=== PATIENT | male | born 1960 | race Caucasian/White ===

== ENCOUNTER 2017-08-20 13:25 | Emergency (ER) | payer OTHER ==
[~2017-08-20] VITALS: Ht 180.3 cm; Wt 90.4 kg
[2017-08-20 13:35] VITALS: TEMP 36.4; Ht 180.3 cm; Wt 90.4 kg
[2017-08-20] MEDS ORDERED: PROPARACAINE HCL 0.5% OP SOLN 15 ML BTL ONE (13:47)
[2017-08-20 14:16] VITALS: BP 145/78; PULSE 76; O2SAT 98
--- NOTE | 2017-08-20 19:40 | EMERGENCY ROOM VISIT NOTE ---
ED Visit Note First contact with patient: 13:40 Chief Complaint: Right eye bleeding. History of Present Illness: Mr. Sandoval is a 57-year-old white male who ambulates into the ED accompanied by his complaining of blood in the subconjunctival space of the lateral right eye. Historically patient denies any previous significant eye diseases/trauma/ surgery. Patient reports approximately 15-20 minutes prior to arrival at the hospital he walked out into his garage to have a cigarette. He reports he felt a mild pressure sensation over the lateral aspect of the right eye and rub the right eye. He then went into see his and noted moderate amount of blood over the lateral aspect of the right eye and a subconjunctival space. Currently he reports he is still having mild pressure sensation over the lateral aspect of the right eye. He rates his discomfort 2/10. The pain is nonradiating. He has not identified any aggravating or relieving factors related to this discomfort. He has not taken any medication for this discomfort prior to arrival at the hospital. Associated with his pain he reports he has mild light sensitivity. He denies fevers, chills, sweats, skin eruptions, headache, dizziness, lightheadedness, visual changes, floaters, sparkling lights, recent eye trauma. Review of Systems: As noted above in history of present illness. Past Medical History: Patient denies. Current Medications: Patient denies. Allergies to Medications: Patient denies. Social History: Physical Examination: Vital Signs: Date Time Temp Pulse Resp B/P (MAP) Pulse Ox O2 Delivery O2 Flow Rate FiO2 08/20/17 14:16 76 16 145/78 98 08/20/17 13:35 36.4 74 18 150/91 96 Room Air GENERAL: 57-year-old male in no acute distress, nontoxic-appearing, afebrile and hemodynamically stable. NEUROLOGICAL: Awake, alert and oriented to person, place and time. Answering questions appropriately and following commands. Normal gait. SKIN: Warm, dry and pink. No soft tissue trauma noted. HEENT: Atraumatic and normocephalic. PERRLA. EOMI without nystagmus. Sclera bloody over the lateral and inferior aspect of the orbit. Conjunctiva pink without drainage. A small hand like material was noted over the 9 o'clock position on the cornea. No other foreign bodies were noted under the eyelids are embedded in the cornea. Anterior chamber was clear. Visual acuity: 20/40 bilaterally without correction. On slit lamp examination the foreign body was noted again. There was no uptake of the stain throughout the cornea. ED Course: Patient is assessed as noted above. Patient's medication list was reviewed. Alcaine was used to anesthetize the eye for examination. Before body was easily removed with a sterile saline saturated cotton-tip appendectomy later. Patient was educated about today's findings and instructed on his treatment plan ; he verbalized understanding and agreement with this plan. Clinical Impression: Subconjunctival hemorrhage of the right eye. Radial foreign body. Disposition: Patient discharged home in stable condition accompanied by his ; prior to departure he was reassessed and subjectively reported he was pain- free. Plan: Patient is encouraged to use acetaminophen every 6 hours as needed for comfort and also cool compresses for comfort. Patient is encouraged return ED for recheck in 36-48 hours. Patient is encouraged return ED for uncontrolled pain, visual changes, headaches , vomiting, fever or any new/concerning symptoms.
== END 2017-08-20 14:18 | disposition home or self-care (01) ==
LOC: C.EDB 13:28 → C.EDD 14:18
DX: H11.31 Conjunctival hemorrhage, right eye (principal); T15.01XA Foreign body in cornea, right eye, initial encounter; X58.XXXA Exposure to other specified factors, initial encounter

== ENCOUNTER 2017-08-23 15:55 | Emergency (ER) | payer OTHER ==
[~2017-08-23] VITALS: Ht 180.3 cm; Wt 91.7 kg
[2017-08-23 15:59] VITALS: BP 121/78; PULSE 80; TEMP 37; O2SAT 95; Ht 180.3 cm; Wt 91.7 kg
--- NOTE | 2017-08-23 16:39 | EMERGENCY ROOM VISIT NOTE ---
History First contact with patient: 16:05 Chief Complaint: EYE ASSESSMENT Stated Complaint: RIGHT EYE RECHECK History of Present Illness The patient is a 57 year old male who presents to the Emergency Room via private vehicle accompanied by female and small child with complaints of "right eye recheck". The patient states he was seen here 3 days ago for a subconjunctival hemorrhage. He states that after he went home that evening the redness worsened. He notes only slight change in vision. He denies any pain or trauma. He states he was recommended to come back for recheck of the eye. Review of Systems A complete 6-point Review of Systems was discussed with the patient, with pertinent positives and negatives listed in the History of Present Illness. All remaining Review of Systems questions can be considered negative unless otherwise specified. Past Medical/Surgical History Medical Problems: (1) No Known Active Medical Problems Family History Non contributory Social History Smoking Status: Current Every Day Smoker Marital Status: Housing Status: lives with significant other Occupation Status: employed Current/Historical Medications No Active Prescriptions or Reported Meds Physical Exam Vital Signs Date Time Temp Pulse Resp B/P (MAP) Pulse Ox O2 Delivery O2 Flow Rate FiO2 08/23/17 15:59 37.0 80 20 121/78 95 Room Air Right Eye Acuity: 20/50 Left Eye Acuity: 20/30 Physical Exam VITAL SIGNS - Vital signs and nursing notes were reviewed. Stable, GENERAL - 57-year-old male appearing his stated age who is in no acute distress. Communicates well with provider and answers questions appropriately. SKIN - Without rashes. Skin around eye is unremarkable. HEAD - NC/AT. EYES - PERRL with EOMI bilaterally. Sclera anicteric. R subconjucitival hemorrage, diffuse. Does not cross limbus. No protrusion. No tears or blood in eye moisture. Palpebral conjunctiva pink and moist with no injection noted. An Automated Tonometer was utilized to obtain bilateral orbital pressures. The pressures in the LEFT eye were found to be 16, 16 with an average of 16. The pressures in the RIGHT eye were found to be 15, 15 with an average of 15. Patient tolerated the procedure well and no complications were met. Slit Lamp Examination was performed of the R eye(s). Alcaine drops were applied to the affected eye(s) for proper anesthetization. The affected eye(s) were stained with Fluorescein stain to precipitate adequate visualization of any conjunctival/scleral excoriations or ulcers. The patient's face was comfortably rested on the chin guard of the slit lamp apparatus. The lights were dimmed and the affected eye(s) were thoroughly examined under microscopy using the blue light. No uptake was present in the R eye just remonstration of the diffuse subconjunctival hemorrhage. Negative Seidels sign. Additionally, the eye(s) were examined under microscopy using the regular light. Close examination revealed No other ailments. Patient tolerated the procedure well and no complications were met. Medical Decision & Procedures Medical Decision Patient was seen and evaluated as above. He presents to us today with a right subconjunctival hemorrhage. I suspect that the worsening of the submental hemorrhage after he was seen here was secondary to the blood being dispersed throughout the subconjunctival region. There is no evidence of hemorrhage. There is no evidence of puncture. Slitlamp exam unremarkable. I suspect that it will take weeks for this to be absorbed. Pressures were normal. He is to follow up with ophthalmology later this week for reevaluation. He was thoroughly educated upon worrisome symptoms which to return, had questions prior to discharge, and was discharged home in good condition. In the evaluation and treatment of this patient, the following differential diagnoses were considered: Corneal Abrasion, Conjunctivitis, Eye Contusion, Globe Injury, Orbital Floor Injury (Blowout Fracture), Corneal Ulcer, Keratitis , Herpes Zoster Opthalmic, Blepharitis, Orbital Cellulitis, Iritis, Scleritis/ Episcleritis, Uveitis, Temporal Arteritis, Subconjunctival Hemorrhage. Impression Primary Impression: Subconjunctival hemorrhage of right eye Departure Information Dispostion Home / Self-Care Condition GOOD Prescriptions No Active Prescriptions or Reported Meds Referrals Ashok Mcghee D.O. (PCP) Basim Carrillo MD Patient Instructions My [facility] Additional Instructions You were seen in the emergency department for reevaluation of your subconjunctival hemorrhage in the right eye. At this time I believe that you're healing process is appropriate. I would recommend however follow-up with an [facility] for reevaluation later in the week. Please call your eye doctor and if not able to see them please call the eye doctor that I have listed, Dr. Carrillo Please return with any new/concerning symptoms. Thank you for your time.
== END 2017-08-23 16:40 | disposition home or self-care (01) ==
LOC: C.EDB 15:55 → C.EDD 16:40
DX: H11.31 Conjunctival hemorrhage, right eye (principal); F17.200 Nicotine dependence, unspecified, uncomplicated

== ENCOUNTER 2019-04-21 07:07 | Inpatient (IN) ==
[2019-04-21] MEDS ORDERED: dilTIAZem HCl 5 MG/ML 5 ML VIAL IV STA (07:22)
[2019-04-21] MEDS ORDERED: SODIUM CHLORIDE 0.9% 1000ML 1,000 ML IV SCH (07:30)
[2019-04-21] MEDS: MAGNESIUM SULFATE / D5W 1 GM/100 ML BAG IV SCH ×3 (07:39→10:52)
--- NOTE | 2019-04-21 07:44 | XRay Report ---
XR chest 1V portable HISTORY: Atypical Chest Pain COMPARISON: Chest 07/26/2014. FINDINGS: The lungs are clear. Cardiac silhouette is normal in size. No pleural effusions. No pneumot horax. IMPRESSION: No acute process. Electronically signed by: Benjamin Gaston M.D. 04/21/2019 7:43 AM
[2019-04-21 07:56] LABS: Basophils # (auto) 0.03 K/uL (0-0.2); Basophils % (auto) 0.4 %; Eosinophils # (auto) 0.01 K/uL (0-0.5); Eosinophils % (auto) 0.1 %; Hematocrit (blood only) 47.7 % (42-52); Hemoglobin 17.1 g/dL (14.0-18.0); Immature Granulocytes # (auto) 0.01 K/uL (0.00-0.02); Immature Granulocytes % (auto) 0.1 %; Lymphocytes # (auto) 1.33 K/uL (1.2-3.4); Lymphocytes % (auto) 17.3 %; Mean Corpuscular Hemoglobin 32.5 pg (25-34); Mean Corpuscular Hgb Conc 35.8 g/dL (32-36); Mean Corpuscular Volume 90.7 fL (80-100); Mean Platelet Volume 10.5 fL (7.4-10.4); Monocytes # (auto) 1.08 K/uL (0.11-0.59); Monocytes % (auto) 14.1 %; Neutrophils # (auto) 5.21 K/uL (1.4-6.5); Platelet Count 150 K/uL (130-400); RDW Standard Deviation 43.2 fL (36.4-46.3); Red Blood Count 5.26 M/uL (4.7-6.1); White Blood Count 7.67 K/uL (4.8-10.8)
[2019-04-21 08:09] LABS: iSTAT Creatinine 1.1 mg/dl (0.6-1.3); iSTAT Hemoglobin 17.3 g/dl (14.0-18.0); iSTAT Ionized Calcium 1.11 mmol/l (1.12-1.32)
[2019-04-21 08:09] LABS: Appearance Urine Clear (Clear); Bacteria Urine Automated Negative (Negative); Blood Urine Trace (Negative); Color Urine Dark Yellow; Epithelial Cell Urine Auto 20-30 /lpf (0-5); Glucose Urine UA Negative (Negative); Leukocyte Esterase Urine Negative (Negative); Nitrite Urine Negative (Negative); Protein Urine Trace (Negative); Specific Gravity Urine 1.031 (1.000-1.030); Urobilinogen Urine Negative (Negative)
[2019-04-21 08:15] LABS: Bilirubin Urine Negative (Negative); Ictotest Urine Negative (Negative)
[2019-04-21 08:16] LABS: Ketones Urine 3+ (Negative)
[2019-04-21 08:21] LABS: Alanine Aminotransferase 53 U/L (12-78); Albumin Level 3.8 gm/dl (3.4-5.0); Aspartate Aminotransferase 30 U/L (15-37); Blood Urea Nitrogen 15 mg/dl (7-18); Calcium 8.6 mg/dl (8.5-10.1); Carbon Dioxide 23 mmol/L (21-32); Chloride 102 mmol/L (98-107); Creatinine Clr Calc Pharmacy 73.4 ml/min; Est GFR (African American) 80.6; Est GFR (Non-African American) 69.5; Glucose 138 mg/dl (70-99); Lipase 59 U/L (73-393); Potassium 3.9 mmol/L (3.5-5.1); Sodium 135 mmol/L (136-145)
[2019-04-21 08:22] LABS: INR 1.2 (0.9-1.1); Partial Thromboplastin Ratio 1.2; Partial Thromboplastin Time 31.2 Seconds (21.0-31.0); Prothrombin Time 11.9 Seconds (9.0-12.0)
[2019-04-21 08:27] LABS: Alkaline Phosphatase 75 U/L (45-117); Bilirubin,Total 0.7 mg/dl (0.2-1); Creatine Kinase 56 U/L (39-308); Creatine Kinase MB < 1.0 ng/ml (0.5-3.6); Globulin 3.7 gm/dl (2.5-4.0); NT Pro B Type Natriuretic Pept 656 pg/ml (0-900); Total Protein 7.5 gm/dl (6.4-8.2); Troponin I < 0.015 ng/ml (0-0.045)
[2019-04-21 08:54] LABS: Lyme Ab IgG w/WB Rflx Negative (Negative); Lyme Ab IgM w/WB Rflx Negative (Negative)
--- NOTE | 2019-04-21 09:46 | Cardiology Consultation ---
Date of Consultation April 21, 2019 Assessment & Plan (1) Atrial fibrillation: (2) SOB (shortness of breath) on exertion: (3) Near syncope: (4) Fever: Continue IV hydration. Start oral metoprolol for further rate control as anticipate the IV diltiazem is going to wear off shortly. His [id number] score is 0 although I do not have his LVEF data yet and he does have exertional shortness of breath, so cardiomyopathy needs to be excluded. In the short-term, recommend anticoagulation, will start Eliquis 5 mg twice daily. His blood count and hemoglobin are stable and he has had no recent bleeding. I tried to call his pharmacy to see what his [id number] cost would be, but his insurance information needs to be updated, his daughter is going to work on updating the insurance information and I will follow-up. An echocardiogram has been requested. The patient is to be admitted to the [facility] and will be observed on the telemetry unit. Blood cultures will be obtained as well as Lyme titer and anaplasmosis assessment. Further recommendations be forthcoming as his hospital stay develops. Dr. Ardon will be rounding tomorrow 04/22/2019. History of Present Illness History of Present Illness Jonatan Sandoval is a 58 year old male seen cardiology consultation per the request of Dr. Mando Julien of the emergency department. The patient's primary care provider is Dr. Ashok Mcghee of [facility]. This is his first encounter with cardiology. The patient was seen in room A11 -B in the emergency room. He was accompanied by his daughter, Pauly. His spouse is actually in the OR at [facility] now having a hysterectomy procedure. Patient describes that he was in his normal state of health until approximately 3 days ago on Wednesday when he developed symptoms of lightheadedness, feeling like he was going to pass out, and associated shortness of breath. He also developed a fever at home with a maximum temperature recorded at home of 101.2 F yesterday. He describes that his "bones ache" and he has developed a sore throat within the last few hours. He does not recollect having any recent tick bites, but he is in the outdoors often. He works in the construction field. His social history is notable for cigarette smoking. He has cut down to 3 to 4 cigarettes/week. He works in construction. His family history is notable for his father having at age 73 due to a presumed myocardial infarction. His mother at age 81 due to dementia and diabetes. His brother of colon cancer the age of 32 and the patient had a screening colonoscopy performed in 2018 with findings of diverticulosis, and an interval 3-year follow-up study was recommended for ongoing screening purposes. EKG performed on arrival 04/21/2019 at 7:12 AM and reviewed independently revealed atrial fibrillation at 132 bpm with 2 noted PVCs, lateral T wave flattening and T wave inversion was also noted in lead aVL. The patient's ventricular rate was as high as 150 bpm at rest on initial presentation. At the time of my assessment the emergency room the patient had received normal saline, and a dose of 22 mg of IV diltiazem administered at 7:38 AM. His ventricular rate was down to the 90 bpm range. His systolic blood pressure was ranging from 90 to 112 mmHg. He was afebrile with a temperature in the emergency room of 37.5 C. Allergies Allergy/AdvReac Type Severity Reaction Status Date / Time No Known Allergies Allergy Mild Unverified 04/21/19 07:29 Home Medications Home Medications Medication Instructions Recorded Confirmed Type acetaminophen [Tylenol Extra 1,000 mg PO Q6H PRN 04/21/19 04/21/19 History Strength] Patient History Medical History Cigarette smoker Social History Preferred Language: Telugu Feels Safe at Home: Yes Smoking Status: Current some day smoker Review of Systems Review of Systems: All systems reviewed & are unremarkable except as noted in HPI & below Physical Exam Physical Exam: Temp Pulse Resp BP Pulse Ox 37.5 C 87 19 112/66 93 04/21/19 07:12 04/21/19 09:00 04/21/19 09:00 04/21/19 09:00 04/21/19 09:00 Constitutional: WD/WN, vitals as above Neck: trachea midline, no thyromegaly Respiratory: normal respiratory effort, lungs clear to auscultation Cardiovascular: Rate/Rhythm: + irregularly irregular Heart Sounds: no murmur Vessels: no JVD Extremities: no edema Gastrointestinal (Abdomen): normal bowel sounds, soft, nontender, no hepatosplenomegaly Neurologic: PERRL, EOMI, accommodation nl, no face palsy, no dysarthria Results & Data Vital Signs (Past 12 Hours) Vital Signs Temp Pulse Resp BP Pulse Ox 04/21/19 09:00 87 19 112/66 93 04/21/19 08:45 88 23 97/55 L 93 04/21/19 08:30 92 H 23 93/63 L 92 04/21/19 08:15 91 H 19 88/58 L 04/21/19 08:07 85 27 H 105/64 93 04/21/19 07:45 79 17 92 04/21/19 07:40 93 H 25 H 91/65 L 93 04/21/19 07:30 136 H 17 93 04/21/19 07:22 93 04/21/19 07:18 147 H 17 121/80 94 04/21/19 07:12 37.5 C 131 H 21 121/80 93 Laboratory Results Cardiac Enzymes 04/21/19 Range/Units 07:31 AST 30 (15-37) U/L CK-MB (CK-2) < 1.0 (0.5-3.6) ng/ml Troponin I < 0.015 (0-0.045) ng/ml Coagulation 04/21/19 Range/Units 07:33 PT 11.9 (9.0-12.0) Seconds APTT 31.2 H (21.0-31.0) Seconds CBC 04/21/19 Range/Units 07:31 WBC 7.67 (4.8-10.8) K/uL RBC 5.26 (4.7-6.1) M/uL Hgb 17.1 (14.0-18.0) g/dL Hct 47.7 (42-52) % Plt Count 150 (130-400) K/uL Neut # (Auto) 5.21 (1.4-6.5) K/uL Lymph # (Auto) 1.33 (1.2-3.4) K/uL [place] # (Auto) 1.08 H (0.11-0.59) K/uL Eos # (Auto) 0.01 (0-0.5) K/uL Baso # (Auto) 0.03 (0-0.2) K/uL Comprehensive Metabolic Panel 04/21/19 Range/Units 07:31 Sodium 135 L (136-145) mmol/L Potassium 3.9 (3.5-5.1) mmol/L Chloride 102 (98-107) mmol/L Carbon Dioxide 23 (21-32) mmol/L BUN 15 (7-18) mg/dl Creatinine 1.14 (0.6-1.4) mg/dl Glucose 138 H (70-99) mg/dl Calcium 8.6 (8.5-10.1) mg/dl AST 30 (15-37) U/L ALT 53 (12-78) U/L Alkaline Phosphatase 75 (45-117) U/L Total Protein 7.5 (6.4-8.2) gm/dl Albumin 3.8 (3.4-5.0) gm/dl Intake and Output 04/20/19 04/21/19 04/21/19 22:59 06:59 14:59 Intake Total 1100 / 1100 Balance 1100 / 1100 Intake: IV 1100 / 1100 MAGNESIUM SULFATE / D5W 1 gm In 100 / 100 100 ml @ 100 mls/hr IV Q1H [facility] Rx#:[id number] Nss 1000ML 1,000 ml @ 999 mls/ 1000 / 1000 hr IV .Q1H1M [facility] Rx#:[id number] Other: Weight 88.2 kg Patient Weight 04/22/19 06:59 Weight 88.2 kg Diagnostic Findings EKG as outlined above. Medications Administered Current Inpatient Medications Apixaban (Eliquis) 5 mg PO BID SHASHI Stop: 05/21/19 08:59 Magnesium Sulfate/Dextrose (Magnesium Sulfate / D5w) 1 gm in 100 mls @ 100 mls/hr IV Q1H SHASHI Stop: 04/21/19 11:29 Last Admin: 04/21/19 08:39 Dose: 100 mls/hr Documented by: Metoprolol Tartrate (Lopressor) 25 mg PO QID SHASHI Stop: 05/21/19 08:59
[2019-04-21 10:01] LABS: Thyroid Stimulating Hormone 2.56 uIu/ml (0.300-4.500)
--- NOTE | 2019-04-21 10:27 | History & Physical Report ---
Date of Service April 21, 2019 Assessment & Plan (1) Atrial fibrillation with RVR: This is a 58yo M with a PMH of HLD and tobacco use who presents with fever and shortness of breath x2 days was found to have A. fib with RVR. -New onset A Fib with RVR with HR initially in 130s-140s -Given diltiazem, IV fluids and magnesium replacement in the ED -Evaluated by Dr. Patel in the ED. Started on Eliquis 5mg BID and Lopressor 25mg QID -HR currently 90 with improved BP of 120/84 on telemetry -[id number] score 0 but will anticoagulate in the short term setting of new onset A Fib -2D echo ordered, trend troponin -Electrolytes, TSH wnl (2) Fever: Reported fever with T-max of 101.2 F yesterday along with chills, nausea, sore throat -No leukocytosis. CXR and UA appear normal -Lyme/anaplasma serology pending, throat culture pending, blood culture pending -Supportive care, add antibiotics if indicated (3) Prediabetes: A1c of 5.9 one year ago -BSG of 140 initially -A1c ordered for AM, add sliding scale if indicated (4) HLD (hyperlipidemia): Diet controlled -Fasting lipid panel ordered (5) Tobacco use disorder: Has decreased cigarette use to 3 daily but still using smokeless tobacco daily -Recommended cessation DVT Ppx: Started on Eliquis Code status: FULL PCP: Destiny Mcghee Dispo: Admitted to telemetry. Plan to return home once medically stable. Patient seen in collaboration with Dr. Esquivel. Please see addendum. History of Present Illness Chief Complaint: SOB, headache, sore throat, palpitations, fever Primary Care Provider: Ashok Mcghee DO This is a 58yo M with a PMH of HLD and tobacco use who presents with fever and shortness of breath x2 days. Patient has not been feeling like himself for the past few days, with T-max of 101.2 F yesterday. Also endorses chills, nausea without vomiting, sore throat, palpitations and shortness of breath. Noted irregular heartbeat last night and was unable to sleep. Also endorsing lightheadedness and near syncope with dull headache. Denies any dizziness, chest pain, cough, wheezing, vomiting, abdominal pain, dysuria, diarrhea or constipation. Denies any recent tick bites. No recent sick contacts. Patient with heart rate in 130s to 140s initially in ED with BP 91/65. EKG with evidence of A. fib with RVR at 134 bpm. Patient given diltiazem and magnesium replacement. Evlauated by Dr. Patel and started on Eliquis 5mg BID and Lopressor 25mg QID. Allergies Allergy/AdvReac Type Severity Reaction Status Date / Time No Known Allergies Allergy Mild Unverified 04/21/19 07:29 Home Medications Home Medications Medication Instructions Recorded Confirmed Type acetaminophen [Tylenol Extra 1,000 mg PO Q6H PRN 04/21/19 04/21/19 History Strength] Past Med/Surg History Medical History Tobacco use disorder (Chronic) Prediabetes (Chronic) HLD (hyperlipidemia) (Chronic) Cigarette smoker (Inactive) Family History Other Diabetes Heart disease Social History Preferred Language: Thai Communication Ability: Effective Iron Assorter Required: No Beliefs That Will Affect Care: None Current Living Situation: Spouse Other Information That Helps Us Care for You: Yes (HEARING ISSUES) Feels Safe at Home: Yes Safety Concerns: Feels Safe At This Time Smoking Status: Current every day smoker Tobacco Type: cigarettes and smokeless tobacco ; Cigarettes Per Day: 3-4 CIGARETTES PER WEEK, CHEWING TOBACCO 1.5 CANS/WEEK ; Do You Dip or Chew Tobacco: Yes ; Second Hand Exposure: Yes ; Tobacco Cessation Education Requested by Patient: No Hx Alcohol Use: Yes Alcohol type: beer Alcohol Intake Frequency: Rarely Hx Substance Use: No Review of Systems Review of Systems: At least ten systems reviewed and negative except as noted in the HPI. Physical Exam Physical Exam: General Appearance: WD/WN, no apparent distress, resting comfortably Head: normocephalic, atraumatic Eyes: normal inspection, PERRL, EOMI ENT: hearing grossly normal, pharynx normal (moist mucous membranes) Neck: supple, no JVD, no adenopathy Respiratory/Chest: lungs clear to auscultation. No wheezes, rales or rhonchi. No respiratory distress or accessory muscle use Cardiovascular: irregular rate & rhythm, no murmur appreciated, normal peripheral pulses, no BLE edema Abdomen/GI: normal bowel sounds, soft, non-tender to palpation Extremities/Musculoskelatal: normal inspection, no calf tenderness, normal capillary refill Neurologic/Psych: alert, normal mood/affect, oriented x 3 Skin: normal color, warm/dry Results & Data Vital Signs (Past 12 Hours) Vital Signs Temp Pulse Resp BP Pulse Ox 04/21/19 09:00 87 19 112/66 93 04/21/19 08:45 88 23 97/55 L 93 04/21/19 08:30 92 H 23 93/63 L 92 04/21/19 08:15 91 H 19 88/58 L 04/21/19 08:07 85 27 H 105/64 93 04/21/19 07:45 79 17 92 04/21/19 07:40 93 H 25 H 91/65 L 93 04/21/19 07:30 136 H 17 93 04/21/19 07:22 93 04/21/19 07:18 147 H 17 121/80 94 04/21/19 07:12 37.5 C 131 H 21 121/80 93 Laboratory Results Short CBC 04/21/19 Range/Units 07:31 WBC 7.67 (4.8-10.8) K/uL Hgb 17.1 (14.0-18.0) g/dL Hct 47.7 (42-52) % Plt Count 150 (130-400) K/uL BMP 04/21/19 07:31 Sodium 135 L Potassium 3.9 Chloride 102 Carbon Dioxide 23 BUN 15 Creatinine 1.14 Glucose 138 H Calcium 8.6 Cardiac Enzymes 04/21/19 Range/Units 07:31 Total Creatine Kinase 56 (39-308) U/L CK-MB (CK-2) < 1.0 (0.5-3.6) ng/ml Troponin I < 0.015 (0-0.045) ng/ml Liver Function 04/21/19 Range/Units 07:31 Total Bilirubin 0.7 (0.2-1) mg/dl AST 30 (15-37) U/L ALT 53 (12-78) U/L Alkaline Phosphatase 75 (45-117) U/L Albumin 3.8 (3.4-5.0) gm/dl Urine 04/21/19 Range/Units 07:40 Urine Color Dark Yellow Urine Appearance Clear (Clear) Urine pH 5.0 (4.5-7.5) Ur Specific [place] 1.031 H (1.000-1.030) Urine Protein Trace H (Negative) Urine Glucose (UA) Negative (Negative) Diagnostic Findings CXR: IMPRESSION: No acute process. ECG Rhythm: atrial fibrillation Findings: + T-wave inversion Code Status & VTE Plan VTE Prophylaxis Plan VTE Prophylaxis will be ordered: Yes Supervising Physician Co-Signing Physician Notes ATTENDING ADDENDUM Patient seen and examined, care coordinated with Barbara Salgado PA-C This is a 66-year-old male presented to the ER with fever sore throat cough shortness of breath and worsening weakness for the past 2 days Found to be in rapid A. fib RVR heart rate 136(no prior history of atrial fibrillation) Patient was given IV Cardizem, the ER which led to conversion of normal sinus rhythm rate controlled, Was found to be hypotensive, received IV fluids No evidence of sepsis Vitals: As documented Physical exam: GENERAL: No sign of distress, HEENT: Sclera nonicteric, pink-purple bilateral equal reactive to light extraocular muscle intact Normal oral mucosa, neck: No JVD, no thyromegaly, trachea midline Lungs: Clear to auscultate, no wheeze or rales Cardiovascular: Regular S1 and S2, no murmur or gallop, no JVD, no lower extremity edema Abdomen: Soft, nontender, bowel sounds active, no hepatosplenomegaly Extremities: No rash or deformity, normal joint, Neuro: No focal neurological deficit, no dysarthria, no facial droop Psych: Alert awake oriented x3: Euthymic Skin: No rash LYMPH NODES: No cervical lymphadenopathy ASSESSMENT and plan A. FIB RVR New diagnosis, no prior history of coronary artery disease of cardiac arrhythmia Possible presented by febrile illness, poor p.o. intake leading to dehydration Patient was evaluated by [facility] cardiology Dr. Patel in the ER Started with p.o. beta-adonay: Lopressor Due to unknown duration of A. fib, patient started on Eliquis 5 mg twice daily for stroke prophylaxis May need only 3 months of treatment: Calculated [id number] score 0 Serial cardiac enzymes ordered: Negative studies so far Resting echocardiogram shows no wall motion abnormality, normal LV ejection fraction, 50% No valvular pathology Patient will be observed in telemetry overnight Possible discharge home tomorrow: With Eliquis and beta-adonay Outpatient cardiology follow-up /patient will need ZIO Patch-to monitor for cardiac arrhythmia FEBRILE ILLNESS Possible viral illness, Has been ongoing for the past 2 to 3 days Very low-grade fever, generalized weakness poor p.o. intake Chest x-ray shows no evidence of infiltration Patient at present afebrile, normal white count Supportive care with IV fluids: Blood cultures ordered we will follow report SORE THROAT Possible viral etiology Strep throat swab: Negative Continue supportive care RECENT HISTORY OF BUG BITE No rash or swelling Had insect bite approximately 3 weeks ago Lyme titer negative Ordered for anaplasmosis assay Peripheral blood smear ordered for inclusion body(anaplasmosis) CODE STATUS: Full code DVT prophylaxis Eliquis Disposition: Plan to discharge home possible tomorrow Louise Esquivel MD
[2019-04-21] MEDS ORDERED: ALUMINUM/MAGNESIUM SUSP 30 ML UDC PO PRN (12:17)
[2019-04-21] MEDS ORDERED: MAGNESIUM HYDROXIDE SUSP 30 ML UDC PO PRN (12:17)
[2019-04-21] MEDS ORDERED: ONDANSETRON INJ 2 MG/ML 2 ML VIAL IV PRN (12:17)
[2019-04-21] MEDS ORDERED: POLYETHYLENE (MIRALAX) 17 GM PACK PO PRN (12:17)
[2019-04-21] MEDS ORDERED: NITROGLYCERIN SL 0.4 MG/TAB TAB SL PRN (12:17)
[2019-04-21] MEDS: SODIUM CHLORIDE 0.9% 1000ML 1,000 ML IV SCH ×2 (12:49→22:14)
[2019-04-21] MEDS: ACETAMINOPHEN 500 MG TAB PO PRN ×2 (12:49→20:32)
[2019-04-21] MEDS: APIXABAN 5 MG TABLET PO SCH ×2 (12:54→20:59)
[2019-04-21] MEDS ORDERED: METOPROLOL TARTRATE 25 MG TAB PO SCH (13:00)
--- NOTE | 2019-04-21 13:58 | Emergency Department Note ---
Entered by Thanh Garcia acting as a scribe for Mando Julien MD History of Present Illness General Chief complaint: Chest Pain Stated complaint: FEVER,CHEST PAIN,SYNCOPE Time Seen by Provider: 04/21/19 07:13 Source: patient History of Present Illness Onset (ago): hour(s) (this morning) Location: chest Pain Consistency: + constant Quality: + other (tightness) Associated symptoms: + headaches, + shortness of breath and + other (dizziness, lightheadedness, no able to sleep) The patient is a 58 y/o male who presents to the ED w/ CC of constant central chest tightness beginning this morning. He currently rates his discomfort an 8/10 in severity. The patient states he has had a fever for the past 2-3 days. He reports he has also had a headache for three days, and it is not the worst headache of his life. The patient notes he also has not been able to sleep. He states he developed chest pain and tightness this morning with dizziness, shortness of breath, and lightheadedness as if he was going to pass out. The patient reports he has been taking Tylenol for his cold without other medications. He states he has a history of an EKG change the last time he was here. He notes he also has been exposed to ticks recently, has dogs that go outside, and has been outside recently. The patient states he is an intermittent smoker. He denies being in a-fib before and taking medication daily. Home Medications Home Medications Medication Instructions Recorded Confirmed Type acetaminophen [Tylenol Extra 1,000 mg PO Q6H PRN 04/21/19 04/21/19 History Strength] Allergies Allergy/AdvReac Type Severity Reaction Status Date / Time No Known Allergies Allergy Mild Unverified 04/21/19 07:29 Past Med/Surg History Medical History Tobacco use disorder (Chronic) Prediabetes (Chronic) HLD (hyperlipidemia) (Chronic) Cigarette smoker (Inactive) Family History Other Diabetes Heart disease Social History Preferred Language: Tajik Communication Ability: Effective [employer] Required: No Beliefs That Will Affect Care: None Current Living Situation: Spouse Other Information That Helps Us Care for You: Yes (HEARING ISSUES) Feels Safe at Home: Yes Safety Concerns: Feels Safe At This Time Smoking Status: Current every day smoker Tobacco Type: cigarettes and smokeless tobacco ; Cigarettes Per Day: 3-4 CIGARETTES PER WEEK, CHEWING TOBACCO 1.5 CANS/WEEK ; Do You Dip or Chew Tobacco: Yes ; Second Hand Exposure: Yes ; Tobacco Cessation Education Requested by Patient: No Hx Alcohol Use: Yes Alcohol type: beer Alcohol Intake Frequency: Rarely Hx Substance Use: No Review of Systems See HPI for pertinent positives & negatives. and A total of 10 systems reviewed and were otherwise negative Physical Exam Vital Signs Vital Signs - 24 hr 04/21/19 07:12 04/21/19 07:18 04/21/19 07:22 Temperature 37.5 C Temperature Source Oral Sepsis Recent Fever Within 48 Hours Yes Sepsis New/Unexplained Change in Mental Status No Sepsis Action Taken by Nursing No Action Required Pulse Rate 131 H 147 H Pulse Rate from SpO2 Sensor 108 H Pulse Rhythm Irregular Respiratory Rate 21 17 Respiratory Effort / Characteristics Non-Labored Respiratory Depth Normal Respiratory Pattern Regular Blood Pressure 121/80 121/80 Blood Pressure Mean 93 93 Pulse Oximetry 93 94 93 Oxygen Delivery Method Room Air Room Air Oxygen Flow Rate 0 0 04/21/19 07:30 04/21/19 07:40 04/21/19 07:45 Temperature Temperature Source Sepsis Recent Fever Within 48 Hours Sepsis New/Unexplained Change in Mental Status Sepsis Action Taken by Nursing Pulse Rate 136 H 93 H 79 Pulse Rate from SpO2 Sensor 109 H 91 H 82 Pulse Rhythm Respiratory Rate 17 25 H 17 Respiratory Effort / Characteristics Respiratory Depth Respiratory Pattern Blood Pressure 91/65 L Blood Pressure Mean 73 Pulse Oximetry 93 93 92 Oxygen Delivery Method Oxygen Flow Rate 04/21/19 08:07 04/21/19 08:15 04/21/19 08:30 Temperature Temperature Source Sepsis Recent Fever Within 48 Hours Sepsis New/Unexplained Change in Mental Status Sepsis Action Taken by Nursing Pulse Rate 85 91 H 92 H Pulse Rate from SpO2 Sensor 86 91 H Pulse Rhythm Respiratory Rate 27 H 19 23 Respiratory Effort / Characteristics Respiratory Depth Respiratory Pattern Blood Pressure 105/64 88/58 L 93/63 L Blood Pressure Mean 77 68 73 Pulse Oximetry 93 92 Oxygen Delivery Method Oxygen Flow Rate 04/21/19 08:45 04/21/19 09:00 04/21/19 09:15 Temperature Temperature Source Sepsis Recent Fever Within 48 Hours Sepsis New/Unexplained Change in Mental Status Sepsis Action Taken by Nursing Pulse Rate 88 87 90 Pulse Rate from SpO2 Sensor 88 91 H 90 Pulse Rhythm Respiratory Rate 23 19 25 H Respiratory Effort / Characteristics Respiratory Depth Respiratory Pattern Blood Pressure 97/55 L 112/66 93/69 L Blood Pressure Mean 69 81 77 Pulse Oximetry 93 93 93 Oxygen Delivery Method Oxygen Flow Rate 04/21/19 09:30 Temperature Temperature Source Sepsis Recent Fever Within 48 Hours Sepsis New/Unexplained Change in Mental Status Sepsis Action Taken by Nursing Pulse Rate 108 H Pulse Rate from SpO2 Sensor 93 H Pulse Rhythm Respiratory Rate 13 Respiratory Effort / Characteristics Respiratory Depth Respiratory Pattern Blood Pressure 108/75 Blood Pressure Mean 86 Pulse Oximetry 94 Oxygen Delivery Method Oxygen Flow Rate GENERAL: Awake, alert, well-appearing, in no acute distress HENT: Normocephalic, atraumatic. Oropharynx unremarkable. EYES: Normal conjunctiva. Sclera non-icteric. NECK: Supple. No nuchal rigidity. FROM. No JVD. RESPIRATORY: Bilateral wheezing present. CARDIAC: Regular rate, normal rhythm. Extremities warm and well perfused. Pulses equal. ABDOMEN: Soft, non-distended. No tenderness to palpation. No rebound or guarding. No masses. RECTAL: Deferred. MUSCULOSKELETAL: Chest examination reveals no tenderness. The back is symmetrical on inspection without obvious abnormality. There is no CVA tenderness to palpation. No joint edema. LOWER EXTREMITIES: Calves are equal size bilaterally and non-tender. No edema. No discoloration. NEURO: Normal sensorium. No sensory or motor deficits noted. SKIN: No rash or jaundice noted. Course 0714: Past medical records reviewed. The patient was evaluated in room A11B. A complete history and physical exam was performed. 0746: I reevaluated the patient. He is feeling better. His heart rate is down. His chest pain went away. I discussed findings and results with him. He verbalized agreement of the treatment plan. The patient will be evaluated for further management and care. 0839: Discussed the patient's case with Dr. Patel, Cardiology. The patient will be evaluated for further management. He asked that I paged the Hospitalist service and make them aware of the patient's case. 0854: I reviewed the patient's case with Dr. Quintana, [facility] Hospitalist. He will evaluate the patient for further management. Administered Medications Acetaminophen (Tylenol) 1,000 mg PO Q6H PRN PRN Reason: Fever Stop: 05/21/19 12:16 Last Admin: 04/21/19 12:49 Dose: 1,000 mg Documented by: [id number] Apixaban (Eliquis) 5 mg PO BID SHASHI Stop: 05/21/19 08:59 Last Admin: 04/21/19 12:54 Dose: 5 mg Documented by: [id number] Sodium Chloride (Nss 1000ml) 1,000 mls @ 100 mls/hr IV .Q10H SHASHI Stop: 05/21/19 12:16 Last Admin: 04/21/19 12:49 Dose: 100 mls/hr Documented by: [id number] Discontinued Medications Diltiazem HCl (Cardizem) 22 mg IV NOW [facility] Stop: 04/21/19 07:23 Last Admin: 04/21/19 07:38 Dose: 22 mg Documented by: [id number] Cosigned by: [id number] Magnesium Sulfate/Dextrose (Magnesium Sulfate / D5w) 1 gm in 100 mls @ 100 mls/hr IV Q1H SHASHI Stop: 04/21/19 11:29 Last Admin: 04/21/19 10:52 Dose: Not Given Documented by: [id number] Infusion: 04/21/19 09:39 Dose: 0 mls/hr Documented by: [id number] Admin: 04/21/19 08:39 Dose: 100 mls/hr Documented by: [id number] Infusion: 04/21/19 08:39 Dose: 0 mls/hr Documented by: [id number] Admin: 04/21/19 07:39 Dose: 100 mls/hr Documented by: [id number] Sodium Chloride (Nss 1000ml) 1,000 mls @ 999 mls/hr IV .Q1H1M SHASHI Stop: 04/21/19 08:30 Last Infusion: 04/21/19 08:45 Dose: 0 mls/hr Documented by: [id number] Admin: 04/21/19 07:39 Dose: 999 mls/hr Documented by: [id number] Metoprolol Tartrate (Lopressor) 25 mg PO QID SHASHI Stop: 05/21/19 12:59 Last Admin: 04/21/19 12:50 Dose: 25 mg Documented by: [id number] Medical Decision Making Differential Diagnosis Differential diagnoses includes but is not limited to acute coronary syndrome, myocardial infarction, pericarditis, pulmonary embolus, aortic dissection, pneumonia, pneumothorax, musculoskeletal, shingles, esophageal. Medical Records Attestation: I reviewed the patient's medical records. Home Medications Current Medication List: was personally reviewed by me Laboratory Data Attestation: I reviewed the patient's lab results. Result diagrams: 04/21/19 07:31 04/21/19 07:31 Lab Results 04/21/19 04/21/19 04/21/19 Range/Units 07:31 07:31 07:31 WBC 7.67 (4.8-10.8) K/uL RBC 5.26 (4.7-6.1) M/uL Hgb 17.1 (14.0-18.0) g/dL POC Hgb (14.0-18.0) g/dl Hct 47.7 (42-52) % POC Hct (42-52) % MCV 90.7 (80-100) fL MCH 32.5 (25-34) pg MCHC 35.8 (32-36) g/dL RDW Std Deviation 43.2 (36.4-46.3) fL RDW Coeff of Debbie 13.0 (11.5-14.5) % Plt Count 150 (130-400) K/uL MPV 10.5 H (7.4-10.4) fL Immature Gran % (Auto) 0.1 % Neut % (Auto) 68.0 % Lymph % (Auto) 17.3 % Hernando % (Auto) 14.1 % Eos % (Auto) 0.1 % Baso % (Auto) 0.4 % Immature Gran # (Auto) 0.01 (0.00-0.02) K/uL Neut # (Auto) 5.21 (1.4-6.5) K/uL Lymph # (Auto) 1.33 (1.2-3.4) K/uL Hernando # (Auto) 1.08 H (0.11-0.59) K/uL Eos # (Auto) 0.01 (0-0.5) K/uL Baso # (Auto) 0.03 (0-0.2) K/uL Peripher Smr Path Cons Cancelled PT (9.0-12.0) Seconds INR (0.9-1.1) APTT (21.0-31.0) Seconds PTT Ratio POC Sodium (135-144) mEq/L Sodium 135 L (136-145) mmol/L POC Potassium (3.3-5.0) mEq/L Potassium 3.9 (3.5-5.1) mmol/L POC Chloride (101-112) mEq/L Chloride 102 (98-107) mmol/L Carbon Dioxide 23 (21-32) mmol/L POC Total CO2 (24-31) mEq/l Anion Gap 10.0 (3-11) POC Anion Gap (16-25) mmol/L POC BUN (7-18) mg/dl BUN 15 (7-18) mg/dl Creatinine 1.14 (0.6-1.4) mg/dl POC Creatinine (0.6-1.3) mg/dl Est Cr Clr Drug Dosing 73.4 ml/min Est GFR ( Amer) 80.6 Est GFR (Non-Af Amer) 69.5 BUN/Creatinine Ratio 13.0 (10-20) Glucose 138 H (70-99) mg/dl POC Glucose (other) (70-99) mg/dl Calcium 8.6 (8.5-10.1) mg/dl POC Ioniz Calcium Jeevan (1.12-1.32) mmol/l Magnesium (1.8-2.4) mg/dl Total Bilirubin 0.7 (0.2-1) mg/dl AST 30 (15-37) U/L ALT 53 (12-78) U/L Alkaline Phosphatase 75 (45-117) U/L Total Creatine Kinase 56 (39-308) U/L CK-MB (CK-2) < 1.0 (0.5-3.6) ng/ml CK/CKMB % Calc TNP Troponin I < 0.015 (0-0.045) ng/ml NT-Pro-B Natriuret Pep 656 (0-900) pg/ml Total Protein 7.5 (6.4-8.2) gm/dl Albumin 3.8 (3.4-5.0) gm/dl Globulin 3.7 (2.5-4.0) gm/dl Albumin/Globulin Ratio 1.0 (0.9-2) Lipase 59 L (73-393) U/L TSH (0.300-4.500) uIu/ml Urine Color Urine Appearance (Clear) Urine pH (4.5-7.5) Ur Specific Rison (1.000-1.030) Urine Protein (Negative) Urine Glucose (UA) (Negative) Urine Ketones (Negative) Urine Blood (Negative) Urine Nitrite (Negative) Urine Bilirubin (Negative) Urine Urobilinogen (Negative) Ur Leukocyte Esterase (Negative) Urine WBC (Auto) (0-5) /hpf Urine RBC (Auto) (0-4) /hpf U Hyaline Cast (Auto) (0-5) /lpf U Epithel Cells (Auto) (0-5) /lpf Urine Bacteria (Auto) (Negative) Lyme Disease IgG Ab Negative (Negative) Lyme Disease IgM Ab Negative (Negative) 04/21/19 04/21/19 04/21/19 Range/Units 07:31 07:33 07:40 WBC (4.8-10.8) K/uL RBC (4.7-6.1) M/uL Hgb (14.0-18.0) g/dL POC Hgb (14.0-18.0) g/dl Hct (42-52) % POC Hct (42-52) % MCV (80-100) fL MCH (25-34) pg MCHC (32-36) g/dL RDW Std Deviation (36.4-46.3) fL RDW Coeff of Debbie (11.5-14.5) % Plt Count (130-400) K/uL MPV (7.4-10.4) fL Immature Gran % (Auto) % Neut % (Auto) % Lymph % (Auto) % Hernando % (Auto) % Eos % (Auto) % Baso % (Auto) % Immature Gran # (Auto) (0.00-0.02) K/uL Neut # (Auto) (1.4-6.5) K/uL Lymph # (Auto) (1.2-3.4) K/uL Hernando # (Auto) (0.11-0.59) K/uL Eos # (Auto) (0-0.5) K/uL Baso # (Auto) (0-0.2) K/uL Peripher Smr Path Cons PT 11.9 (9.0-12.0) Seconds INR 1.2 H (0.9-1.1) APTT 31.2 H (21.0-31.0) Seconds PTT Ratio 1.2 POC Sodium (135-144) mEq/L Sodium (136-145) mmol/L POC Potassium (3.3-5.0) mEq/L Potassium (3.5-5.1) mmol/L POC Chloride (101-112) mEq/L Chloride (98-107) mmol/L Carbon Dioxide (21-32) mmol/L POC Total CO2 (24-31) mEq/l Anion Gap (3-11) POC Anion Gap (16-25) mmol/L POC BUN (7-18) mg/dl BUN (7-18) mg/dl Creatinine (0.6-1.4) mg/dl POC Creatinine (0.6-1.3) mg/dl Est Cr Clr Drug Dosing ml/min Est GFR ( Amer) Est GFR (Non-Af Amer) BUN/Creatinine Ratio (10-20) Glucose (70-99) mg/dl POC Glucose (other) (70-99) mg/dl Calcium (8.5-10.1) mg/dl POC Ioniz Calcium Jeevan (1.12-1.32) mmol/l Magnesium 2.0 (1.8-2.4) mg/dl Total Bilirubin (0.2-1) mg/dl AST (15-37) U/L ALT (12-78) U/L Alkaline Phosphatase (45-117) U/L Total Creatine Kinase (39-308) U/L CK-MB (CK-2) (0.5-3.6) ng/ml CK/CKMB % Calc Troponin I (0-0.045) ng/ml NT-Pro-B Natriuret Pep (0-900) pg/ml Total Protein (6.4-8.2) gm/dl Albumin (3.4-5.0) gm/dl Globulin (2.5-4.0) gm/dl Albumin/Globulin Ratio (0.9-2) Lipase (73-393) U/L TSH 2.560 (0.300-4.500) uIu/ml Urine Color Dark Yellow Urine Appearance Clear (Clear) Urine pH 5.0 (4.5-7.5) Ur Specific Rison 1.031 H (1.000-1.030) Urine Protein Trace H (Negative) Urine Glucose (UA) Negative (Negative) Urine Ketones 3+ H (Negative) Urine Blood Trace H (Negative) Urine Nitrite Negative (Negative) Urine Bilirubin Negative (Negative) Urine Urobilinogen Negative (Negative) Ur Leukocyte Esterase Negative (Negative) Urine WBC (Auto) 1-5 (0-5) /hpf Urine RBC (Auto) 5-10 H (0-4) /hpf U Hyaline Cast (Auto) 1-5 (0-5) /lpf U Epithel Cells (Auto) 20-30 H (0-5) /lpf Urine Bacteria (Auto) Negative (Negative) Lyme Disease IgG Ab (Negative) Lyme Disease IgM Ab (Negative) 04/21/19 Range/Units 07:45 WBC (4.8-10.8) K/uL RBC (4.7-6.1) M/uL Hgb (14.0-18.0) g/dL POC Hgb 17.3 (14.0-18.0) g/dl Hct (42-52) % POC Hct 51 (42-52) % MCV (80-100) fL MCH (25-34) pg MCHC (32-36) g/dL RDW Std Deviation (36.4-46.3) fL RDW Coeff of Debbie (11.5-14.5) % Plt Count (130-400) K/uL MPV (7.4-10.4) fL Immature Gran % (Auto) % Neut % (Auto) % Lymph % (Auto) % Hernando % (Auto) % Eos % (Auto) % Baso % (Auto) % Immature Gran # (Auto) (0.00-0.02) K/uL Neut # (Auto) (1.4-6.5) K/uL Lymph # (Auto) (1.2-3.4) K/uL Hernando # (Auto) (0.11-0.59) K/uL Eos # (Auto) (0-0.5) K/uL Baso # (Auto) (0-0.2) K/uL Peripher Smr Path Cons PT (9.0-12.0) Seconds INR (0.9-1.1) APTT (21.0-31.0) Seconds PTT Ratio POC Sodium 135 (135-144) mEq/L Sodium (136-145) mmol/L POC Potassium 4.0 (3.3-5.0) mEq/L Potassium (3.5-5.1) mmol/L POC Chloride 100 L (101-112) mEq/L Chloride (98-107) mmol/L Carbon Dioxide (21-32) mmol/L POC Total CO2 22 L (24-31) mEq/l Anion Gap (3-11) POC Anion Gap 18.0 (16-25) mmol/L POC BUN 15 (7-18) mg/dl BUN (7-18) mg/dl Creatinine (0.6-1.4) mg/dl POC Creatinine 1.1 (0.6-1.3) mg/dl Est Cr Clr Drug Dosing ml/min Est GFR ( Amer) Est GFR (Non-Af Amer) BUN/Creatinine Ratio (10-20) Glucose (70-99) mg/dl POC Glucose (other) 144 H (70-99) mg/dl Calcium (8.5-10.1) mg/dl POC Ioniz Calcium Jeevan 1.11 L (1.12-1.32) mmol/l Magnesium (1.8-2.4) mg/dl Total Bilirubin (0.2-1) mg/dl AST (15-37) U/L ALT (12-78) U/L Alkaline Phosphatase (45-117) U/L Total Creatine Kinase (39-308) U/L CK-MB (CK-2) (0.5-3.6) ng/ml CK/CKMB % Calc Troponin I (0-0.045) ng/ml NT-Pro-B Natriuret Pep (0-900) pg/ml Total Protein (6.4-8.2) gm/dl Albumin (3.4-5.0) gm/dl Globulin (2.5-4.0) gm/dl Albumin/Globulin Ratio (0.9-2) Lipase (73-393) U/L TSH (0.300-4.500) uIu/ml Urine Color Urine Appearance (Clear) Urine pH (4.5-7.5) Ur Specific Rison (1.000-1.030) Urine Protein (Negative) Urine Glucose (UA) (Negative) Urine Ketones (Negative) Urine Blood (Negative) Urine Nitrite (Negative) Urine Bilirubin (Negative) Urine Urobilinogen (Negative) Ur Leukocyte Esterase (Negative) Urine WBC (Auto) (0-5) /hpf Urine RBC (Auto) (0-4) /hpf U Hyaline Cast (Auto) (0-5) /lpf U Epithel Cells (Auto) (0-5) /lpf Urine Bacteria (Auto) (Negative) Lyme Disease IgG Ab (Negative) Lyme Disease IgM Ab (Negative) Imaging Data Radiologist's Impression: Radiology results as stated below per my review and the radiologist's interpretation: XR chest 1V portable HISTORY: Atypical Chest Pain COMPARISON: Chest 07/26/2014. FINDINGS: The lungs are clear. Cardiac silhouette is normal in size. No pleural effusions. No pneumothorax. IMPRESSION: No acute process. Electronically signed by: Benjamin Gaston M.D. 04/21/2019 7:43 AM ECG Data Attestation: I personally reviewed and interpreted this ECG as follows: Indication: chest pain Rate (beats per minute): 132 Rhythm: atrial fibrillation Findings: + other (RVR); no ST depression, no ST elevation and no acute ischemic change Comparison ECG Date: from (07/26/14) Change: the following changes noted (Pt is now in a-fib) Additional Comments: REPEAT EKG IN THE SAME ED VISIT: Normal sinus 78, old inferior infarct, no ST elevation, no ST depression Blood Pressure Blood Pressure Findings: Normal blood pressure Blood Pressure Disposition: did not require urgent referral MDM Narrative This is a 58-year-old male who presents emergency department complaining of chest pain along with shortness of breath and general weakness. Upon arrival to the emergency department the patient is in atrial fibrillation with RVR. He was given a dose of Cardizem along with 4 g of magnesium repeat examination revealed improvement in the patient's pain. I did discuss the case with the [facility] rdiologist who asked that the patient be admitted to the hospitalist service. Patient was admitted to the hospitalist service. Both patient and daughter were in agreement with the treatment plan. Impression & Plan Atrial fibrillation with RVR, Tobacco use disorder, Prediabetes, HLD (hyperlipidemia) Critical Care Time Critical Care Time: Yes Total Critical Care Time: 90 I have personally spent 90 minutes of critical care time in the direct management of this patient. This includes bedside care, interpretation of diagnostic studies, and testing, discussion with consultants, patient, and family members, and other required patient management activities. This 90 minutes is in excess of all separately billable procedures. Discharge Plan Visit Data *Final* Discharge Date/Time: 04/21/19 11:56 Chief Complaint: Chest Pain Stated Complaint: FEVER,CHEST PAIN,SYNCOPE ED Provider: Mando Julien Discharge Problem: Atrial fibrillation with RVR, Tobacco use disorder, Prediabetes, HLD (hyperlipidemia) Patient Disposition: Admitted As Inpatient Discharge Instructions Interventions: ED Discharge Assessment Last Done: 04/21/19 11:56 The scribe's documentation has been prepared under my direction and personally reviewed by me in its entirety. I confirm that the note above accurately reflects all work, treatment, procedures, and medical decision making performed by me.
[2019-04-21] MEDS: METOPROLOL TARTRATE 25 MG TAB PO SCH (21:00)
[2019-04-21] MEDS ORDERED: MoRPHine SULFATE 4 MG/ML 1 ML CARP\\VIAL IV STA (21:09)
[2019-04-21] MEDS ORDERED: OPTIRAY 320 125ml IV PRN (22:46)
--- NOTE | 2019-04-21 23:27 | CT Scan Report ---
CT ANGIOGRAPHY OF THE CHEST, PULMONARY EMBOLUS PROTOCOL CLINICAL HISTORY: Chest pain. COMPARISON STUDY: Chest radiograph April 21, 2019. TECHNIQUE: Following IV administration of 119 mL of Optiray-320, helical axial images of the chest we re obtained utilizing the pulmonary embolus protocol. Maximal intensity projections and sagittal and coronal reformats were viewed on an independent 3D workstation. IV contrast was administered withou t complication. Automated exposure control was utilized for the study. A dose lowering technique wa s utilized adhering to the principles of ALARA. CT DOSE: 704.83 mGy.cm FINDINGS: No pulmonary emboli are identified. There is no evidence for thoracic aortic dissection. T he size of the heart is normal. There are borderline enlarged mediastinal and bilateral hilar lymph n odes. Index AP window lymph node measures 1 cm in short axis diameter. Index right paratracheal lymph node also measures 1 cm short axis diameter. There is no pneumothorax. Bilateral lower lobe opacitie s reflect atelectasis. There is no consolidation to suggest pneumonia. Central airways are patent. Th ere are no suspicious osseous lesions within the bony thorax. Upper abdomen is unremarkable. IMPRESSION: 1. No pulmonary emboli identified. 2. Bilateral lower lobe opacities consistent with atelectasis. 3. Borderline enlarged mediastinal and bilateral hilar lymph nodes. These are probably benign however a follow-up chest CT in 6 months to ensure stability is recommended. Electronically signed by: Víctor Ward M.D. 04/21/2019 11:25 PM
[2019-04-22] MEDS: ACETAMINOPHEN 500 MG TAB PO PRN (03:42)
[2019-04-22 06:52] LABS: Estimated Average Glucose 126 mg/dl
[2019-04-22 09:01] LABS: Hematocrit (blood only) 41.1 % (42-52); Hemoglobin 14.5 g/dL (14.0-18.0); Mean Corpuscular Hemoglobin 32.4 pg (25-34); Mean Corpuscular Hgb Conc 35.3 g/dL (32-36); Mean Corpuscular Volume 91.9 fL (80-100); Mean Platelet Volume 10.7 fL (7.4-10.4); Platelet Count 105 K/uL (130-400); RDW Coefficient of Variation 13.3 % (11.5-14.5); RDW Standard Deviation 44.6 fL (36.4-46.3); Red Blood Count 4.47 M/uL (4.7-6.1); White Blood Count 5.39 K/uL (4.8-10.8)
[2019-04-22] MEDS: SODIUM CHLORIDE 0.9% 1000ML 1,000 ML IV SCH ×3 (09:03→23:24)
[2019-04-22] MEDS: APIXABAN 5 MG TABLET PO SCH ×2 (09:04→20:18)
[2019-04-22] MEDS: METOPROLOL TARTRATE 25 MG TAB PO SCH ×2 (09:04→20:18)
[2019-04-22 09:28] LABS: BUN Creatinine Ratio 11.8 (10-20); Est GFR (Non-African American) 77.7; Magnesium 2.3 mg/dl (1.8-2.4); Potassium 3.8 mmol/L (3.5-5.1)
[2019-04-22] MEDS ORDERED: DOXYCYCLINE HYCLATE 100 MG CAP PO SCH (11:15)
--- NOTE | 2019-04-22 12:18 | Cardiology Progress Note ---
Date of Service April 22, 2019 Assessment & Plan (1) Atrial fibrillation with RVR: spontaneously converted to sinus tolerating metoprolol and Eliquis without issue no further cardiac testing or intervention necessary outpatient follow up already arranged by Dr. Jorge kidd to d/c to home from cardiac standpoint (2) Fever: unclear etiology will defer to primary team Subjective Pt seen and examined, states that he's ok this AM. Slight headache and a fever reported overnight but denies cp, sob, palpitations, lightheadedness or dizziness. tele reviewed: sinus rhythm without recurrence of afib Review of Systems Review of Systems: All systems reviewed & are unremarkable except as noted in HPI & below Physical Exam Physical Exam: General: Awake, alert and oriented x 3. No acute distress. HEENT: Normocephalic, atraumatic. Pupils equal, round and reactive to light and accommodation. Extraocular muscles are intact. Anicteric sclera. Moist mucous membranes. Neck: No JVD. No bruit. Cardiovascular: Regular. Positive S-4. Normal S-1 and S-2. No S-3. No murmurs or rubs. Pulmonary: Clear to auscultation B/L. No rales, rhonchi or wheezing Abdomen: Bowel sounds x 4, soft. No rebound, guarding or tenderness. No organomegaly. Extremities: No clubbing, cyanosis or edema. +2 pedal pulses bilaterally. Skin: Warm and dry. Results & Data Vital Signs (Past 12 Hours) Vital Signs Temp Pulse Resp BP BP Pulse Ox 04/22/19 11:03 37.1 C 78 19 119/75 96 04/22/19 07:00 37.0 C 75 16 104/64 93 04/22/19 03:02 37.7 C H 83 16 113/72 94
[2019-04-22] MEDS ORDERED: ACETAMINOPHEN 1,000 MG/100 ML VIAL IV PRN (13:30)
[2019-04-22] MEDS ORDERED: KETOROLAC 30 MG/ML VIAL IV ONE (13:30)
[2019-04-22] MEDS ORDERED: LORazepam 0.5 MG TAB PO STA (13:32)
[2019-04-22 13:36] LABS: Influenza A virus by PCR Neg for Influ A (Neg); Influenza B virus by PCR Neg for Influ B (Neg)
[2019-04-22] MEDS: DOXYCYCLINE HYCLATE 100 MG in DEXTROSE 5% 100 ML IV SCH ×2 (14:26→20:20)
--- NOTE | 2019-04-22 17:57 | Hospitalist Progress Note ---
Date of Service April 22, 2019 Assessment & Plan (1) Fever: Continue to spike temperature, fever of unknown etiology -No leukocytosis. CXR and UA appear normal -Lyme negative/anaplasma serology pending Streptococcus throat swab negative Blood culture : No growth Patient started on empiric antibiotic with IV doxycycline Continue IV fluid resuscitation ID eval requested (2) Atrial fibrillation with RVR: Results sinus rhythm with rate controlled -Presented with new onset A Fib with RVR with HR initially in 130s-140s - possible preceded PTT to probably infection? -Evaluated by Dr. Patel in the ED. Started on Eliquis 5mg BID and Lopressor 25mg QID -Remains in sinus with rate controlled -[id number] score 0 but will need anticoagulate in the short term setting of new onset A Fib -2D echo : Normal ejection fraction, no valvular pathology, no wall motion abnormality Serial troponins been negative Cardiology evaluation Stable cardiac dodge, patient will continue with beta-adonay, Eliquis outpatient follow-up with cardiology (3) Prediabetes: Hemoglobin A1c 6.0 (4) HLD (hyperlipidemia): Diet controlled -Fasting lipid panel LDL 97 (5) Tobacco use disorder: Has decreased cigarette use to 3 daily but still using smokeless tobacco daily -Recommended cessation DVT Ppx: Started on Eliquis Code status: FULL PCP: Destiny Mcghee Dispo: Patient will need continued hospital stay for ongoing febrile illness Does not have cardiac arrhythmia Will be transferred to medical floor Subjective Converted to sinus remains rate controlled on the monitor Continues to spike temperature, has headache, No complaint of abdominal pain, poor appetite has nausea No vomiting 3-4 episodes of diarrhea since admission Physical Exam Constitutional: + ill appearing Eyes: PERRL, conjunctivae normal, anicteric sclerae ENMT: external ear and nose normal, oropharynx normal Neck: trachea midline, no thyromegaly Respiratory: normal respiratory effort, lungs clear to auscultation Cardiovascular: RRR, no murmur, no edema Gastrointestinal (Abdomen): Inspection/Auscultation: + abdomen distended Percussion/Palpation: abdomen soft; abdomen nontender Musculoskeletal: no cyanosis or clubbing, extremities motor strength 5/5 No rash Skin: no rashes, warm and dry Neurologic: PERRL, EOMI, accommodation nl, no face palsy, no dysarthria Psychiatric: A+Ox3, euthymic affect Results & Data Vital Signs (Past 12 Hours) Vital Signs Temp Pulse Pulse Resp BP BP Pulse Ox 04/22/19 15:23 37.8 C H 80 16 107/72 92 04/22/19 14:51 80 04/22/19 13:07 39.4 C H 04/22/19 11:03 37.1 C 78 19 119/75 96 04/22/19 07:32 72 04/22/19 07:00 37.0 C 75 16 104/64 93 (1) Fever Fever type: unspecified Qualified Code(s): R50.9 - Fever, unspecified (2) HLD (hyperlipidemia) Hyperlipidemia type: unspecified Qualified Code(s): E78.5 - Hyperlipidemia, unspecified
[2019-04-23] MEDS: SODIUM CHLORIDE 0.9% 1000ML 1,000 ML IV SCH ×2 (07:30→19:37)
[2019-04-23] MEDS: APIXABAN 5 MG TABLET PO SCH ×2 (09:01→20:56)
[2019-04-23] MEDS: METOPROLOL TARTRATE 25 MG TAB PO SCH ×2 (09:01→20:55)
[2019-04-23] MEDS: DOXYCYCLINE HYCLATE 100 MG in DEXTROSE 5% 100 ML IV SCH ×2 (09:05→20:56)
[2019-04-23] MEDS: KETOROLAC 30 MG/ML VIAL IV PRN (12:25)
[2019-04-23] MEDS ORDERED: HYDROmorphone INJ 1 MG/ML SYRINGE IV STA ×2 (12:39→12:44)
[2019-04-23] MEDS ORDERED: VANCOMYCIN CONSULT ACTIVE PRN (12:41)
[2019-04-23] MEDS ORDERED: HYDROmorphone INJ 1 MG/ML SYRINGE ONE (12:43)
[2019-04-23] MEDS ORDERED: PROMETHAZINE HCL 12.5 MG in SODIUM CHLORIDE 0.9% 50 ML IV PRN (12:54)
[2019-04-23] MEDS ORDERED: LORazepam 1 MG TAB PO PRN (12:54)
[2019-04-23 13:10] LABS: Basophils # (auto) 0.02 K/uL (0-0.2); Basophils % (auto) 0.3 %; Hematocrit (blood only) 34.5 % (42-52); Hemoglobin 12.4 g/dL (14.0-18.0); Immature Granulocytes # (auto) 0.01 K/uL (0.00-0.02); Immature Granulocytes % (auto) 0.2 %; Lymphocytes % (auto) 14.6 %; Mean Corpuscular Hemoglobin 32.1 pg (25-34); Mean Corpuscular Hgb Conc 35.9 g/dL (32-36); Mean Corpuscular Volume 89.4 fL (80-100); Mean Platelet Volume 10.5 fL (7.4-10.4); Monocytes % (auto) 8.1 %; Neutrophils # (auto) 4.75 K/uL (1.4-6.5); Neutrophils % (auto) 76.8 %; Platelet Count 101 K/uL (130-400); RDW Standard Deviation 42.4 fL (36.4-46.3); Red Blood Count 3.86 M/uL (4.7-6.1); White Blood Count 6.18 K/uL (4.8-10.8)
[2019-04-23] MEDS ORDERED: DEXAMETHASONE SOD PHOSPHATE 4 MG in SYRINGE 0 ML IV ONE (13:15)
[2019-04-23] MEDS ORDERED: VANCOMYCIN HCL 2,250 MG in SODIUM CHLORIDE 0.9% 500 ML IV ONE (13:30)
--- NOTE | 2019-04-23 13:58 | Hospitalist Progress Note ---
Date of Service April 23, 2019 Assessment & Plan (1) Headache: Continues to have intractable headache, with intermittent fever, Localized throbbing headache the frontal and retro-orbital area, No photosensitivity No history of migraine headache Does not have any neck pain Ordered for IV Tylenol scheduled for febrile illness Added IV Rocephin meningitic dose, IV vancomycin Patient is on Eliquis for presentation with paroxysmal A. fib Lumbar puncture cannot be done in the setting of active anticoagulation CT head noncontrast ordered to rule out any intracranial pathology (2) Fever: T-max 39.2(102.6 Fahrenheit) Continue to spike temperature, fever of unknown etiology -No leukocytosis. CXR and UA appear normal -Lyme negative/anaplasma serology pending Streptococcus throat swab negative Blood culture : No growth Chest x-ray: Normal study(no report of cough) Patient started on empiric antibiotic with IV doxycycline Monospot test: Negative Having intermittent diarrhea: Stool C. difficile negative Stool culture ordered report pending Added empiric antibiotic with IV Rocephin 2 g every 12 hour(meningitic dose)/IV vancomycin lumbar puncture -cannot be done as patient is on Eliquis ID evaluation requested Present on Admission?: Yes (3) Atrial fibrillation with RVR: Resolved remains in sinus rhythm with rate controlled -Presented with new onset A Fib with RVR with HR initially in 130s-140s - possible precipitated by acute infection ? -Evaluated by Dr. Patel in the ED. Started on Eliquis 5mg BID and Lopressor 25mg QID -Remains in sinus with rate controlled since -[id number] score 0 but will need anticoagulate in the short term due to unknown duration of of A Fib -2D echo : Normal ejection fraction, no valvular pathology, no wall motion abnormality Serial troponins been negative Cardiology evaluation Stable cardiac dodge, patient will continue with beta-adonay, Eliquis (lumbar puncture contraindicated/high risk for epidural hematoma) outpatient follow-up with cardiology-for possible ZIO Patch Cardiac stress test for ischemic work-up (4) Prediabetes: Diet controlled Hemoglobin A1c 6.0 (5) HLD (hyperlipidemia): Diet controlled -Fasting lipid panel LDL 97 (6) Tobacco use disorder: Has decreased cigarette use to 3 daily but still using smokeless tobacco daily (chews tobacco) -Recommended cessation DVT Ppx: On Eliquis Code status: FULL PCP: S Anjanar Dispo: Patient will need continued hospital stay for ongoing febrile illness Expected to be discharged home when medically stable Family medicine follow-up with Dr. Ashok Gordon at [facility] Cardiology follow-up with Dr. Patel at [facility] cardiology clinic Subjective Continues to spike temperature, T-max 38.2 this morning Has intractable headache, mostly frontal and retro-orbital Unable to sleep last night secondary to headache Feels very miserable No nausea vomiting No abdominal pain Generalized muscle ache joint pain that has resolved Still having loose diarrhea, 2 episodes this morning, no blood in stool Physical Exam Constitutional: + acute distress (Indurated intractable headache) and + ill appearing Eyes: PERRL, conjunctivae normal, anicteric sclerae ENMT: external ear and nose normal, oropharynx normal Neck: trachea midline, no thyromegaly Respiratory: normal respiratory effort, lungs clear to auscultation Cardiovascular: RRR, no murmur, no edema Gastrointestinal (Abdomen): Inspection/Auscultation: + abdomen distended Percussion/Palpation: abdomen soft; abdomen nontender Musculoskeletal: no cyanosis or clubbing, extremities motor strength 5/5 Skin: no rashes, warm and dry Neurologic: PERRL, EOMI, accommodation nl, no face palsy, no dysarthria Psychiatric: A+Ox3, euthymic affect Results & Data Vital Signs (Past 12 Hours) Vital Signs Temp Pulse Resp BP Pulse Ox 04/23/19 13:55 36.8 C 04/23/19 07:12 38.4 C H 85 18 136/82 93 (1) Fever Fever type: unspecified Qualified Code(s): R50.9 - Fever, unspecified (2) HLD (hyperlipidemia) Hyperlipidemia type: unspecified Qualified Code(s): E78.5 - Hyperlipidemia, unspecified (3) Headache Headache chronicity pattern: acute headache Intractability: intractable
[2019-04-23] MEDS: ACETAMINOPHEN 1,000 MG/100 ML VIAL IV SCH ×2 (13:59→20:28)
--- NOTE | 2019-04-23 14:30 | CT Scan Report ---
CT head/brain wo con CLINICAL HISTORY: 58 years-old Male with intractable headache. Acute headache TECHNIQUE: Multiple axial CT images of the head were obtained without contrast. A dose lowering tech nique was utilized adhering to the principles of ALARA. CT DOSE: 729.19 mGycm COMPARISON: None. FINDINGS: No acute intracranial hemorrhage, midline shift, intracranial mass, hydrocephalus, territorial ischem ia or abnormal extra-axial collection. Minimal patchy white matter hypodensity suggest probable chron ic microvascular ischemic disease. The calvarium is intact. Mild mucosal thickening of the maxillary and ethmoid sinuses. Soft tissues and orbits are unremarkable. IMPRESSION: No acute intracranial abnormality. The above report was generated using voice recognition software. It may contain grammatical, syntax o r spelling errors. Electronically signed by: Nathaniel Ferrell M.D. 04/23/2019 2:29 PM
[2019-04-23] MEDS: cefTRIAXone SODIUM 2,000 MG in DEXTROSE 5% 50 ML IV SCH (15:08)
--- NOTE | 2019-04-23 15:29 | Infectious Disease Consult ---
Date of Consultation April 23, 2019 Assessment & Plan (1) Fever: 58-year-old male with fever and headache, no other localizing findings, only other significant laboratory abnormality is worsening thrombocytopenia. Certainly must be concerned about possibility of Anaplasma infection, and would expect him to respond quickly to doxycycline if this were the diagnosis. Given headache, possibility of mild aseptic meningitis possible, wonder about possible West Nile virus as well, but unable to perform lumbar puncture because of anticoagulation. Patient to be continued on current antibiotics pending further culture results and laboratory data as well as clinical response. Will follow. History of Present Illness Reason for Consultation: Fever Attending Physician: Louise Esquivel MD History of Present Illness 58-year-old male with history of atrial fibrillation, prediabetes, hyperlipidemia, who was in usual state of health until 2 days prior to admission when he noticed onset of palpitations, shortness of breath, fast heartbeat, then fever to 103 degrees with chills and severe headache. Eventually came to the emergency department for further management. Was found to be in rapid atrial fibrillation, and was admitted for further management. Has subsequently converted to normal sinus rhythm. Work-up so far has shown worsening thrombocytopenia, but negative blood cultures, no evidence of pneumonia on chest x-ray. Screening Lyme serology negative, studies for Anaplasma pending, review of peripheral smear unremarkable. Unable to do lumbar puncture because of anticoagulation. Patient started empirically on vancomycin, ceftriaxone, and doxycycline. Feeling slightly better this afternoon. Temperature currently normal, had fever earlier today. Allergies Allergy/AdvReac Type Severity Reaction Status Date / Time No Known Allergies Allergy Mild Unverified 04/21/19 07:29 Home Medications Home Medications Medication Instructions Recorded Confirmed Type acetaminophen [Tylenol Extra 1,000 mg PO Q6H PRN 04/21/19 04/21/19 History Strength] apixaban [Eliquis] 5 mg PO BID 30 Days #60 tab 04/21/19 Rx metoprolol tartrate 25 mg PO BID 30 Days #60 tab 04/21/19 Rx Patient History Medical History Tobacco use disorder (Chronic) Prediabetes (Chronic) HLD (hyperlipidemia) (Chronic) Cigarette smoker (Inactive) Family History Other Diabetes Heart disease Social History Preferred Language: Hungarian Communication Ability: Effective Design Lead Required: No Beliefs That Will Affect Care: None Current Living Situation: Spouse Other Information That Helps Us Care for You: Yes (HEARING ISSUES) Feels Safe at Home: Yes Safety Concerns: Feels Safe At This Time Smoking Status: Current every day smoker Tobacco Type: cigarettes and smokeless tobacco ; Cigarettes Per Day: 3-4 CIGARETTES PER WEEK, CHEWING TOBACCO 1.5 CANS/WEEK ; Do You Dip or Chew Tobacco: Yes ; Second Hand Exposure: Yes ; Tobacco Cessation Education Requested by Patient: No Hx Alcohol Use: Yes Alcohol type: beer Alcohol Intake Frequency: Rarely Hx Substance Use: No Review of Systems Review of Systems: All systems reviewed & are unremarkable except as noted in HPI & below Physical Exam Constitutional: WD/WN, vitals as above comfortable; no acute distress Eyes: PERRL, conjunctivae normal, anicteric sclerae ENMT: external ear and nose normal, oropharynx normal Neck: trachea midline, no thyromegaly neck nontender Respiratory: normal respiratory effort, lungs clear to auscultation normal percussion; does not use accessory muscles Cardiovascular: Rate/Rhythm: regular rate and regular rhythm Heart Sounds: normal S1 and normal S2; no gallop, no murmur and no cardiac rub Vessels: normal peripheral pulses; no JVD Gastrointestinal (Abdomen): normal bowel sounds, soft, nontender, no hepatosplenomegaly Musculoskeletal: no cyanosis or clubbing, extremities motor strength 5/5 Head/Neck/Chest: normocephalic, head atraumatic and neck supple Spine: thoracic spine normal to inspection and lumbar spine normal to inspection; no cervical spinal tenderness Skin: no rashes, warm and dry normal turgor; no lesions Neurologic: patellar DTR's 2+ bilat, sensation intact no focal motor deficits Psychiatric: A+Ox3, euthymic affect Orientation: cooperative Lymphatic: no cervical or axillary lymphadenopathy no inguinal lymphadenopa thy Results & Data Vital Signs (Past 12 Hours) Vital Signs Temp Pulse Resp BP Pulse Ox 04/23/19 15:18 36.3 C L 90 18 106/65 93 04/23/19 13:55 36.8 C 04/23/19 07:12 38.4 C H 85 18 136/82 93 Laboratory Results Short CBC 04/23/19 Range/Units 12:53 WBC 6.18 (4.8-10.8) K/uL Hgb 12.4 L (14.0-18.0) g/dL Hct 34.5 L (42-52) % Plt Count 101 L (130-400) K/uL Diagnostic Findings Microbiology 04/21/19 10:34 Blood Aerobic Blood Culture - Preliminary No growth in Aerobic bottle after 48 hours. 04/21/19 10:34 Blood Anaerobic Blood Culture - Preliminary No growth in Anaerobic bottle after 48 hours. 04/21/19 10:34 Blood Aerobic Blood Culture - Preliminary No growth in Aerobic bottle after 48 hours. 04/21/19 10:34 Blood Anaerobic Blood Culture - Preliminary No growth in Anaerobic bottle after 48 hours. 04/21/19 10:38 Throat Group A Streptococcus Rapid Screen - Final Specimen negative for Group A Beta Strep by rapid method. Culture report to follow. 04/21/19 10:38 Throat Group A Beta-Hemolytic Strep Cult - Final No beta strep isolated. CT head/brain wo con CLINICAL HISTORY: 58 years-old Male with intractable headache. Acute headache TECHNIQUE: Multiple axial CT images of the head were obtained without contrast. A dose lowering technique was utilized adhering to the principles of ALARA. CT DOSE: 729.19 mGycm COMPARISON: None. FINDINGS: No acute intracranial hemorrhage, midline shift, intracranial mass, hydrocephalus, territorial ischemia or abnormal extra-axial collection. Minimal patchy white matter hypodensity suggest probable chronic microvascular ischemic disease. The calvarium is intact. Mild mucosal thickening of the maxillary and ethmoid sinuses. Soft tissues and orbits are unremarkable. IMPRESSION: No acute intracranial abnormality. The above report was generated using voice recognition software. It may contain grammatical, syntax or spelling errors. Electronically signed by: Nathaniel Ferrell M.D. PG Care Time/CCT Total # of Minutes Spent Total Time Spent with Patient: Total time spent is greater than 50% in coordination of care (as documented) at patient's floor/unit and/or counseling patient: (1) Fever Fever type: unspecified Qualified Code(s): R50.9 - Fever, unspecified
--- NOTE | 2019-04-23 16:27 | Pharmacy Report ---
Pharmacy Abx Initial Consult - Date of Service April 23, 2019 - Pharmacy Dosing Scope Date of Consult: 04/23/19 Consultation requested by: Dr. Esquivel Pharmacy is consulted to initiate Vancomycin IV dosing therapy, order appropriate labs and adjust drug dose/frequency. - Subjective The patient is a 58 year old M admitted on 04/21/19 09:35. - Objective Height: 5 ft 11 in Weight: 90.6 kg Vital Signs (Past 12hrs): Vital Signs Temp Pulse Resp BP Pulse Ox 04/23/19 15:18 36.3 C L 90 18 106/65 93 04/23/19 13:55 36.8 C 04/23/19 07:12 38.4 C H 85 18 136/82 93 Lab Results (24hrs): Laboratory Tests (24 Hours) 04/23/19 04/22/19 12:53 18:19 WBC 6.18 Neut # (Auto) 4.75 Procalcitonin 0.30 Micro Results: 04/21/19 10:38 Group A Streptococcus Rapid Screen - Final Throat Specimen negative for Group A Beta Strep by rapid method. Culture report to follow. Group A Beta-Hemolytic Strep Cult - Final No beta strep isolated. 04/23/19 09:15 Escherichia coli Shiga Toxins Test - Pending Stool Stool Culture - Pending - Assessment & Plan Assessment 58 year old M presenting with intractable headache and fever. Lumbar puncture cannot be done because patient is on Eliquis. Treating him empirically with Vanc and meningitic dose of Rocephin (2gm IV Q12) to see if he improves Plan Vancomycin for Empiric treatment x 48 hours Vancomycin IV * Estimated PK Parameters: Vd 0.7 L/kg, Ruben 0.077 hr-1, t1/2 9 hr * Loading dose: 2250 mg (25 mg/kg) * Maintenance dose: 1250 mg IV (13.7 mg/kg) every 12 hours * Trough/Random level will be ordered if therapy extends beyond 48 hours Pharmacy will continue to follow and will adjust dose/frequency as necessary. Thank you.
[2019-04-24] MEDS: cefTRIAXone SODIUM 2,000 MG in DEXTROSE 5% 50 ML IV SCH ×2 (01:40→13:22)
[2019-04-24] MEDS ORDERED: VANCOMYCIN HCL 1,250 MG in SODIUM CHLORIDE 0.9% 250 ML IV SCH (02:00)
[2019-04-24] MEDS: SODIUM CHLORIDE 0.9% 1000ML 1,000 ML IV SCH ×2 (03:45→11:38)
[2019-04-24] MEDS: ACETAMINOPHEN 1,000 MG/100 ML VIAL IV SCH ×2 (03:46→11:57)
[2019-04-24 06:49] LABS: Est GFR (African American) 110.8; Est GFR (Non-African American) 95.6
[2019-04-24] MEDS: METOPROLOL TARTRATE 25 MG TAB PO SCH ×2 (09:28→20:16)
[2019-04-24] MEDS: APIXABAN 5 MG TABLET PO SCH ×2 (09:28→20:15)
[2019-04-24] MEDS: DOXYCYCLINE HYCLATE 100 MG in DEXTROSE 5% 100 ML IV SCH (09:30)
[2019-04-24] MEDS: VANCOMYCIN HCL 1,250 MG in SODIUM CHLORIDE 0.9% 250 ML IV SCH ×2 (11:51→21:23)
[2019-04-24] MEDS ORDERED: ACETAMINOPHEN 325 MG TAB PO PRN (12:50)
--- NOTE | 2019-04-24 14:48 | Infectious Disease Progress Nt ---
Date of Service April 24, 2019 Assessment & Plan (1) Fever: 58-year-old male with fever and headache, no other localizing findings, only other significant laboratory abnormality is worsening thrombocytopenia. Certainly must be concerned about possibility of Anaplasma infection, and expect him to respond quickly to doxycycline if this were the diagnosis. Patient also could possibly have aseptic meningitis, but doubt bacterial meningitis. We will continue IV antibiotics today, and will consider transition to oral doxycycline tomorrow if continues to improve and blood cultures remain negative.. Subjective Patient seen in follow-up for unexplained fever. Feeling better today, headache almost gone. No neck stiffness. No abdominal or urinary complaints. Blood cultures remain negative. Review of Systems Review of Systems: All systems reviewed & are unremarkable except as noted in HPI & below Physical Exam Constitutional: WD/WN, vitals as above comfortable; no acute distress Eyes: PERRL, conjunctivae normal, anicteric sclerae ENMT: external ear and nose normal, oropharynx normal Neck: trachea midline, no thyromegaly neck nontender Respiratory: normal respiratory effort, lungs clear to auscultation normal percussion; does not use accessory muscles Cardiovascular: Rate/Rhythm: regular rate and regular rhythm Heart Sounds: normal S1 and normal S2; no gallop, no murmur and no cardiac rub Vessels: normal peripheral pulses; no JVD Gastrointestinal (Abdomen): normal bowel sounds, soft, nontender, no hepatosplenomegaly Musculoskeletal: no cyanosis or clubbing, extremities motor strength 5/5 Head/Neck/Chest: normocephalic, head atraumatic and neck supple Spine: thoracic spine normal to inspection and lumbar spine normal to inspection; no cervical spinal tenderness Skin: no rashes, warm and dry normal turgor; no lesions Neurologic: patellar DTR's 2+ bilat, sensation intact no focal motor deficits Psychiatric: A+Ox3, euthymic affect Orientation: cooperative Lymphatic: no cervical or axillary lymphadenopathy no inguinal lymphadenopathy Results & Data Vital Signs (Past 12 Hours) Vital Signs Temp Pulse Resp BP Pulse Ox 04/24/19 08:04 36.3 C L 62 20 124/80 94 Laboratory Results [facility] 04/24/19 05:58 Creatinine 0.83 Diagnostic Findings Microbiology 04/23/19 09:15 Stool Escherichia coli Shiga Toxins Test - Preliminary 04/23/19 09:15 Stool Stool Culture - Preliminary No Salmonella isolated to date, No Shigella isolated to date, No Campylobacter jejuni isolated to date. 04/21/19 10:34 Blood Aerobic Blood Culture - Preliminary No growth in Aerobic bottle after 48 hours. 04/21/19 10:34 Blood Anaerobic Blood Culture - Preliminary No growth in Anaerobic bottle after 48 hours. 04/21/19 10:34 Blood Aerobic Blood Culture - Preliminary No growth in Aerobic bottle after 48 hours. 04/21/19 10:34 Blood Anaerobic Blood Culture - Preliminary No growth in Anaerobic bottle after 48 hours. 04/21/19 10:38 Throat Group A Streptococcus Rapid Screen - Final Specimen negative for Group A Beta Strep by rapid method. Culture report to follow. 04/21/19 10:38 Throat Group A Beta-Hemolytic Strep Cult - Final No beta strep isolated. PG Care Time/CCT Total # of Minutes Spent Total Time Spent with Patient: Total time spent is greater than 50% in coordination of care (as documented) at patient's floor/unit and/or counseling patient: (1) Fever Fever type: unspecified Qualified Code(s): R50.9 - Fever, unspecified
[2019-04-24] MEDS: HYDROmorphone INJ 1 MG/ML SYRINGE IV PRN ×2 (15:56→20:12)
--- NOTE | 2019-04-24 18:16 | Hospitalist Progress Note ---
Date of Service April 24, 2019 Assessment & Plan (1) Headache: Stented with intractable headache, with intermittent fever, Localized throbbing headache the frontal and retro-orbital area, CT head noncontrast showed no acute issue Ordered for IV Tylenol scheduled for febrile illness Added IV Rocephin meningitic dose, IV vancomycin Patient is on Eliquis for presentation with paroxysmal A. fib Lumbar puncture cannot be done in the setting of active anticoagulation ID following (2) Fever: T-max 39.2(102.6 Fahrenheit) Continue to spike temperature, fever of unknown etiology -No leukocytosis. CXR and UA appear normal -Lyme negative/anaplasma serology pending Streptococcus throat swab negative Blood culture : No growth Chest x-ray: Normal study(no report of cough) Patient started on empiric antibiotic with IV doxycycline Monospot test: Negative Having intermittent diarrhea: Stool C. difficile negative Stool culture ordered report pending Added empiric antibiotic with IV Rocephin 2 g every 12 hour(meningitic dose)/IV vancomycin lumbar puncture -cannot be done as patient is on Eliquis ID evaluation appreciated (3) Atrial fibrillation with RVR: Resolved remains in sinus rhythm with rate controlled -Presented with new onset A Fib with RVR with HR initially in 130s-140s - possible precipitated by acute infection ? -Evaluated by Dr. Patel in the ED. Started on Eliquis 5mg BID and Lopressor 25mg QID -Remains in sinus with rate controlled since -[id number] score 0 but will need anticoagulate in the short term due to unknown duration of of A Fib -2D echo : Normal ejection fraction, no valvular pathology, no wall motion abnormality Serial troponins been negative Cardiology evaluation Stable cardiac dodge, patient will continue with beta-adonay, Eliquis (lumbar puncture contraindicated/high risk for epidural hematoma) outpatient follow-up with cardiology-for possible ZIO Patch Cardiac stress test for ischemic work-up as outpatient (4) Prediabetes: Diet controlled Hemoglobin A1c 6.0 (5) HLD (hyperlipidemia): Diet controlled -Fasting lipid panel LDL 97 (6) Tobacco use disorder: Has decreased cigarette use to 3 daily but still using smokeless tobacco daily (chews tobacco) -Recommended cessation DVT Ppx: On Eliquis Code status: FULL PCP: Destiny Mcghee Dispo: Patient will need continued hospital stay for ongoing febrile illness Expected to be discharged home when medically stable Family medicine follow-up with Dr. Ashok Gordon at [facility] Cardiology follow-up with Dr. Patel at [facility] cardiology clinic Subjective . Feeling better today, headache almost gone. No neck stiffness. No abdominal or urinary complaints. Blood cultures remain negative. Physical Exam Constitutional: + acute distress (Indurated intractable headache) and + ill appearing Eyes: PERRL, conjunctivae normal, anicteric sclerae ENMT: external ear and nose normal, oropharynx normal Neck: trachea midline, no thyromegaly Respiratory: normal respiratory effort, lungs clear to auscultation Cardiovascular: RRR, no murmur, no edema Gastrointestinal (Abdomen): Inspection/Auscultation: + abdomen distended Percussion/Palpation: abdomen soft; abdomen nontender Musculoskeletal: no cyanosis or clubbing, extremities motor strength 5/5 Skin: no rashes, warm and dry Neurologic: PERRL, EOMI, accommodation nl, no face palsy, no dysarthria Psychiatric: A+Ox3, euthymic affect Results & Data Vital Signs (Past 12 Hours) Vital Signs Temp Pulse Pulse Resp BP Pulse Ox 04/24/19 16:25 38.0 C H 97 H 20 128/75 92 04/24/19 15:59 101 H 20 94 04/24/19 15:13 38.2 C H 93 H 20 136/81 95 04/24/19 08:04 36.3 C L 62 20 124/80 94 (1) Fever Fever type: unspecified Qualified Code(s): R50.9 - Fever, unspecified (2) Headache Headache chronicity pattern: acute headache Intractability: intractable (3) HLD (hyperlipidemia) Hyperlipidemia type: unspecified Qualified Code(s): E78.5 - Hyperlipidemia, unspecified
[2019-04-24] MEDS: KETOROLAC 30 MG/ML VIAL IV PRN (19:11)
[2019-04-24] MEDS: DOXYCYCLINE HYCLATE 100 MG CAP PO SCH (20:26)
[2019-04-25] MEDS: HYDROmorphone INJ 1 MG/ML SYRINGE IV PRN ×2 (00:56→15:19)
[2019-04-25] MEDS: cefTRIAXone SODIUM 2,000 MG in DEXTROSE 5% 50 ML IV SCH ×2 (00:56→19:57)
[2019-04-25] MEDS: ACETAMINOPHEN 1,000 MG/100 ML VIAL IV PRN ×2 (03:48→14:45)
[2019-04-25] MEDS ORDERED: VANCOMYCIN TROUGH ONE (07:30)
[2019-04-25] MEDS: VANCOMYCIN HCL 1,250 MG in SODIUM CHLORIDE 0.9% 250 ML IV SCH (08:19)
[2019-04-25 08:26] LABS: Creatinine Clr Calc Pharmacy 87.8 ml/min; Est GFR (African American) 91.1; Est GFR (Non-African American) 78.6
[2019-04-25] MEDS: KETOROLAC 30 MG/ML VIAL IV PRN (08:26)
[2019-04-25] MEDS: DOXYCYCLINE HYCLATE 100 MG CAP PO SCH ×2 (08:32→20:58)
[2019-04-25] MEDS: APIXABAN 5 MG TABLET PO SCH (08:32)
[2019-04-25] MEDS: METOPROLOL TARTRATE 25 MG TAB PO SCH ×2 (08:32→20:58)
[2019-04-25 13:25] LABS: EBV Nuclear Ag Antibody >600.00 U/ML; EBV Virus Capsid Ag IgG Ab >750.00 U/ML
[2019-04-25] MEDS ORDERED: METOPROLOL TARTRATE 25 MG TAB PO STA (15:34)
[2019-04-25] MEDS ORDERED: DEXAMETHASONE SOD PHOSPHATE 4 MG in SYRINGE 0 ML IV STA (15:56)
[2019-04-25] MEDS ORDERED: LACTATED RINGER'S 500 ML IV ONE (16:28)
[2019-04-25] MEDS ORDERED: METOPROLOL TARTRATE 1 MG/ML VIAL IV PRN (16:29)
[2019-04-25] MEDS ORDERED: ACETAMINOPHEN 1,000 MG/100 ML VIAL IV SCH (17:00)
[2019-04-25] MEDS ORDERED: KETOROLAC 30 MG/ML VIAL IV ONE (17:00)
[2019-04-25] MEDS: ACYCLOVIR SOD 900 MG in DEXTROSE 5% 250 ML IV SCH (17:16)
[2019-04-25] MEDS: LACTATED RINGER'S 1,000 ML IV SCH ×2 (17:17→23:31)
[2019-04-25 17:26] LABS: Hematocrit (blood only) 34.8 % (42-52); Hemoglobin 12.3 g/dL (14.0-18.0); Mean Corpuscular Hemoglobin 31.9 pg (25-34); Mean Corpuscular Hgb Conc 35.3 g/dL (32-36); Mean Corpuscular Volume 90.2 fL (80-100); Mean Platelet Volume 11.2 fL (7.4-10.4); Platelet Count 165 K/uL (130-400); RDW Coefficient of Variation 13.6 % (11.5-14.5); RDW Standard Deviation 45.3 fL (36.4-46.3); Red Blood Count 3.86 M/uL (4.7-6.1); White Blood Count 8.29 K/uL (4.8-10.8)
[2019-04-25 17:29] LABS: INR 1.4 (0.9-1.1)
[2019-04-25 17:37] LABS: Albumin Level 2.6 gm/dl (3.4-5.0); BUN Creatinine Ratio 13.4 (10-20); Creatinine Clr Calc Pharmacy 98.3 ml/min; Est GFR (African American) 104.4; Est GFR (Non-African American) 90.1; Potassium 3.4 mmol/L (3.5-5.1)
[2019-04-25 17:40] LABS: Albumin Globulin Ratio 0.8 (0.9-2); Bilirubin Direct 0.2 mg/dl (0-0.2); Bilirubin,Total 0.7 mg/dl (0.2-1); Globulin 3.4 gm/dl (2.5-4.0)
[2019-04-25] MEDS ORDERED: Nursing to Pharmacy Communication ONE (17:46)
[2019-04-25 17:54] LABS: Basophils # (auto) 0.02 K/uL (0-0.2); Basophils % (auto) 0.2 %; Eosinophils # (auto) 0.01 K/uL (0-0.5); Eosinophils % (auto) 0.1 %; Immature Granulocytes # (auto) 0.01 K/uL (0.00-0.02); Immature Granulocytes % (auto) 0.1 %; Lymphocytes # (auto) 0.79 K/uL (1.2-3.4); Lymphocytes % (auto) 9.5 %; Monocytes # (auto) 0.74 K/uL (0.11-0.59); Monocytes % (auto) 8.9 %; Neutrophils # (auto) 6.72 K/uL (1.4-6.5); Neutrophils % (auto) 81.2 %
[2019-04-25] MEDS ORDERED: POTASSIUM CHLORIDE 20 MEQ TABCR PO STA (18:05)
[2019-04-25] MEDS ORDERED: VANCOMYCIN CONSULT ACTIVE PRN (18:34)
--- NOTE | 2019-04-25 18:34 | Hospitalist Progress Note ---
Date of Service April 25, 2019 Assessment & Plan (1) Viral meningitis, unspecified: Patient continues to spike fever, intractable headache, associated neck pain Clinically suggestive of meningitis possible viral origin Discussed with Dr. Holcomb Treated with meningitic dose of IV Rocephin, vancomycin Added acyclovir Patient will need a lumbar puncture for confirmatory diagnosis Order to DC Eliquis Will need to wait in next 24-48 hours, to safely schedule fluoroscopic guided lumbar puncture by radiology Continue supportive care with IV antibiotic, IV fluid, added antiviral IV Tylenol for fevers spike Headache improved after giving IV Decadron Continue IV Decadron 4 mg every 8 hours scheduled for next 24-48-hour (2) Headache: Possible secondary to meningitis, Continues to have fever with intractable headache Localized throbbing headache the frontal and retro-orbital area, CT head noncontrast showed no acute issue Ordered for IV Tylenol scheduled for febrile illness Added IV Rocephin meningitic dose, IV vancomycin, added IV acyclovir Patient is on Eliquis for presentation with paroxysmal A. fib Order to DC anticoagulation Ordered IV Decadron, noted to have brief relief with headache Need to schedule lumbar puncture after safe interval/off Eliquis (3) Atrial fibrillation with RVR: Left AV RVR in the setting of acute illness, fever spike intractable neck and head pain possible meningitis Transferred to PCU Increase Lopressor to 25 mg p.o. 4 times daily PRN IV Lopressor for heart rate more than 100 Hold Eliquis for planned lumbar puncture for diagnosis of meningitis -Presented with new onset A Fib with RVR with HR initially in 130s-140s - possible precipitated by acute infection ? -Evaluated by Dr. Patel in the ED. Started on Eliquis 5mg BID and Lopressor 25mg QID -Remains in sinus with rate controlled since -[id number] score 0 but will need anticoagulate in the short term due to unknown duration of of A Fib -2D echo : Normal ejection fraction, no valvular pathology, no wall motion abnormality Serial troponins been negative Cardiology evaluation Patient will need outpatient follow-up with cardiology-for possible ZIO Patch Cardiac stress test for ischemic work-up as outpatient (4) Fever: Continues to have fever spike, possible viral meningitis? T-max 39.2(102.6 Fahrenheit) Continue to spike temperature, fever of unknown etiology -No leukocytosis. CXR and UA appear normal -Lyme negative/anaplasma serology pending Streptococcus throat swab negative Blood culture : No growth Chest x-ray: Normal study(no report of cough) Patient started on empiric antibiotic with IV doxycycline Monospot test: Negative EBV: Antigen positive Having intermittent diarrhea: Stool C. difficile negative Stool culture negative Added empiric antibiotic with IV Rocephin 2 g every 12 hour(meningitic dose)/IV vancomycin Eliquis discontinued, need to have lumbar puncture for confirmatory diagnosis ID evaluation appreciated (5) Prediabetes: Diet controlled Hemoglobin A1c 6.0 (6) HLD (hyperlipidemia): Diet controlled -Fasting lipid panel LDL 97 (7) Tobacco use disorder: Has decreased cigarette use to 3 daily but still using smokeless tobacco daily (chews tobacco) -Recommended cessation DVT Ppx: On Eliquis Code status: FULL PCP: Destiny Mcghee Dispo: Transferred to PCU today for rapid A. fib RVR Patient will need continued hospital stay for ongoing febrile illness Expected to be discharged home when medically stable Family medicine follow-up with Dr. Ashok Gordon at [facility] Cardiology follow-up with Dr. Patel at [facility] cardiology clinic Subjective To need to spike temperature, T-max went up to 38 Associated with severe headache neck pain Symptom not resolved with IV Tylenol, given IV Toradol Patient went into rapid A. fib RVR, Transferred down to telemetry Physical Exam Constitutional: + acute distress (Intractable headache, fever) and + ill appearing Eyes: PERRL, conjunctivae normal, anicteric sclerae ENMT: external ear and nose normal, oropharynx normal Neck: trachea midline, no thyromegaly Respiratory: normal respiratory effort, lungs clear to auscultation Cardiovascular: RRR, no murmur, no edema Gastrointestinal (Abdomen): Percussion/Palpation: abdomen soft; abdomen nontender Musculoskeletal: no cyanosis or clubbing, extremities motor strength 5/5 Skin: no rashes, warm and dry Neurologic: PERRL, EOMI, accommodation nl, no face palsy, no dysarthria Psychiatric: A+Ox3, euthymic affect Results & Data Vital Signs (Past 12 Hours) Vital Signs Temp Pulse Pulse Pulse Resp BP BP 04/25/19 17:55 156 H 102/61 04/25/19 16:39 120 H 04/25/19 16:33 37.0 C 123 H 18 04/25/19 15:23 37.0 C 118 H 18 04/25/19 14:40 39.3 C H 04/25/19 07:40 37.4 C 89 18 100/65 BP Pulse Ox 04/25/19 17:55 04/25/19 16:39 04/25/19 16:33 118/74 93 04/25/19 15:23 98/74 L 90 04/25/19 14:40 04/25/19 07:40 91 (1) Headache Headache chronicity pattern: acute headache Intractability: intractable Headache type: unspecified Qualified Code(s): R51 - Headache (2) Fever Fever type: unspecified Qualified Code(s): R50.9 - Fever, unspecified (3) HLD (hyperlipidemia) Hyperlipidemia type: unspecified Qualified Code(s): E78.5 - Hyperlipidemia, unspecified
[2019-04-25] MEDS ORDERED: VANCOMYCIN HCL 1,000 MG in SODIUM CHLORIDE 0.9% 250 ML IV SCH (18:45)
[2019-04-25] MEDS: VANCOMYCIN HCL 1,500 MG in SODIUM CHLORIDE 0.9% 500 ML IV SCH (20:05)
[2019-04-25] MEDS: ACETAMINOPHEN 1,000 MG/100 ML VIAL IV SCH (20:52)
[2019-04-25] MEDS: DEXAMETHASONE SOD PHOSPHATE 4 MG in SYRINGE 0 ML IV SCH (21:35)
--- NOTE | 2019-04-25 21:46 | Pharmacy Report ---
Pharmacy Abx Dose Short Note - Date of Service April 25, 2019 - Assessment & Plan Laboratory Tests 04/25/19 07:37 Vancomycin Trough 8.6 Assessment 58 year old M receiving Vancomycin and Rocephin for treatment of possible meningitis Vancomycin was discontinued this morning after trough was collected, but patient continues to spike fevers, so Vanco and Rocephin were restarted. Plan Vancomycin * Trough level of 8.6 mcg/mL is subtherapeutic * Change to 1500 mg IV every 10 hours * Goal trough level for meningitis: ~20 mcg/mL * Trough level ordered for: 04/27/19 at 0130 Pharmacy will continue to follow and will adjust dose/frequency as necessary. Thank you.
[2019-04-26] MEDS: ACYCLOVIR SOD 900 MG in DEXTROSE 5% 250 ML IV SCH ×3 (02:25→17:14)
[2019-04-26] MEDS: ACETAMINOPHEN 1,000 MG/100 ML VIAL IV SCH ×2 (05:02→14:27)
[2019-04-26] MEDS: DEXAMETHASONE SOD PHOSPHATE 4 MG in SYRINGE 0 ML IV SCH ×3 (05:45→20:56)
[2019-04-26] MEDS: VANCOMYCIN HCL 1,500 MG in SODIUM CHLORIDE 0.9% 500 ML IV SCH ×2 (05:45→16:05)
[2019-04-26 07:05] LABS: Basophils # (auto) 0.01 K/uL (0-0.2); Basophils % (auto) 0.1 %; Hematocrit (blood only) 35.2 % (42-52); Hemoglobin 12.7 g/dL (14.0-18.0); Immature Granulocytes # (auto) 0.02 K/uL (0.00-0.02); Immature Granulocytes % (auto) 0.3 %; Lymphocytes # (auto) 0.56 K/uL (1.2-3.4); Lymphocytes % (auto) 7.7 %; Mean Corpuscular Hemoglobin 32.2 pg (25-34); Mean Corpuscular Hgb Conc 36.1 g/dL (32-36); Mean Corpuscular Volume 89.3 fL (80-100); Mean Platelet Volume 10.9 fL (7.4-10.4); Monocytes # (auto) 0.37 K/uL (0.11-0.59); Monocytes % (auto) 5.1 %; Neutrophils # (auto) 6.35 K/uL (1.4-6.5); Neutrophils % (auto) 86.8 %; Platelet Count 173 K/uL (130-400); RDW Coefficient of Variation 13.5 % (11.5-14.5); RDW Standard Deviation 44.5 fL (36.4-46.3); Red Blood Count 3.94 M/uL (4.7-6.1); White Blood Count 7.31 K/uL (4.8-10.8)
[2019-04-26 07:41] LABS: Alanine Aminotransferase 93 U/L (12-78); Albumin Level 2.3 gm/dl (3.4-5.0); Aspartate Aminotransferase 19 U/L (15-37); BUN Creatinine Ratio 14.9 (10-20); Blood Urea Nitrogen 12 mg/dl (7-18); Carbon Dioxide 26 mmol/L (21-32); Chloride 104 mmol/L (98-107); Creatinine Clr Calc Pharmacy 120.1 ml/min; Est GFR (African American) 113.7; Est GFR (Non-African American) 98.1; Glucose 179 mg/dl (70-99); Potassium 3.8 mmol/L (3.5-5.1); Sodium 136 mmol/L (136-145)
[2019-04-26 07:43] LABS: Albumin Globulin Ratio 0.7 (0.9-2); Alkaline Phosphatase 123 U/L (45-117); Bilirubin,Total 0.6 mg/dl (0.2-1); Globulin 3.4 gm/dl (2.5-4.0); Total Protein 5.7 gm/dl (6.4-8.2)
[2019-04-26 08:01] LABS: Bilirubin Direct < 0.1 mg/dl (0-0.2)
[2019-04-26] MEDS: METOPROLOL TARTRATE 25 MG TAB PO SCH ×4 (08:10→20:55)
[2019-04-26] MEDS: DOXYCYCLINE HYCLATE 100 MG CAP PO SCH ×2 (08:11→20:56)
[2019-04-26] MEDS: cefTRIAXone SODIUM 2,000 MG in DEXTROSE 5% 50 ML IV SCH ×2 (08:25→20:55)
[2019-04-26] MEDS: LACTATED RINGER'S 1,000 ML IV SCH ×2 (14:28→14:29)
--- NOTE | 2019-04-26 15:52 | Hospitalist Progress Note ---
Date of Service April 26, 2019 Assessment & Plan (1) Viral meningitis, unspecified: Continuous fever spike, intractable headache and associated neck pain up until yesterday. After discussion with ID testing consultant, Dr. Holcomb, decision was made to add acyclovir. Since then patient has been afebrile and denying any chills, clinically improved overall. Still has some headache and neck pain but this is improving. Eliquis is being held until tomorrow when a lumbar puncture will be performed. Continue IV Rocephin and vancomycin empirically pending culture results and LP studies. (2) Atrial fibrillation with RVR: New onset A. fib with RVR on presentation 1 week ago, likely associated with acute illness. He continues on Lopressor for rate control and Eliquis is held in preparation for lumbar puncture tomorrow. Cardiology has seen him this admission, and will need to follow him in the clinic. A 2D echo was performed revealing a normal ejection fraction without valvular pathology or wall motion abnormalities. Serial troponins were negative. (3) Tobacco use disorder: Has decreased cigarette use to 3 daily but still using smokeless tobacco daily (chews tobacco) -Recommended cessation (4) DVT prophylaxis: DVT Ppx: Eliquis held/SCDs Code status: FULL PCP: Destiny Mcghee Dispo: Transfer to PCU yesterday for rapid atrial fibrillation with RVR. Hemod ynamically stable today and clinically improved after addition of acyclovir. Continue to monitor on PCU for 1 more day. Tatiana Sampson DO [facility] Hospitalist Subjective 58-year-old man with meningitis symptoms x1 week and new onset A. fib. He is currently in sinus rhythm and denies any chest pain, shortness of breath or palpitations. His Eliquis has been held for 24 hours, and will need 48 prior to any lumbar puncture which is planned for tomorrow morning. He is concerned his fever will come back on as his fever has been consistent for the past week. He feels his headache is present but improving and same with neck stiffness. He is now finally able to tolerate food today and reports one episode of loose stool daily. He denies any abdominal pain he denies any recent illnesses including no congestion, sinus issues and no recent sick contacts. He denies any recent travel. 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 He denies any history of confusion with this syndrome. He denies any history of tick bites or other insect bites. A full skin exam was performed today without evidence of any lesions or rashes. Review of Systems Review of Systems: All systems reviewed & are unremarkable except as noted in HPI & below Physical Exam Physical Exam: CONSTITUTIONAL: WNWD, vitals as above, generally well- appearing EYES: EOMI bilaterally, PERRL, normal conjunctivae, no scleral icterus ENT: oropharynx clear, no maxillary or ethmoid sinus tenderness NECK: trachea midline, no lymphadenopathy RESPIRATORY: clear to auscultation bilaterally, no crackles, rales or wheezes, normal respiratory effort CARDIOVASCULAR: regular rate and rhythm, S1 and 2 heard without murmurs, gallops or rubs, no JVD, no peripheral edema GASTROINTESTINAL: normal bowel sounds, soft, nontender, nondistended MUSCULOSKELETAL: strength 5/5 throughout, head is normocephalic and atraumatic, ambulatory SKIN: warm and dry, no rashes, (full exam performed) NEUROLOGIC: PERRL, EOMI, no facial palsy, no dysarthria. CN 2-12 grossly intact, no sensory deficit, normal cognition, normal speech, no tremor. PSYCHIATRIC: alert cooperative and oriented to person, place and time. Results & Data Vital Signs (Past 12 Hours) Vital Signs Temp Pulse Pulse Resp BP BP Pulse Ox 04/26/19 15:39 36.8 C 84 19 119/76 93 04/26/19 11:30 36.4 C L 84 16 114/71 93 04/26/19 07:03 36.6 C 86 16 111/74 92 Laboratory Results Short CBC 04/25/19 04/26/19 Range/Units 17:06 06:44 WBC 8.29 7.31 (4.8-10.8) K/uL Hgb 12.3 L 12.7 L (14.0-18.0) g/dL Hct 34.8 L 35.2 L (42-52) % Plt Count 165 173 (130-400) K/uL BMP 04/25/19 04/26/19 17:06 06:44 Sodium 132 L 136 Potassium 3.4 L 3.8 Chloride 100 104 Carbon Dioxide 23 26 BUN 12 12 Creatinine 0.92 0.78 Glucose 121 H 179 H Calcium 8.0 L 8.0 L Liver Function 04/25/19 04/26/19 Range/Units 17:06 06:44 Total Bilirubin 0.7 0.6 (0.2-1) mg/dl Direct Bilirubin 0.2 < 0.1 D (0-0.2) mg/dl AST 22 19 (15-37) U/L ALT 108 H 93 H (12-78) U/L Alkaline Phosphatase 137 H 123 H (45-117) U/L Albumin 2.6 L 2.3 L (3.4-5.0) gm/dl Medications Administered Current Inpatient Medications Acetaminophen (Tylenol) 650 mg PO Q4H PRN PRN Reason: Fever Stop: 05/24/19 12:49 Last Admin: 04/24/19 15:52 Dose: 650 mg Documented by: Al Hydrox/Mg Hydrox/Simethicone (Maalox) 15 ml PO Q4H PRN PRN Reason: Dyspepsia Stop: 05/21/19 12:16 Doxycycline Hyclate (Vibramycin) 100 mg PO BID [facility]; Protocol Stop: 05/01/19 20:59 Last Admin: 04/26/19 08:11 Dose: 100 mg Documented by: Hydromorphone HCl (Dilaudid) 1 mg IV Q4 PRN PRN Reason: Pain Stop: 05/07/19 12:44 Last Admin: 04/25/19 15:19 Dose: 1 mg Documented by: Promethazine HCl 12.5 mg/ (Sodium Chloride) 50.5 mls @ 202 mls/hr IV Q6H PRN PRN Reason: Nausea And Vomiting Stop: 05/23/19 12:53 Lactated Ringer's (Lr) 1,000 mls @ 150 mls/hr IV .Q6H40M SHASHI Stop: 05/25/19 16:29 Last Admin: 04/26/19 14:29 Dose: Not Given Documented by: Acyclovir Sodium 900 mg/ (Dextrose) 268 mls @ 250 mls/hr IV Q8H [facility]; Protocol Stop: 05/05/19 16:59 Last Infusion: 04/26/19 09:16 Dose: Infused Documented by: Acetaminophen (Ofirmev) 1,000 mg in 100 mls @ 400 mls/hr IV Q8H [facility] Stop: 05/25/19 20:59 Last Admin: 04/26/19 14:27 Dose: Not Given Documented by: Ceftriaxone Sodium 2,000 mg/ (Dextrose) 70 mls @ 100 mls/hr IV Q12H [facility]; Protocol Stop: 05/05/19 19:59 Last Infusion: 04/26/19 09:10 Dose: Infused Documented by: Dexamethasone Sodium Phosphate (4 mg/ Syringe) 1 mls @ 1 mls/min IV Q8 [facility] Stop: 05/25/19 21:59 Last Admin: 04/26/19 14:26 Dose: 1 mls/min Documented by: Vancomycin HCl 1,500 mg/ (Sodium Chloride) 530 mls @ 200 mls/hr IV Q10H [facility] Stop: 05/05/19 19:59 Last Infusion: 04/26/19 08:25 Dose: Infused Documented by: Ketorolac Tromethamine (Toradol) 30 mg IV Q6H PRN PRN Reason: Pain Stop: 04/27/19 19:59 Last Admin: 04/25/19 08:26 Dose: 30 mg Documented by: Lorazepam (Ativan) 1 mg PO HS PRN PRN Reason: sleep Stop: 05/23/19 12:53 Magnesium Hydroxide (Milk Of Magnesia) 30 ml PO Q12H PRN PRN Reason: Constipation Stop: 05/21/19 12:16 Last Admin: 04/21/19 18:05 Dose: 30 ml Documented by: Metoprolol Tartrate (Lopressor) 5 mg IV Q6 PRN PRN Reason: HR> 100 Stop: 05/25/19 17:59 Last Admin: 04/25/19 17:55 Dose: 5 mg Documented by: Metoprolol Tartrate (Lopressor) 25 mg PO QID [facility] Stop: 05/25/19 20:59 Last Admin: 04/26/19 13:15 Dose: 25 mg Documented by: Miscellaneous Information (Consult) 1 ea N/A UD PRN PRN Reason: Consult Stop: 05/25/19 18:33 Nitroglycerin (Nitrostat) 0.4 mg SL UD PRN PRN Reason: Chest Pain Stop: 05/21/19 12:16 Ondansetron HCl (Zofran) 4 mg IV Q6H PRN PRN Reason: Nausea Stop: 05/21/19 12:16 Last Admin: 04/25/19 08:38 Dose: 4 mg Documented by:
[2019-04-26] MEDS: KETOROLAC 30 MG/ML VIAL IV PRN (16:04)
[2019-04-27] MEDS: ACYCLOVIR SOD 900 MG in DEXTROSE 5% 250 ML IV SCH ×2 (00:08→07:56)
[2019-04-27] MEDS ORDERED: VANCOMYCIN TROUGH ONE (01:30)
[2019-04-27] MEDS: VANCOMYCIN HCL 1,500 MG in SODIUM CHLORIDE 0.9% 500 ML IV SCH ×2 (01:38→13:13)
[2019-04-27 01:50] LABS: Hematocrit (blood only) 34.4 % (42-52); Hemoglobin 12.6 g/dL (14.0-18.0); Immature Granulocytes # (auto) 0.04 K/uL (0.00-0.02); Immature Granulocytes % (auto) 0.4 %; Lymphocytes # (auto) 0.81 K/uL (1.2-3.4); Lymphocytes % (auto) 7.2 %; Mean Corpuscular Hemoglobin 32.5 pg (25-34); Mean Corpuscular Hgb Conc 36.6 g/dL (32-36); Mean Corpuscular Volume 88.7 fL (80-100); Monocytes # (auto) 0.44 K/uL (0.11-0.59); Monocytes % (auto) 3.9 %; Neutrophils # (auto) 9.96 K/uL (1.4-6.5); Neutrophils % (auto) 88.5 %; Platelet Count 241 K/uL (130-400); RDW Coefficient of Variation 13.5 % (11.5-14.5); RDW Standard Deviation 44.1 fL (36.4-46.3); Red Blood Count 3.88 M/uL (4.7-6.1); White Blood Count 11.25 K/uL (4.8-10.8)
[2019-04-27 02:08] LABS: Alanine Aminotransferase 79 U/L (12-78); Albumin Level 2.3 gm/dl (3.4-5.0); Aspartate Aminotransferase 19 U/L (15-37); BUN Creatinine Ratio 16.8 (10-20); Bilirubin Direct < 0.1 mg/dl (0-0.2); Blood Urea Nitrogen 14 mg/dl (7-18); Carbon Dioxide 24 mmol/L (21-32); Chloride 105 mmol/L (98-107); Creatinine Clr Calc Pharmacy 112.9 ml/min; Est GFR (African American) 110.8; Est GFR (Non-African American) 95.6; Glucose 212 mg/dl (70-99); Potassium 3.7 mmol/L (3.5-5.1); Sodium 137 mmol/L (136-145)
[2019-04-27 02:14] LABS: Albumin Globulin Ratio 0.7 (0.9-2); Alkaline Phosphatase 107 U/L (45-117); Bilirubin,Total 0.8 mg/dl (0.2-1); Globulin 3.4 gm/dl (2.5-4.0); Total Protein 5.7 gm/dl (6.4-8.2)
[2019-04-27] MEDS: KETOROLAC 30 MG/ML VIAL IV PRN (04:35)
[2019-04-27] MEDS: DEXAMETHASONE SOD PHOSPHATE 4 MG in SYRINGE 0 ML IV SCH ×2 (06:15→13:38)
[2019-04-27] MEDS: cefTRIAXone SODIUM 2,000 MG in DEXTROSE 5% 50 ML IV SCH (07:51)
[2019-04-27] MEDS: DOXYCYCLINE HYCLATE 100 MG CAP PO SCH ×2 (07:55→20:34)
[2019-04-27] MEDS: METOPROLOL TARTRATE 25 MG TAB PO SCH ×4 (07:55→20:34)
[2019-04-27] MEDS ORDERED: ACETAMINOPHEN 500 MG TAB PO PRN (12:13)
--- NOTE | 2019-04-27 12:13 | Fluoroscopy Report ---
FL lumbar puncture diagnostic CLINICAL HISTORY: 58 years-old Male with +fever, OROPEZA, neck stiffness x 1 week. Acute fever with heada jason PROCEDURE: The risks, benefits, and alternatives to the procedure is discussed with the patient who v oiced understanding. Written informed consent was obtained. The patient was placed prone on the fluor oscopy table. The lower back was prepped and draped in the usual sterile fashion. 1% lidocaine was us ed for local anesthesia. A 20-gauge spinal needle was inserted into the L2-L3 interlaminar space, and approximately 10 cc of clear colorless cerebrospinal fluid was removed. The patient tolerated the pr ocedure well. There were no immediate complications. The patient was then transported back to their r oom on the floor further observation. Fluoroscopy time: 0.4 minutes. One image was submitted for review. IMPRESSION: Fluoroscopic guided lumbar puncture with removal of approximately 10 cc of cerebrospinal fluid. There were no immediate complications. The above report was generated using voice recognition software. It may contain grammatical, syntax o r spelling errors. Electronically signed by: Nathaniel Ferrell M.D. 04/27/2019 12:12 PM
[2019-04-27 12:43] LABS: Total Protein CSF 51.6 mg/dl (15-45)
[2019-04-27 12:46] LABS: Appearance CSF Clear; CSF Count Tube # 3; CSF Xanthrochromic No xanthochromia; Color CSF Colorless; Red Blood Cell CSF (A) 0 /uL (0-); Red Blood Cell CSF (B) 1 /uL (0-); White Blood Cell CSF (A) 2 /uL (0-5); White Blood Cell CSF (B) 1 /uL (0-5)
--- NOTE | 2019-04-27 14:55 | Hospitalist Progress Note ---
Date of Service April 27, 2019 Assessment & Plan (1) Viral meningitis, unspecified: Continuous fever spike, intractable headache and associated neck pain up until yesterday. After discussion with ID datastage consultant, Dr. Holcomb, decision was made to add acyclovir. Decadron was also added. Since then patient has been afebrile and denying any chills, clinically improved overall. LP today. No evidence of bacterial meningitis. Vanc and Rocephin stopped. Doxy continued pending rickettsial panel results. Acyclovir coverted to PO. Discussed this plan with ID. (2) Atrial fibrillation with RVR: New onset A. fib with RVR on presentation 1 week ago, likely associated with acute illness. He continues on Lopressor for rate control and Eliquis will be restarted tomorrow post-procedure. (3) Tobacco use disorder: Has decreased cigarette use to 3 daily but still using smokeless tobacco daily (chews tobacco) -Recommended cessation (4) DVT prophylaxis: DVT Ppx: Eliquis held/SCDs Code status: FULL Transfer to Med/Surg. Tatiana Sampson DO [facility] Hospitalist Subjective Patient is feeling clinically well overall. Denies any fevers, headache, neck stiffness. Some persistent loose stools that occur only 1-2 times daily. LP was performed in radiology suite this morning and was uneventful. Lab work is not consistent with bacterial meningitis. No white blood cell count of concern with an elevated CSF glucose and an elevated total protein. Multiple studies are pending including West Nile virus PCR, enterovirus PCR, HSV PCR, Lyme PCR. Cryptococcal antigen test was negative. Gram stain was negative for organisms. Clinical picture is consistent with a possible viral meningitis. Antibiotics were DC'd with the exception of doxycycline, continued pending rickettsial panel results. Acyclovir IV was converted to Valtrex p.o. in preparation for discharge. Will monitor clinically overnight and plan to send home in a.m. Review of Systems Review of Systems: All systems reviewed & are unremarkable except as noted in HPI & below Physical Exam Physical Exam: CONSTITUTIONAL: WNWD, vitals as above, generally well- appearing EYES: normal conjunctivae, no scleral icterus ENT: MMM NECK: trachea midline, normal cervical ROM and no pain or stiffness with movement. RESPIRATORY: clear to auscultation bilaterally, no crackles, rales or wheezes, normal respiratory effort CARDIOVASCULAR: regular rate and rhythm, S1 and 2 heard without murmurs, gallops or rubs, no JVD, no peripheral edema GASTROINTESTINAL: soft, nontender, nondistended MUSCULOSKELETAL: strength 5/5 throughout, head is normocephalic and atraumatic, ambulatory SKIN: warm and dry, no rashes NEUROLOGIC: CN 2-12 grossly intact, no sensory deficit, normal cognition,no gross focal deficits. PSYCHIATRIC: alert cooperative and oriented to person, place and time. Results & Data Vital Signs (Past 12 Hours) Vital Signs Temp Pulse Pulse Resp BP BP Pulse Ox 04/27/19 13:37 36.4 C L 78 18 124/80 92 04/27/19 07:42 36.7 C 79 17 100/57 L 92 04/27/19 04:29 36.9 C 84 18 122/72 93 Laboratory Results Short CBC 04/27/19 Range/Units 01:35 WBC 11.25 H (4.8-10.8) K/uL Hgb 12.6 L (14.0-18.0) g/dL Hct 34.4 L (42-52) % Plt Count 241 (130-400) K/uL BMP 04/27/19 01:35 Sodium 137 Potassium 3.7 Chloride 105 Carbon Dioxide 24 BUN 14 Creatinine 0.83 Glucose 212 H Calcium 8.0 L Liver Function 04/27/19 Range/Units 01:35 Total Bilirubin 0.8 (0.2-1) mg/dl Direct Bilirubin < 0.1 (0-0.2) mg/dl AST 19 (15-37) U/L ALT 79 H (12-78) U/L Alkaline Phosphatase 107 (45-117) U/L Albumin 2.3 L (3.4-5.0) gm/dl Medications Administered Current Inpatient Medications Acetaminophen (Tylenol) 650 mg PO Q4H PRN PRN Reason: Fever Stop: 05/24/19 12:49 Last Admin: 04/24/19 15:52 Dose: 650 mg Documented by: Acetaminophen (Tylenol) 1,000 mg PO Q4H PRN PRN Reason: Mild Pain Stop: 04/29/19 12:12 Al Hydrox/Mg Hydrox/Simethicone (Maalox) 15 ml PO Q4H PRN PRN Reason: Dyspepsia Stop: 05/21/19 12:16 Doxycycline Hyclate (Vibramycin) 100 mg PO BID [facility]; Protocol Stop: 05/01/19 20:59 Last Admin: 04/27/19 07:55 Dose: 100 mg Documented by: Hydromorphone HCl (Dilaudid) 1 mg IV Q4 PRN PRN Reason: Pain Stop: 05/07/19 12:44 Last Admin: 04/25/19 15:19 Dose: 1 mg Documented by: Promethazine HCl 12.5 mg/ (Sodium Chloride) 50.5 mls @ 202 mls/hr IV Q6H PRN PRN Reason: Nausea And Vomiting Stop: 05/23/19 12:53 Acyclovir Sodium 900 mg/ (Dextrose) 268 mls @ 250 mls/hr IV Q8H [facility]; Protocol Stop: 05/05/19 16:59 Last Infusion: 04/27/19 09:01 Dose: Infused Documented by: Ceftriaxone Sodium 2,000 mg/ (Dextrose) 70 mls @ 100 mls/hr IV Q12H [facility]; Protocol Stop: 05/05/19 19:59 Last Infusion: 04/27/19 08:33 Dose: Infused Documented by: Dexamethasone Sodium Phosphate (4 mg/ Syringe) 1 mls @ 1 mls/min IV Q8 [facility] Stop: 05/25/19 21:59 Last Admin: 04/27/19 13:38 Dose: 1 mls/min Documented by: Vancomycin HCl 1,500 mg/ (Sodium Chloride) 530 mls @ 200 mls/hr IV Q10H [facility] Stop: 05/05/19 19:59 Last Admin: 04/27/19 13:13 Dose: 200 mls/hr Documented by: Ketorolac Tromethamine (Toradol) 30 mg IV Q6H PRN PRN Reason: Pain Stop: 04/27/19 19:59 Last Admin: 04/27/19 04:35 Dose: 30 mg Documented by: Lorazepam (Ativan) 1 mg PO HS PRN PRN Reason: sleep Stop: 05/23/19 12:53 Magnesium Hydroxide (Milk Of Magnesia) 30 ml PO Q12H PRN PRN Reason: Constipation Stop: 05/21/19 12:16 Last Admin: 04/21/19 18:05 Dose: 30 ml Documented by: Metoprolol Tartrate (Lopressor) 5 mg IV Q6 PRN PRN Reason: HR> 100 Stop: 05/25/19 17:59 Last Admin: 04/25/19 17:55 Dose: 5 mg Documented by: Metoprolol Tartrate (Lopressor) 25 mg PO QID [facility] Stop: 05/25/19 20:59 Last Admin: 04/27/19 13:38 Dose: 25 mg Documented by: Miscellaneous Information (Consult) 1 ea N/A UD PRN PRN Reason: Consult Stop: 05/25/19 18:33 Nitroglycerin (Nitrostat) 0.4 mg SL UD PRN PRN Reason: Chest Pain Stop: 05/21/19 12:16 Ondansetron HCl (Zofran) 4 mg IV Q6H PRN PRN Reason: Nausea Stop: 05/21/19 12:16 Last Admin: 04/25/19 08:38 Dose: 4 mg Documented by:
[2019-04-27] MEDS: VALACYCLOVIR HCL 500 MG TABLET PO SCH (18:11)
--- NOTE | 2019-04-27 19:06 | Infectious Disease Progress Nt ---
Date of Service April 27, 2019 Assessment & Plan (1) Fever: Patient with febrile illness with headaches and thrombocytopenia, now improving, LP unremarkable. Patient to be transitioned to oral valacyclovir, and other antibiotics to be discontinued. Await PCR studies from CSF. Case discussed with hospitalist service. Subjective Patient seen in follow-up for unexplained febrile illness. Had lumbar puncture performed, no significant pleocytosis found. Patient feeling much better, headache almost gone, no new complaints. Remains afebrile. Review of Systems Review of Systems: All systems reviewed & are unremarkable except as noted in HPI & below Physical Exam Constitutional: WD/WN, vitals as above comfortable; no acute distress Eyes: PERRL, conjunctivae normal, anicteric sclerae ENMT: external ear and nose normal, oropharynx normal Neck: trachea midline, no thyromegaly neck nontender Respiratory: normal respiratory effort, lungs clear to auscultation normal percussion; does not use accessory muscles Cardiovascular: Rate/Rhythm: regular rate and regular rhythm Heart Sounds: normal S1 and normal S2; no gallop, no murmur and no cardiac rub Vessels: normal peripheral pulses; no JVD Gastrointestinal (Abdomen): normal bowel sounds, soft, nontender, no hepatosplenomegaly Musculoskeletal: no cyanosis or clubbing, extremities motor strength 5/5 Head/Neck/Chest: normocephalic, head atraumatic and neck supple Spine: thoracic spine normal to inspection and lumbar spine normal to inspection; no cervical spinal tenderness Skin: no rashes, warm and dry normal turgor; no lesions Neurologic: patellar DTR's 2+ bilat, sensation intact no focal motor deficits Psychiatric: A+Ox3, euthymic affect Orientation: cooperative Lymphatic: no cervical or axillary lymphadenopathy no inguinal lymphadenopathy Results & Data Vital Signs (Past 12 Hours) Vital Signs Temp Pulse Pulse Resp BP BP Pulse Ox 04/27/19 17:26 36.5 C 77 20 115/77 93 04/27/19 15:41 36.3 C L 76 20 123/75 95 04/27/19 13:37 36.4 C L 78 18 124/80 92 04/27/19 07:42 36.7 C 79 17 100/57 L 92 Laboratory Results Short CBC 04/27/19 Range/Units 01:35 WBC 11.25 H (4.8-10.8) K/uL Hgb 12.6 L (14.0-18.0) g/dL Hct 34.4 L (42-52) % Plt Count 241 (130-400) K/uL BMP 04/27/19 01:35 Sodium 137 Potassium 3.7 Chloride 105 Carbon Dioxide 24 BUN 14 Creatinine 0.83 Glucose 212 H Calcium 8.0 L Liver Function 04/27/19 Range/Units 01:35 Total Bilirubin 0.8 (0.2-1) mg/dl Direct Bilirubin < 0.1 (0-0.2) mg/dl AST 19 (15-37) U/L ALT 79 H (12-78) U/L Alkaline Phosphatase 107 (45-117) U/L Albumin 2.3 L (3.4-5.0) gm/dl Diagnostic Findings Microbiology 04/25/19 17:06 Blood Aerobic Blood Culture - Preliminary No growth in Aerobic bottle after 48 hours. 04/25/19 17:06 Blood Anaerobic Blood Culture - Preliminary No growth in Anaerobic bottle after 48 hours. 04/25/19 16:57 Blood Aerobic Blood Culture - Preliminary No growth in Aerobic bottle after 48 hours. 04/25/19 16:57 Blood Anaerobic Blood Culture - Preliminary No growth in Anaerobic bottle after 48 hours. 04/27/19 12:05 Cerebral Spinal Fluid Cryptococcal Antigen Test - Final 04/27/19 12:05 Cerebral Spinal Fluid Gram Stain - Final 04/21/19 10:34 Blood Aerobic Blood Culture - Final No growth in Aerobic bottle after 5 days. 04/21/19 10:34 Blood Anaerobic Blood Culture - Final No growth in Anaerobic bottle after 5 days. 04/21/19 10:34 Blood Aerobic Blood Culture - Final No growth in Aerobic bottle after 5 days. 04/21/19 10:34 Blood Anaerobic Blood Culture - Final No growth in Anaerobic bottle after 5 days. 04/23/19 09:15 Stool Escherichia coli Shiga Toxins Test - Final 04/23/19 09:15 Stool Stool Culture - Final No Salmonella isolated, No Shigella isolated, No Campylobacter jejuni isolated. 04/21/19 10:38 Throat Group A Streptococcus Rapid Screen - Final Specimen negative for Group A Beta Strep by rapid method. Culture report to follow. 04/21/19 10:38 Throat Group A Beta-Hemolytic Strep Cult - Final No beta strep isolated. PG Care Time/CCT Total # of Minutes Spent Total Time Spent with Patient: Total time spent is greater than 50% in coordination of care (as documented) at patient's floor/unit and/or counseling patient: (1) Fever Fever type: unspecified Qualified Code(s): R50.9 - Fever, unspecified
[2019-04-28] MEDS: VALACYCLOVIR HCL 500 MG TABLET PO SCH ×2 (01:01→08:15)
[2019-04-28] MEDS: METOPROLOL TARTRATE 25 MG TAB PO SCH ×2 (08:15→12:56)
[2019-04-28] MEDS: DOXYCYCLINE HYCLATE 100 MG CAP PO SCH (08:15)
[2019-04-28] MEDS ORDERED: APIXABAN 5 MG TABLET PO SCH (09:00)
--- NOTE | 2019-04-28 12:33 | Discharge Summary ---
Date of Service April 28, 2019 Admission HPI Per Admitting Provider This is a 58yo M with a PMH of HLD and tobacco use who presents with fever and shortness of breath x2 days. Patient has not been feeling like himself for the past few days, with T-max of 101.2 F yesterday. Also endorses chills, nausea without vomiting, sore throat, palpitations and shortness of breath. Noted irregular heartbeat last night and was unable to sleep. Also endorsing lightheadedness and near syncope with dull headache. Denies any dizziness, chest pain, cough, wheezing, vomiting, abdominal pain, dysuria, diarrhea or constipation. Denies any recent tick bites. No recent sick contacts. Patient with heart rate in 130s to 140s initially in ED with BP 91/65. EKG with evidence of A. fib with RVR at 134 bpm. Patient given diltiazem and magnesium replacement. Evaluated by Dr. Patel and started on Eliquis 5mg BID and Lopressor 25mg QID. Admission Exam Per Admitting Provider General Appearance: WD/WN, no apparent distress, resting comfortably Head: normocephalic, atraumatic Eyes: normal inspection, PERRL, EOMI ENT: hearing grossly normal, pharynx normal (moist mucous membranes) Neck: supple, no JVD, no adenopathy Respiratory/Chest: lungs clear to auscultation. No wheezes, rales or rhonchi. No respiratory distress or accessory muscle use Cardiovascular: irregular rate & rhythm, no murmur appreciated, normal peripheral pulses, no BLE edema Abdomen/GI: normal bowel sounds, soft, non-tender to palpation Extremities/Musculoskelatal: normal inspection, no calf tenderness, normal capillary refill Neurologic/Psych: alert, normal mood/affect, oriented x 3 Skin: normal color, warm/dry Principal Diagnosis viral meningitis new onset atrial fibrillation Discharge Data Allergies Allergy/AdvReac Type Severity Reaction Status Date / Time No Known Allergies Allergy Mild Unverified 04/21/19 07:29 Consultations 04/21/19 08:45 Consult Cardiology Stat 04/21/19 08:54 ED Decision to Admit Stat 04/22/19 17:58 Consult Infectious Diseases Routine Ordered Studies 04/21/19 21:10 CT angio chest PE protocol Urgent 04/23/19 14:18 CT head/brain wo con Stat 04/27/19 11:30 FL lumbar puncture diagnostic Routine Hospital Course (1) Viral meningitis, unspecified: (2) Atrial fibrillation with RVR: (3) Tobacco use disorder: 58-year-old man with meningitis symptoms for one week and new onset atrial fibrillation was admitted to the Hospitalist service. Cardiology was consulted and started Eliquis and metoprolol 25 mg p.o. twice daily. He spontaneously converted to sinus rhythm and continued to tolerate metoprolol and Eliquis without issue. However hospitalization continued as the patient continued to spike fevers. Infectious disease was consulted and rickettsial illness, specifically Anaplasma, was a concern in the setting of worsening thrombocytope sunny and a meningitis type picture. A lumbar puncture was recommended, therefore, Eliquis was held for 48 hours per protocol. A lumbar puncture was performed on 04/27/2019 revealing clear colorless CSF with no xanthochromia, CSF white blood cell of 2, red blood cell 0, glucose 113 and total protein 51.6. Serologies were sent for West Nile RNA, Lyme PCR, HSV 1 and 2 PCR, enterovirus PCR. Gram stain was negative and culture was pending at the time of discharge. Additionally serologies for EBV and CMV as well as Anaplasma PCR were pending at time of discharge. Eliquis was restarted without issue. He had empirically been on vancomycin and ceftriaxone until 04/25, at which point acyclovir and dexamethasone were added for worsening symptoms. He clinically improved after this and after lumbar puncture results on 04/27, all antibiotics aside from doxycycline were stopped. He continued to do well. Acyclovir was transitioned to oral Valtrex at time of discharge. At time of discharge a [id number] examination was performed revealing an hemodynamically stable patient who was afebrile for over 24 hours. He was mentating and ambulating at baseline and tolerating p.o. Physical exam revealed no neck stiffness with full range of motion of C-spine and no Kernig's or Brudzinski sign. Heart and lung exam was normal and physical exam was otherwise unremarkable. During his admission a fu ll skin exam was performed with no evidence of lesions or rash. Close primary care follow-up was recommended for follow-up of serologies and to ensure clinical improvement after presumed aseptic meningitis. Cardiology follow-up was also recommended as he was sent out on Eliquis and metoprolol. He remained in normal sinus rhythm after spontaneously converting. He will follow-up with cardiology to see if anticoagulation needs to be continued. After discharge CSF studies came back negative, with Anaplasma, EBV and CMV studies still pending as of 05/02/2019. This was discussed with patient's primary care provider, Dr. Ashok Harper. Total Time Total Time Spent Total Time Spent (In Minutes): 60 Total Time Includes: Examination of the Patient, Discharge Planning, Medication Reconciliation and Communication With Other Providers Discharge Plan Discharge Items Patient Disposition: Home - Self-Care Reason For Visit: AFIB RVR, FEVER,SORE THROAT, DIZZY SPELL Discharge Diagnosis: viral meningitis new onset atrial fibrillation Condition: Good Discharge Goals: Decrease discomfort Activity: Resume your previous activity Non-emergency contact: Primary Care Provider Call non-emergency contact if: you have any medication questions Follow-up/Referrals: Bridger Patel DO [Dermatology Sales Representative] - Ashok Mcghee DO [Primary Care Provider] - 04/27/19 2:55 pm Diet: Regular Addtl Provider Instructions: Please take all medications as prescribed on discharge list below. You have been started on Eliquis for stroke prevention in the setting of atrial fibrillation, metoprolol is there to control your heart rate, valacyclovir is an antiviral and doxycycline is an antibiotic. Please finish these last two drugs unless otherwise instructed by your physician that labwork has returned and is negative. You will need to discuss pending lab studies with your primary care doctor in follow-up. There were some abnormalities found on your chest CT while you were in the hospital. These are probably benign however a follow-up chest CT in 6 months to ensure stability is recommended. This can be ordered by your primary care physician. You have the following appointment with primary care: 05/02/2019 2:00 PM Ashok Mcghee DO [facility] Outpatient follow-up with cardiology Dr. Patel at [facility] in 3 to 4 weeks is recommended to continue care of your heart arrhythmia It was a pleasure taking care of you! Please call if you have any questions or problems. You can reach a [facility] hospitalist on duty at [facility] 24 hours a day by calling [phone]. Take care of yourself. DO [facility] Prescriptions: New Eliquis 5 mg Tablet 5 mg PO BID 30 Days Qty: 60 RF: 3 valacyclovir 500 mg Tablet 1,000 mg PO Q8H 11 Days Qty: 66 RF: 0 doxycycline hyclate 100 mg Capsule 100 mg PO BID 7 Days Qty: 14 RF: 0 metoprolol tartrate 50 mg tablet 50 mg PO BID Qty: 60 RF: 1 Continued acetaminophen [Tylenol Extra Strength] 500 mg Tablet 1,000 mg PO Q6H PRN (Reason: Fever) RF: 0 Stand-Alone Forms: Call Back Authorization, [facility]/Other Patient Handouts: Prediabetes, Diabetes Meal Planning Discharge Orders: Discharge Order (Routine); Ordered 04/28/19 Ordered By: Tatiana Sampson Admission Data Admit Date/Time: 04/21/19 09:35 Attending Provider: Tatiana Sampson Admit Provider: Louise Esquivel Primary Care Provider: Ashok Mcghee Other Providers: Bridger Patel ; Louise Esquivel ; Ayden Holcomb Service: Medical Other Interventions: Discharge Summary Assessment (RN) Last Done: 04/28/19 11:25 Pending Studies at Discharge: Yes Studies:: CSF studies DC Date/Time DO NOT enter until pt leaves facility: 04/28/19 13:07
[2019-05-02 06:26] LABS: Enterovirus RNA by PCR Not Detected (Not Detected); HSV Type 1 DNA Not Detected (Not Detected); HSV Type 1&2 DNA Source CSF; HSV Type 2 DNA Not Detected (Not Detected); Lyme DNA PCR CSF or Synovial Not detected (Not Detected); Lyme DNA Source CSF
[2019-05-02 14:08] LABS: CMV DNA Qnt Real Time PCR <200 IU/mL (<200); CMV DNA Quant PCR <2.30 log IU/mL (<2.30); CMV IgM Antibody <30.00 Au/mL; EBV DNA Quant PCR <200 copies/mL (<200); EBV DNA Quant Source Plasma
[2019-05-11 11:04] LABS: Ehrlichia chaff IgG Ab <1:64; Ehrlichia chaff IgM Ab <1:20
== END 2019-04-28 13:07 | disposition home or self-care (01) | DRG 76 ==
LOC: ED 07:07 → SUATTDRO 09:35 → 2S 09:35 → 3N 04-22 15:20 → 2S 04-25 16:26 → 4W 04-27 16:27

== ENCOUNTER 2020-12-22 12:05 | Observation (INO) ==
[2020-12-22 12:57] LABS: Basophils # (auto) 0.03 K/uL (0-0.2); Basophils % (auto) 0.2 %; Hematocrit (blood only) 42.2 % (42-52); Hemoglobin 15.1 g/dL (14.0-18.0); Immature Granulocytes # (auto) 0.05 K/uL (0.00-0.02); Immature Granulocytes % (auto) 0.3 %; Lymphocytes # (auto) 0.88 K/uL (1.2-3.4); Lymphocytes % (auto) 4.9 %; Mean Corpuscular Hemoglobin 32.8 pg (25-34); Mean Corpuscular Hgb Conc 35.8 g/dL (32-36); Mean Corpuscular Volume 91.5 fL (80-100); Mean Platelet Volume 10.3 fL (7.4-10.4); Monocytes % (auto) 7.3 %; Neutrophils # (auto) 15.65 K/uL (1.4-6.5); Neutrophils % (auto) 87.3 %; Platelet Count 149 K/uL (130-400); RDW Coefficient of Variation 13.3 % (11.5-14.5); RDW Standard Deviation 44.3 fL (36.4-46.3); Red Blood Count 4.61 M/uL (4.7-6.1); White Blood Count 17.91 K/uL (4.8-10.8)
[2020-12-22] MEDS ORDERED: SODIUM CHLORIDE 0.9% 1000ML 2,000 ML IV ONE (13:12)
[2020-12-22] MEDS ORDERED: METOCLOPRAMIDE HCL INJ 5 MG/ML 2 ML VIAL IV STA (13:12)
[2020-12-22] MEDS ORDERED: FAMOTIDINE 20MG IV PUSH 20 MG/5 ML SYR IV STA (13:12)
[2020-12-22] MEDS ORDERED: ACETAMINOPHEN 1,000 MG/100 ML VIAL IV STA (13:12)
[2020-12-22] MEDS ORDERED: diphenhydrAMINE 50 MG/ML VIAL IV STA (13:12)
[2020-12-22 13:14] LABS: Albumin Level 3.3 gm/dl (3.4-5.0); BUN Creatinine Ratio 13.5 (10-20); Calcium 8.5 mg/dl (8.5-10.1); Est GFR (African American) 86.8; Est GFR (Non-African American) 74.8; Potassium 3.9 mmol/L (3.5-5.1)
[2020-12-22 13:17] LABS: Albumin Globulin Ratio 0.8 (0.9-2); Bilirubin,Total 1.9 mg/dl (0.2-1); Total Protein 7.3 gm/dl (6.4-8.2)
[2020-12-22] MEDS ORDERED: cefTRIAXone SODIUM 2,000 MG/70 ML BAG IV STA (13:23)
[2020-12-22 13:30] LABS: Bilirubin Direct 0.5 mg/dl (0-0.2); Phosphorus 1.8 mg/dl (2.5-4.9)
--- NOTE | 2020-12-22 13:43 | XRay Report ---
XR chest 1V portable CLINICAL HISTORY: fever COMPARISON STUDY: Chest radiograph and chest CT April 21, 2019 FINDINGS: Lung volumes are normal. Lungs are clear. There is no pneumothorax or pleural effusion. Car diac size is normal. Mediastinal contours are normal. There is no evidence for pulmonary edema. IMPRESSION: No acute cardiopulmonary findings. ACT 112: Negative or not required by law. Electronically signed by: Víctor Ward M.D. 12/22/2020 1:41 PM
[2020-12-22] MEDS ORDERED: OPTIRAY 300 100mL IV ONE (14:11)
[2020-12-22 14:27] LABS: Appearance Urine Clear (Clear); Bacteria Urine Automated Negative (Negative); Blood Urine Negative (Negative); Color Urine Dark Yellow; Glucose Urine UA Negative (Negative); Ketones Urine Trace (Negative); Leukocyte Esterase Urine Negative (Negative); Nitrite Urine Negative (Negative); Protein Urine 1+ (Negative); RBC Urine Automated 0-4 /hpf (0-4); Specific Gravity Urine 1.024 (1.000-1.030); Urobilinogen Urine Negative (Negative)
[2020-12-22 14:29] LABS: Bilirubin Urine 1+ (Negative)
--- NOTE | 2020-12-22 14:53 | CT Scan Report ---
CT OF THE ABDOMEN AND PELVIS WITH CONTRAST CLINICAL HISTORY: Abdominal pain. Fever. COMPARISON STUDY: None. TECHNIQUE: Following IV administration of 89 mL of Optiray, axial images of the abdomen and pelvis we re obtained from the lung bases to the proximal femurs. Images were reviewed in the axial, sagittal, and coronal planes. IV contrast was administered without complication. Automated exposure control wa s utilized for the study. A dose lowering technique was utilized adhering to the principles of ALARA . CT DOSE: 620.82 mGy.cm FINDINGS: No pneumatosis or portal venous gas is present. There is probable hepatic stent stenosis. T he spleen, adrenal glands and pancreas are unremarkable. Water attenuation bilateral renal lesions re flect cysts. There is no hydronephrosis. There are punctate calculi within the lower pole of the righ t kidney. Colonic diverticulosis is noted without evidence for acute diverticulitis. The appendix is dilated, measuring 1.6 cm in caliber. The wall thickening. Multiple locules of extraluminal gas are n oted along the medial aspect of the appendix. The findings represent a perforation. There is moderate periappendiceal infiltration. No suspicious osseous lesions are present. Major vasculature is patent . IMPRESSION: Findings consistent with perforated acute appendicitis. Dilated appendix with periappend iceal infiltration, fluid and multiple locules of extraluminal gas. ACT 112: Negative or not required by law. Electronically signed by: Víctor Ward M.D. 12/22/2020 2:51 PM
[2020-12-22 14:59] LABS: Influenza A virus by PCR Negative (Neg); Influenza B virus by PCR Negative (Neg); RSV by PCR Negative (Neg); SARS CoV2 RNA(COVID-19) InHosp NEGATIVE (Negative)
[2020-12-22] MEDS ORDERED: PIPERACILL/TAZOBAC CONSULT ACTIVE PRN ×2 (15:06→21:32)
[2020-12-22] MEDS ORDERED: PIPERACILLIN/TAZOBACTAM 4.5 GM/120 ML BAG IV ONE (15:06)
[2020-12-22] MEDS ORDERED: MoRPHine SULFATE 2 MG/ML CARP IV PRN (15:44)
[2020-12-22] MEDS ORDERED: MoRPHine SULFATE 4 MG/ML 1 ML CARP\\VIAL IV PRN ×2 (15:44→21:32)
[2020-12-22] MEDS ORDERED: LACTATED RINGER'S 1,000 ML IV SCH (15:45)
--- NOTE | 2020-12-22 16:51 | History & Physical Report ---
Date of Service December 22, 2020 Assessment & Plan (1) Acute perforated appendicitis: 60-year-old male with acute perforated appendicitis. We discussed his treatment options to include observation with antibiotics versus surgical intervention. We discussed the risks and benefits of each. Given the fact that this appears to be an early perforation and does not have a significant phlegmon or abscess, we agreed to proceed with laparoscopic appendectomy. I did advise him that if we ran into significant inflammatory changes that might necessitate a partial colectomy or significant open surgery, I would likely place a drain and treat him with antibiotics. Plan for laparoscopic appendectomy, possible open, possible bowel resection The risk the procedure were discussed to include but not limited to bleeding, infection, open surgery, bowel resection, damage to surrounding structures, need for future more extensive surgery, abscess, and the risk of anesthesia Antibiotics given in the emergency department Patient will likely be in the hospital the next few days until his white blood c ell count normalizes and he is afebrile The diagnosis, details the procedure and recovery, and plan of care were discussed with the patient, all questions were answered, the patient expressed understanding agrees the plan of care as stated (2) Tobacco use disorder: (3) HLD (hyperlipidemia): History of Present Illness Primary Care Provider: Ashok Mcghee DO 60-year-old male presented to the emergency department with 3 days of abdominal pain. Mostly lower abdominal in nature. He had some relief yesterday evening but became much worse this morning when standing up and walking around. He has never had pain like this before. He gets colonoscopies every 5 years with no significant abnormalities. He reported some fevers at home. N.p.o. since 8:00 this morning after drinking some Gatorade. No prior abdominal surgeries. Has some hypertension. Allergies Allergy/AdvReac Type Severity Reaction Status Date / Time No Known Allergies Allergy Mild Verified 12/22/20 14:57 Home Medications Medication Instructions Recorded Confirmed Type acetaminophen [Tylenol 8 Hour] 650 mg PO Q12H PRN 12/22/20 12/22/20 History aspirin 81 mg PO QAM 12/22/20 12/22/20 History escitalopram oxalate [Lexapro] 5 mg PO QAM 12/22/20 12/22/20 History melatonin 10 mg PO HS PRN 12/22/20 12/22/20 History metoprolol tartrate 12.5 mg PO BID 12/22/20 12/22/20 History [id number] 1 tab PO QAM 12/22/20 12/22/20 History [Centrum Silver] omega-3 fatty acids [Fish Oil 1,000 mg PO QAM 12/22/20 12/22/20 History Concentrate] saw palmetto 160 mg PO QAM 12/22/20 12/22/20 History Past Med/Surg History Medical History (Updated 12/22/20 @ 16:48 by Huan Boyd DO, FACS) Acute perforated appendicitis Cigarette smoker HLD (hyperlipidemia) Prediabetes Tobacco use disorder Family History Other Diabetes Heart disease Social History Smoking Status: Never smoker Cigarettes Per Day: 3-4 CIGARETTES PER WEEK, CHEWING TOBACCO 1.5 CANS/WEEK; Second Hand Exposure: Yes; Hx Alcohol Use: Yes Alcohol type: beer Hx Substance Use: No Preferred Language: Ukrainian Communication Ability: Effective Bromination Equipment Operator Required: No Beliefs That Will Affect Care: None marital status: Current Living Situation: Spouse Feels Safe at Home: Yes Assistive Devices: None Review of Systems Review of Systems: All systems reviewed & are unremarkable except as noted in HPI & below Physical Exam Constitutional: WD/WN, vitals as above Respiratory: normal respiratory effort, lungs clear to auscultation Cardiovascular: RRR, no murmur, no edema Gastrointestinal (Abdomen): Percussion/Palpation: + abdomen tender (Tender to palpation in right lower quadrant with localized guarding), + guarding and abdomen soft; abdomen not rigid and no hernia Results & Data Results & Data ([facility]) Vital Signs (Past 12 Hours) Vital Signs Temp Pulse Resp BP Pulse Ox 12/22/20 16:10 82 21 94 12/22/20 16:01 86 22 93 12/22/20 16:00 84 21 103/71 94 12/22/20 15:50 81 17 93 12/22/20 15:40 82 18 93 12/22/20 15:31 89 21 93 12/22/20 15:30 85 19 101/71 94 12/22/20 15:20 86 15 94 12/22/20 15:10 86 23 95 12/22/20 15:01 82 18 94 12/22/20 15:00 95 H 17 103/67 93 12/22/20 14:50 83 17 94 12/22/20 14:40 83 19 94 12/22/20 14:31 83 16 95 12/22/20 14:30 85 19 106/69 94 12/22/20 14:20 91 H 30 H 94 12/22/20 14:19 90 35 H 93 12/22/20 14:01 92 H 23 12/22/20 14:00 100 H 21 122/78 12/22/20 13:50 89 24 93 12/22/20 13:40 85 20 94 12/22/20 13:31 96 H 16 96 12/22/20 13:30 93 H 25 H 127/72 95 12/22/20 13:20 113 H 15 94 12/22/20 13:10 97 H 18 95 12/22/20 13:01 90 18 94 12/22/20 13:00 89 19 120/70 94 12/22/20 12:52 91 H 21 93 12/22/20 12:47 101 H 22 114/74 93 12/22/20 12:15 36.7 C 107 H 18 127/79 94 Laboratory Results Laboratory Results - last 24 hr 12/22/20 12/22/20 12/22/20 12:45 12:45 12:45 WBC 17.91 H RBC 4.61 L Hgb 15.1 Hct 42.2 MCV 91.5 MCH 32.8 MCHC 35.8 RDW Std Deviation 44.3 RDW Coeff of Debbie 13.3 Plt Count 149 MPV 10.3 Immature Gran % (Auto) 0.3 Neut % (Auto) 87.3 Lymph % (Auto) 4.9 [place] % (Auto) 7.3 Eos % (Auto) 0.0 Baso % (Auto) 0.2 Neut # (Auto) 15.65 H Lymph # (Auto) 0.88 L Davie # (Auto) 1.30 H Eos # (Auto) 0.00 Baso # (Auto) 0.03 Immature Gran # (Auto) 0.05 H Sodium 134 L Potassium 3.9 Chloride 101 Carbon Dioxide 30 Anion Gap 3.0 BUN 14 Creatinine 1.06 Est Cr Clr Drug Dosing 77.0 Est GFR ( Amer) 86.8 Est GFR (Non-Af Amer) 74.8 BUN/Creatinine Ratio 13.5 Glucose 155 H Lactate Calcium 8.5 Phosphorus 1.8 L Magnesium 2.0 Total Bilirubin 1.9 H Direct Bilirubin 0.5 H AST 23 ALT 39 Alkaline Phosphatase 75 Total Protein 7.3 Albumin 3.3 L Globulin 4.0 Albumin/Globulin Ratio 0.8 L Lipase 47 L Procalcitonin 4.04 H Urine Color Urine Appearance Urine pH Ur Specific [place] Urine Protein Urine Glucose (UA) Urine Ketones Urine Blood Urine Nitrite Urine Bilirubin Urine Urobilinogen Ur Leukocyte Esterase Urine WBC (Auto) Urine RBC (Auto) U Hyaline Cast (Auto) U Epithel Cells (Auto) Urine Bacteria (Auto) COVID-19 Eval Order SARS-CoV-2 (PCR) Influenza Type A (PCR) Influenza Type B (PCR) RSV (RT-PCR) 12/22/20 12/22/20 12/22/20 14:02 14:06 Unknown WBC RBC Hgb Hct MCV MCH MCHC RDW Std Deviation RDW Coeff of Debbie Plt Count MPV Immature Gran % (Auto) Neut % (Auto) Lymph % (Auto) [place] % (Auto) Eos % (Auto) Baso % (Auto) Neut # (Auto) Lymph # (Auto) [place]ie # (Auto) Eos # (Auto) Baso # (Auto) Immature Gran # (Auto) Sodium Potassium Chloride Carbon Dioxide Anion Gap BUN Creatinine Est Cr Clr Drug Dosing Est GFR ( Amer) Est GFR (Non-Af Amer) BUN/Creatinine Ratio Glucose Lactate 1.2 Calcium Phosphorus Magnesium Total Bilirubin Direct Bilirubin AST ALT Alkaline Phosphatase Total Protein Albumin Globulin Albumin/Globulin Ratio Lipase Procalcitonin Urine Color Dark Yellow Urine Appearance Clear Urine pH 6.0 Ur Specific [place] 1.024 Urine Protein 1+ H Urine Glucose (UA) Negative Urine Ketones Trace H Urine Blood Negative Urine Nitrite Negative Urine Bilirubin 1+ H Urine Urobilinogen Negative Ur Leukocyte Esterase Negative Urine WBC (Auto) 1-5 Urine RBC (Auto) 0-4 U Hyaline Cast (Auto) 1-5 U Epithel Cells (Auto) 5-10 H Urine Bacteria (Auto) Negative COVID-19 Eval Order CovFluRsv at [facility] SARS-CoV-2 (PCR) Influenza Type A (PCR) Influenza Type B (PCR) RSV (RT-PCR) 12/22/20 Unknown WBC RBC Hgb Hct MCV MCH MCHC RDW Std Deviation RDW Coeff of Debbie Plt Count MPV Immature Gran % (Auto) Neut % (Auto) Lymph % (Auto) [place] % (Auto) Eos % (Auto) Baso % (Auto) Neut # (Auto) Lymph # (Auto) [place] # (Auto) Eos # (Auto) Baso # (Auto) Immature Gran # (Auto) Sodium Potassium Chloride Carbon Dioxide Anion Gap BUN Creatinine Est Cr Clr Drug Dosing Est GFR ( Amer) Est GFR (Non-Af Amer) BUN/Creatinine Ratio Glucose Lactate Calcium Phosphorus Magnesium Total Bilirubin Direct Bilirubin AST ALT Alkaline Phosphatase Total Protein Albumin Globulin Albumin/Globulin Ratio Lipase Procalcitonin Urine Color Urine Appearance Urine pH Ur Specific [place] Urine Protein Urine Glucose (UA) Urine Ketones Urine Blood Urine Nitrite Urine Bilirubin Urine Urobilinogen Ur Leukocyte Esterase Urine WBC (Auto) Urine RBC (Auto) U Hyaline Cast (Auto) U Epithel Cells (Auto) Urine Bacteria (Auto) COVID-19 Eval Order SARS-CoV-2 (PCR) NEGATIVE Influenza Type A (PCR) Negative Influenza Type B (PCR) Negative RSV (RT-PCR) Negative Diagnostic Findings I personally reviewed the CT scan and agree with read of perforated appendicitis with extraluminal air. There does not appear to be a significant phlegmon or abscess at this time. CT OF THE ABDOMEN AND PELVIS WITH CONTRAST CLINICAL HISTORY: Abdominal pain. Fever. COMPARISON STUDY: None. TECHNIQUE: Following IV administration of 89 mL of Optiray, axial images of the abdomen and pelvis were obtained from the lung bases to the proximal femurs. Images were reviewed in the axial, sagittal, and coronal planes. IV contrast was administered without complication. Automated exposure control was utilized for the study. A dose lowering technique was utilized adhering to the principles of ALARA. CT DOSE: 620.82 mGy.cm FINDINGS: No pneumatosis or portal venous gas is present. There is probable hepatic stent stenosis. The spleen, adrenal glands and pancreas are unremarkab le. Water attenuation bilateral renal lesions reflect cysts. There is no hydronephrosis. There are punctate calculi within the lower pole of the right kidney. Colonic diverticulosis is noted without evidence for acute diverticulitis. The appendix is dilated, measuring 1.6 cm in caliber. The wall thickening. Multiple locules of extraluminal gas are noted along the medial aspect of the appendix. The findings represent a perforation. There is moderate periappendiceal infiltration. No suspicious osseous lesions are present. Major vasculature is patent. IMPRESSION: Findings consistent with perforated acute appendicitis. Dilated appendix with periappendiceal infiltration, fluid and multiple locules of extraluminal gas. PG Care Time/CCT Total # of Minutes Spent Total Time Spent with Patient: Total time spent is greater than 50% in coordination of care (as documented) at patient's floor/unit and/or counseling patient: Coding Level of Care Code 43751 Initial Inpt Care Lvl 3 Diagnoses Acute perforated appendicitis K35.32 Tobacco use disorder F17.200 HLD (hyperlipidemia) E78.5 Hyperlipidemia type: unspecified (1) HLD (hyperlipidemia) Hyperlipidemia type: unspecified Qualified Code(s): E78.5 - Hyperlipidemia, unspecified
--- NOTE | 2020-12-22 17:32 | Emergency Department Note ---
Impression & Plan Acute perforated appendicitis, Abdominal pain, Leukocytosis ED Provider Note NAME: ESTELA LIANG AGE: 60 SEX: M ARRIVES VIA: Walk-In INFORMANT: Patient, ED PROVIDER(S): Frandy Infante MD CHIEF COMPLAINT: Abdominal pain, fevers PLAN: Disposition: Home. MEDICAL DECISION MAKING: The patient is a pleasant 60-year-old gentleman with a past medical history of prior atrial fibrillation in the setting of infection/viral meningitis 03/2019, hyperlipidemia, prediabetes who presents to the emergency department accompanied by his with concern for worsening abdominal pain, nausea and vomiting with feverishness since Wednesday in addition to development of headache. They deny any cough, congestion, chest pain, shortness of breath. Denies any known COVID-19 exposures. On arrival the patient is uncomfortable but in no acute distress, febrile 38.3, with heart in the 100s and vital signs otherwise stable. On exam the patient appears clinically dry. He has moderate lower abdominal tenderness with increased pain over the right lower quadrant without guarding or rebound. CBC resulting initially and showed WBC 17.9K and so patient was given initial empiric dose of ceftriaxone, given fever and tachycardia. H/H and platelets wi thin normal limits. Chemistry without metabolic acidosis. Phosphorus 1.8 and electrolytes otherwise without significant abnormality. Total bilirubin 1.9 with direct bilirubin 0.5 and LFTs otherwise unremarkable. Lipase is not elevated. Lactic acid 1.2, within normal limits. Procalcitonin for suggestive of bacterial infection. UA without convincing evidence of infection. COVID-19 PCR negative. Influenza and RSV PCR also negative. CT the abdomen pelvis was performed and demonstrates perforated appendicitis. Upon review of CT findings patient was ordered for broader antibiotic coverage with Zosyn given his perforated appendicitis. He did appear somewhat improved following initial IV fluid hydration, APAP. Case was discussed with general surgery on-call, Dr. Boyd, who evaluated the patient at the bedside and will admit the patient to the OR. Patient was updated on the plan and was in agreement. Triage Nursing notes reviewed and agree them. Prior medical records reviewed Vital Signs: reviewed and remarkable for tachycardia, fever. Differential diagnosis: Appendicitis, testicular torsion, infections, diverticulitis, UTI, obstruction, mesenteric ischemia, aortic pathology, inflammatory bowel disease, renal colic, PUD, pancreatitis, biliary pathology, hernia, volvulus, constipation, as well as other pathologies. ER treatment provided: See below. Diagnostics interpreted by me: ECG: Normal sinus rhythm, 91 bpm, no ectopy, no overt ST elevation or depression, QTC 447, QRS 90. Cardiac Monitoring: An order for continuous cardiac monitoring was placed and demonstrated normal sinus rhythm, 91 bpm, no ectopy. Laboratory studies: See below Imaging studies: See below Consultation(s): Dr. Boyd, General surgery on-call. HPI: The patient is a pleasant 60-year-old gentleman with a past medical history of prior atrial fibrillation in the setting of infection/viral meningitis 03/2019, hyperlipidemia, prediabetes who presents to the emergency department accompanied by his with concern for worsening abdominal pain, nausea and vomiting with feverishness since Wednesday in addition to development of headache. They deny any cough, congestion, chest pain, shortness of breath. Denies any known COVID-19 exposures. ROS: See above HPI for pertinent positives & negatives. A total of 10 systems reviewed and were otherwise negative. PAST MEDICAL HISTORY:See Below PAST SURGICAL HISTORY:See Below FAMILY HISTORY:See Below SOCIAL HISTORY:See Below HOME MEDICATIONS:See Below ALLERGIES:See Below VITALS:See Below PHYSICAL EXAMINATION: GENERAL: Awake, alert, uncomfortable-appearing, in no distress HENT: Normocephalic, atraumatic. Oropharynx with dry mucous membranes and otherwise unremarkable. EYES: Normal conjunctiva. Sclera non-icteric. NECK: Supple. No nuchal rigidity. FROM. No JVD. RESPIRATORY: Clear to auscultation. CARDIAC: Tachycardic rate, normal rhythm. Extremities warm and well perfused. Pulses equal. ABDOMEN: Soft, non-distended. Moderate lower abdominal tenderness with increased pain over the right lower quadrant without guarding or rebound. No masses. RECTAL: Deferred. MUSCULOSKELETAL: Chest examination reveals no tenderness. The back is symmetrical on inspection without obvious abnormality. There is no CVA tenderness to palpation. No joint edema. LOWER EXTREMITIES: Calves are equal size bilaterally and non-tender. No edema. No discoloration. NEURO: Normal sensorium. No sensory or motor deficits noted. SKIN: No rash or jaundice noted. ED COURSE: Critical Care: I have personally spent greater than 45 minutes of critical care time in the direct management of this patient. This includes bedside care, interpretation of diagnostic studies, and testing, discussion with consultants, patient, and family members, and other required patient management activities. This 45 minutes is in excess of all separately billable procedures. Frandy Infante MD Past Med/Surg History Medical History Acute perforated appendicitis Cigarette smoker HLD (hyperlipidemia) Paroxysmal A-fib Prediabetes Tobacco use disorder Surgical History No significant past surgical history Family History Other Diabetes Heart disease Social History Smoking Status: Never smoker Cigarettes Per Day: 3-4 CIGARETTES PER WEEK, CHEWING TOBACCO 1.5 CANS/WEEK; Second Hand Exposure: No; Do You Dip or Chew Tobacco: Yes; Tobacco Cessation Education Requested by Patient: No Hx Alcohol Use: No Hx Substance Use: No Preferred Language: French Communication Ability: Effective Barge Master Required: No Beliefs That Will Affect Care: None marital status: Current Living Situation: Spouse Other Information That Helps Us Care for You: No Feels Safe at Home: Yes Safety Concerns: Feels Safe At This Time Assistive Devices: None Allergies Allergies Allergy/AdvReac Type Severity Reaction Status Date / Time No Known Allergies Allergy Mild Verified 12/22/20 14:57 Home Meds Home Medications Medication Instructions Recorded Confirmed acetaminophen [Tylenol 8 Hour] 650 mg PO Q12H PRN 12/22/20 12/22/20 aspirin 81 mg PO QAM 12/22/20 12/22/20 escitalopram oxalate [Lexapro] 5 mg PO QAM 12/22/20 12/22/20 melatonin 10 mg PO HS PRN 12/22/20 12/22/20 metoprolol tartrate 12.5 mg PO BID 12/22/20 12/22/20 [id number] 1 tab PO QAM 12/22/20 12/22/20 [Centrum Silver] omega-3 fatty acids [Fish Oil 1,000 mg PO QAM 12/22/20 12/22/20 Concentrate] saw palmetto 160 mg PO QAM 12/22/20 12/22/20 Results & Data (ED) Vital Signs Vital Signs - 24 hr 12/22/20 12:15 12/22/20 12:47 12/22/20 12:52 Temperature 36.7 C Temperature Source Oral Pulse Rate 107 H 101 H 91 H Pulse Rate from SpO2 Sensor 100 H 90 Respiratory Rate 18 22 21 Blood Pressure 127/79 114/74 Blood Pressure Mean 95 87 Pulse Oximetry 94 93 93 Oxygen Delivery Method Room Air Room Air Room Air Sepsis Recent Fever Within 48 Hours Yes Sepsis New/Unexplained Change in Mental Status N/A Sepsis Action Taken by Nursing No Action Required 12/22/20 13:00 12/22/20 13:01 12/22/20 13:10 Temperature Temperature Source Pulse Rate 89 90 97 H Pulse Rate from SpO2 Sensor 89 91 H 97 H Respiratory Rate 19 18 18 Blood Pressure 120/70 Blood Pressure Mean 86 Pulse Oximetry 94 94 95 Oxygen Delivery Method Room Air Room Air Room Air Sepsis Recent Fever Within 48 Hours Sepsis New/Unexplained Change in Mental Status Sepsis Action Taken by Nursing 12/22/20 13:20 12/22/20 13:30 12/22/20 13:31 Temperature Temperature Source Pulse Rate 113 H 93 H 96 H Pulse Rate from SpO2 Sensor 112 H 92 H 91 H Respiratory Rate 15 25 H 16 Blood Pressure 127/72 Blood Pressure Mean 90 Pulse Oximetry 94 95 96 Oxygen Delivery Method Room Air Room Air Room Air Sepsis Recent Fever Within 48 Hours Sepsis New/Unexplained Change in Mental Status Sepsis Action Taken by Nursing 12/22/20 13:40 12/22/20 13:50 12/22/20 14:00 Temperature Temperature Source Pulse Rate 85 89 100 H Pulse Rate from SpO2 Sensor 87 90 Respiratory Rate 20 24 21 Blood Pressure 122/78 Blood Pressure Mean 92 Pulse Oximetry 94 93 Oxygen Delivery Method Room Air Room Air Room Air Sepsis Recent Fever Within 48 Hours Sepsis New/Unexplained Change in Mental Status Sepsis Action Taken by Nursing 12/22/20 14:01 12/22/20 14:19 12/22/20 14:20 Temperature Temperature Source Pulse Rate 92 H 90 91 H Pulse Rate from SpO2 Sensor 89 93 H Respiratory Rate 23 35 H 30 H Blood Pressure Blood Pressure Mean Pulse Oximetry 93 94 Oxygen Delivery Method Room Air Room Air Room Air Sepsis Recent Fever Within 48 Hours Sepsis New/Unexplained Change in Mental Status Sepsis Action Taken by Nursing 12/22/20 14:30 12/22/20 14:31 12/22/20 14:40 Temperature Temperature Source Pulse Rate 85 83 83 Pulse Rate from SpO2 Sensor 84 83 84 Respiratory Rate 19 16 19 Blood Pressure 106/69 Blood Pressure Mean 81 Pulse Oximetry 94 95 94 Oxygen Delivery Method Room Air Room Air Room Air Sepsis Recent Fever Within 48 Hours Sepsis New/Unexplained Change in Mental Status Sepsis Action Taken by Nursing 12/22/20 14:50 12/22/20 15:00 12/22/20 15:01 Temperature Temperature Source Pulse Rate 83 95 H 82 Pulse Rate from SpO2 Sensor 84 95 H 82 Respiratory Rate 17 17 18 Blood Pressure 103/67 Blood Pressure Mean 79 Pulse Oximetry 94 93 94 Oxygen Delivery Method Room Air Room Air Room Air Sepsis Recent Fever Within 48 Hours Sepsis New/Unexplained Change in Mental Status Sepsis Action Taken by Nursing 12/22/20 15:10 12/22/20 15:20 12/22/20 15:30 Temperature Temperature Source Pulse Rate 86 86 85 Pulse Rate from SpO2 Sensor 87 87 85 Respiratory Rate 23 15 19 Blood Pressure 101/71 Blood Pressure Mean 81 Pulse Oximetry 95 94 94 Oxygen Delivery Method Room Air Room Air Room Air Sepsis Recent Fever Within 48 Hours Sepsis New/Unexplained Change in Mental Status Sepsis Action Taken by Nursing 12/22/20 15:31 12/22/20 15:40 12/22/20 15:50 Temperature Temperature Source Pulse Rate 89 82 81 Pulse Rate from SpO2 Sensor 88 82 80 Respiratory Rate 21 18 17 Blood Pressure Blood Pressure Mean Pulse Oximetry 93 93 93 Oxygen Delivery Method Room Air Room Air Room Air Sepsis Recent Fever Within 48 Hours Sepsis New/Unexplained Change in Mental Status Sepsis Action Taken by Nursing 12/22/20 16:00 12/22/20 16:01 12/22/20 16:10 Temperature Temperature Source Pulse Rate 84 86 82 Pulse Rate from SpO2 Sensor 83 85 84 Respiratory Rate 21 22 21 Blood Pressure 103/71 Blood Pressure Mean 81 Pulse Oximetry 94 93 94 Oxygen Delivery Method Room Air Room Air Room Air Sepsis Recent Fever Within 48 Hours Sepsis New/Unexplained Change in Mental Status Sepsis Action Taken by Nursing 12/22/20 16:20 12/22/20 16:30 12/22/20 16:31 Temperature Temperature Source Pulse Rate 83 84 95 H Pulse Rate from SpO2 Sensor 81 83 97 H Respiratory Rate 20 21 15 Blood Pressure 106/70 Blood Pressure Mean 82 Pulse Oximetry 94 93 93 Oxygen Delivery Method Room Air Room Air Room Air Sepsis Recent Fever Within 48 Hours Sepsis New/Unexplained Change in Mental Status Sepsis Action Taken by Nursing 12/22/20 16:40 12/22/20 16:50 12/22/20 17:00 Temperature Temperature Source Pulse Rate 79 85 76 Pulse Rate from SpO2 Sensor 78 84 76 Respiratory Rate 19 21 19 Blood Pressure 105/68 Blood Pressure Mean 80 Pulse Oximetry 93 94 94 Oxygen Delivery Method Room Air Room Air Room Air Sepsis Recent Fever Within 48 Hours Sepsis New/Unexplained Change in Mental Status Sepsis Action Taken by Nursing 12/22/20 17:01 12/22/20 17:10 12/22/20 17:20 Temperature Temperature Source Pulse Rate 78 79 84 Pulse Rate from SpO2 Sensor 79 79 83 Respiratory Rate 18 18 18 Blood Pressure Blood Pressure Mean Pulse Oximetry 93 93 94 Oxygen Delivery Method Room Air Room Air Room Air Sepsis Recent Fever Within 48 Hours Sepsis New/Unexplained Change in Mental Status Sepsis Action Taken by Nursing 12/22/20 17:30 12/22/20 17:31 12/22/20 17:40 Temperature Temperature Source Pulse Rate 81 78 76 Pulse Rate from SpO2 Sensor 80 78 76 Respiratory Rate 17 16 17 Blood Pressure 96/64 L Blood Pressure Mean 74 Pulse Oximetry 94 93 94 Oxygen Delivery Method Room Air Room Air Room Air Sepsis Recent Fever Within 48 Hours Sepsis New/Unexplained Change in Mental Status Sepsis Action Taken by Nursing 12/22/20 17:50 12/22/20 18:00 12/22/20 18:01 Temperature Temperature Source Pulse Rate 75 75 74 Pulse Rate from SpO2 Sensor 76 75 75 Respiratory Rate 18 19 18 Blood Pressure 97/65 L Blood Pressure Mean 75 Pulse Oximetry 94 94 94 Oxygen Delivery Method Room Air Room Air Room Air Sepsis Recent Fever Within 48 Hours Sepsis New/Unexplained Change in Mental Status Sepsis Action Taken by Nursing 12/22/20 18:10 12/22/20 18:20 12/22/20 18:30 Temperature Temperature Source Pulse Rate 76 75 78 Pulse Rate from SpO2 Sensor 76 75 77 Respiratory Rate 17 18 18 Blood Pressure 102/67 Blood Pressure Mean 78 Pulse Oximetry 94 94 94 Oxygen Delivery Method Room Air Room Air Room Air Sepsis Recent Fever Within 48 Hours Sepsis New/Unexplained Change in Mental Status Sepsis Action Taken by Nursing 12/22/20 18:31 12/22/20 18:43 Temperature Temperature Source Pulse Rate 77 Pulse Rate from SpO2 Sensor 77 Respiratory Rate 19 Blood Pressure Blood Pressure Mean Pulse Oximetry 95 Oxygen Delivery Method Room Air Room Air Sepsis Recent Fever Within 48 Hours Sepsis New/Unexplained Change in Mental Status Sepsis Action Taken by Nursing Laboratory Data Attestation: I reviewed the patient's lab results. Result diagrams: 12/22/20 12:45 12/22/20 12:45 Lab Results 12/22/20 12/22/20 12/22/20 Range/Units 12:45 12:45 12:45 WBC 17.91 H (4.8-10.8) K/uL RBC 4.61 L (4.7-6.1) M/uL Hgb 15.1 (14.0-18.0) g/dL Hct 42.2 (42-52) % MCV 91.5 (80-100) fL MCH 32.8 (25-34) pg MCHC 35.8 (32-36) g/dL RDW Std Deviation 44.3 (36.4-46.3) fL RDW Coeff of Debbie 13.3 (11.5-14.5) % Plt Count 149 (130-400) K/uL MPV 10.3 (7.4-10.4) fL Immature Gran % (Auto) 0.3 % Neut % (Auto) 87.3 % Lymph % (Auto) 4.9 % Cottle % (Auto) 7.3 % Eos % (Auto) 0.0 % Baso % (Auto) 0.2 % Neut # (Auto) 15.65 H (1.4-6.5) K/uL Lymph # (Auto) 0.88 L (1.2-3.4) K/uL Cottle # (Auto) 1.30 H (0.11-0.59) K/uL Eos # (Auto) 0.00 (0-0.5) K/uL Baso # (Auto) 0.03 (0-0.2) K/uL Immature Gran # (Auto) 0.05 H (0.00-0.02) K/uL Sodium 134 L (136-145) mmol/L Potassium 3.9 (3.5-5.1) mmol/L Chloride 101 (98-107) mmol/L Carbon Dioxide 30 (21-32) mmol/L Anion Gap 3.0 (3-11) BUN 14 (7-18) mg/dl Creatinine 1.06 (0.6-1.4) mg/dl Est Cr Clr Drug Dosing 77.0 ml/min Est GFR ( Amer) 86.8 Est GFR (Non-Af Amer) 74.8 BUN/Creatinine Ratio 13.5 (10-20) Glucose 155 H (70-99) mg/dl Lactate (0.4-2.0) mmol/L Calcium 8.5 (8.5-10.1) mg/dl Phosphorus 1.8 L (2.5-4.9) mg/dl Magnesium 2.0 (1.8-2.4) mg/dl Total Bilirubin 1.9 H (0.2-1) mg/dl Direct Bilirubin 0.5 H (0-0.2) mg/dl AST 23 (15-37) U/L ALT 39 (12-78) U/L Alkaline Phosphatase 75 (45-117) U/L Total Protein 7.3 (6.4-8.2) gm/dl Albumin 3.3 L (3.4-5.0) gm/dl Globulin 4.0 (2.5-4.0) gm/dl Albumin/Globulin Ratio 0.8 L (0.9-2) Lipase 47 L (73-393) U/L Procalcitonin 4.04 H (0-0.5) ng/ml Urine Color Urine Appearance (Clear) Urine pH (4.5-7.5) Ur Specific Dudley (1.000-1.030) Urine Protein (Negative) Urine Glucose (UA) (Negative) Urine Ketones (Negative) Urine Blood (Negative) Urine Nitrite (Negative) Urine Bilirubin (Negative) Urine Urobilinogen (Negative) Ur Leukocyte Esterase (Negative) Urine WBC (Auto) (0-5) /hpf Urine RBC (Auto) (0-4) /hpf U Hyaline Cast (Auto) (0-5) /lpf U Epithel Cells (Auto) (0-5) /lpf Urine Bacteria (Auto) (Negative) 12/22/20 12/22/20 Range/Units 14:02 14:06 WBC (4.8-10.8) K/uL RBC (4.7-6.1) M/uL Hgb (14.0-18.0) g/dL Hct (42-52) % MCV (80-100) fL MCH (25-34) pg MCHC (32-36) g/dL RDW Std Deviation (36.4-46.3) fL RDW Coeff of Debbie (11.5-14.5) % Plt Count (130-400) K/uL MPV (7.4-10.4) fL Immature Gran % (Auto) % Neut % (Auto) % Lymph % (Auto) % Cottle % (Auto) % Eos % (Auto) % Baso % (Auto) % Neut # (Auto) (1.4-6.5) K/uL Lymph # (Auto) (1.2-3.4) K/uL Cottle # (Auto) (0.11-0.59) K/uL Eos # (Auto) (0-0.5) K/uL Baso # (Auto) (0-0.2) K/uL Immature Gran # (Auto) (0.00-0.02) K/uL Sodium (136-145) mmol/L Potassium (3.5-5.1) mmol/L Chloride (98-107) mmol/L Carbon Dioxide (21-32) mmol/L Anion Gap (3-11) BUN (7-18) mg/dl Creatinine (0.6-1.4) mg/dl Est Cr Clr Drug Dosing ml/min Est GFR ( Amer) Est GFR (Non-Af Amer) BUN/Creatinine Ratio (10-20) Glucose (70-99) mg/dl Lactate 1.2 (0.4-2.0) mmol/L Calcium (8.5-10.1) mg/dl Phosphorus (2.5-4.9) mg/dl Magnesium (1.8-2.4) mg/dl Total Bilirubin (0.2-1) mg/dl Direct Bilirubin (0-0.2) mg/dl AST (15-37) U/L ALT (12-78) U/L Alkaline Phosphatase (45-117) U/L Total Protein (6.4-8.2) gm/dl Albumin (3.4-5.0) gm/dl Globulin (2.5-4.0) gm/dl Albumin/Globulin Ratio (0.9-2) Lipase (73-393) U/L Procalcitonin (0-0.5) ng/ml Urine Color Dark Yellow Urine Appearance Clear (Clear) Urine pH 6.0 (4.5-7.5) Ur Specific Dudley 1.024 (1.000-1.030) Urine Protein 1+ H (Negative) Urine Glucose (UA) Negative (Negative) Urine Ketones Trace H (Negative) Urine Blood Negative (Negative) Urine Nitrite Negative (Negative) Urine Bilirubin 1+ H (Negative) Urine Urobilinogen Negative (Negative) Ur Leukocyte Esterase Negative (Negative) Urine WBC (Auto) 1-5 (0-5) /hpf Urine RBC (Auto) 0-4 (0-4) /hpf U Hyaline Cast (Auto) 1-5 (0-5) /lpf U Epithel Cells (Auto) 5-10 H (0-5) /lpf Urine Bacteria (Auto) Negative (Negative) Administered Medications Lactated Ringer's (Lr) 1,000 mls @ 75 mls/hr IV .[id number] [facility] Stop: 01/21/21 21:31 Last Admin: 12/22/20 22:05 Dose: 75 mls/hr Documented by: [id number] Acetaminophen (Ofirmev) 1,000 mg in 100 mls @ 400 mls/hr IV Q8H [facility] Stop: 12/25/20 21:59 Last Infusion: 12/22/20 22:36 Dose: 0 mls/hr Documented by: [id number] Admin: 12/22/20 22:05 Dose: 400 mls/hr Documented by: [id number] Piperacillin Sod/Tazobactam (Sod 3.375 gm/ Dextrose) 115 mls @ 28.75 mls/hr IV Q8H [facility]; Protocol Stop: 01/01/21 21:59 Last Admin: 12/22/20 22:07 Dose: 28.8 mls/hr Documented by: [id number] Discontinued Medications Bupivacaine HCl (Bupivacaine 0.5 % 5 Mg/1 Ml Mpf 30ml Vial) Confirm Administered Dose 30 ml .ROUTE .STK-MED ONE Stop: 12/22/20 19:15 Last Admin: 12/22/20 20:35 Dose: 20 ml Documented by: [id number] Diphenhydramine HCl (Diphenhydramine 50 Mg/Ml Vial) 25 mg IV NOW STA Stop: 12/22/20 13:13 Last Admin: 12/22/20 13:45 Dose: 25 mg Documented by: [id number] Acetaminophen (Ofirmev) 1,000 mg in 100 mls @ 400 mls/hr IV NOW STA Stop: 12/22/20 13:26 Last Infusion: 12/22/20 14:05 Dose: 0 mls/hr Documented by: [id number] Admin: 12/22/20 13:45 Dose: 400 mls/hr Documented by: [id number] Sodium Chloride (Nss 1000ml) 2,000 mls @ 999 mls/hr IV .Q2H1M ONE Stop: 12/22/20 15:12 Last Infusion: 12/22/20 15:46 Dose: 0 mls/hr Documented by: [id number] Admin: 12/22/20 13:45 Dose: 999 mls/hr Documented by: [id number] Famotidine (Pepcid 20mg Iv Push) 20 mg in 5 mls @ 2.5 mls/min IV NOW STA Stop: 12/22/20 13:13 Last Admin: 12/22/20 14:05 Dose: 2.5 mls/min Documented by: [id number] Ceftriaxone Sodium (Rocephin) 2,000 mg in 70 mls @ 140 mls/hr IV NOW STA Stop: 12/22/20 13:52 Last Infusion: 12/22/20 14:45 Dose: 0 mls/hr Documented by: [id number] Admin: 12/22/20 14:05 Dose: 140 mls/hr Documented by: [id number] Piperacillin Sod/Tazobactam Sod (Zosyn) 4.5 gm in 120 mls @ 240 mls/hr IV NOW ONE Stop: 12/22/20 15:35 Last Infusion: 12/22/20 15:44 Dose: 0 mls/hr Documented by: [id number] Admin: 12/22/20 15:12 Dose: 240 mls/hr Documented by: [id number] Lactated Ringer's (Lr) 1,000 mls @ 125 mls/hr IV .Q8H [facility]ASHI Stop: 01/21/21 15:44 Last Admin: 12/22/20 21:55 Dose: Not Given Documented by: [id number] Cefoxitin Sodium 2,000 mg/ (Dextrose) 60 mls @ 100 mls/hr IV ONCE ONE Stop: 12/22/20 21:11 Last Infusion: 12/22/20 21:55 Dose: 0 mls/hr Documented by: [id number] Admin: 12/22/20 19:52 Dose: 100 mls/hr Documented by: [id number] Ioversol (Optiray 300 100ml) 89 ml IV ONCE ONE Stop: 12/22/20 14:12 Last Admin: 12/22/20 14:11 Dose: 89 ml Documented by: [id number] Metoclopramide HCl (Metoclopramide Hcl Inj 5 Mg/Ml 2 Ml Vial) 10 mg IV NOW STA Stop: 12/22/20 13:13 Last Admin: 12/22/20 13:45 Dose: 10 mg Documented by: [id number] Miscellaneous Information (Piperacill/Tazobac Consult Active) 1 ea N/A UD PRN PRN Reason: Consult Stop: 01/21/21 15:05 Last Admin: 12/22/20 15:13 Dose: 1 ea Documented by: [id number] Morphine Sulfate (Morphine Sulfate 2 Mg/Ml Carp) 2 mg IV Q1H PRN PRN Reason: Moderate Pain (Rating 3,4,5,6) Stop: 01/05/21 15:43 Last Admin: 12/22/20 16:58 Dose: 2 mg Documented by: [id number] Imaging Data Radiologist's Impression: Abdomen/Pelvis CT 12/22/20 13:11 CT OF THE ABDOMEN AND PELVIS WITH CONTRAST CLINICAL HISTORY: Abdominal pain. Fever. COMPARISON STUDY: None. TECHNIQUE: Following IV administration of 89 mL of Optiray, axial images of the abdomen and pelvis were obtained from the lung bases to the proximal femurs. Images were reviewed in the axial, sagittal, and coronal planes. IV contrast was administered without complication. Automated exposure control was utilized for the study. A dose lowering technique was utilized adhering to the principles of ALARA. CT DOSE: 620.82 mGy.cm FINDINGS: No pneumatosis or portal venous gas is present. There is probable hepatic stent stenosis. The spleen, adrenal glands and pancreas are unremarkable. Water attenuation bilateral renal lesions reflect cysts. There is no hydronephrosis. There are punctate calculi within the lower pole of the right kidney. Colonic diverticulosis is noted without evidence for acute d iverticulitis. The appendix is dilated, measuring 1.6 cm in caliber. The wall thickening. Multiple locules of extraluminal gas are noted along the medial aspect of the appendix. The findings represent a perforation. There is moderate periappendiceal infiltration. No suspicious osseous lesions are present. Major vasculature is patent. IMPRESSION: Findings consistent with perforated acute appendicitis. Dilated appendix with periappendiceal infiltration, fluid and multiple locules of extraluminal gas. ACT 112: Negative or not required by law. Electronically signed by: Víctor Ward M.D. 12/22/2020 2:51 PM Chest X-Ray 12/22/20 13:15 XR chest 1V portable CLINICAL HISTORY: fever COMPARISON STUDY: Chest radiograph and chest CT April 21, 2019 FINDINGS: Lung volumes are normal. Lungs are clear. There is no pneumothorax or pleural effusion. Cardiac size is normal. Mediastinal contours are normal. There is no evidence for pulmonary edema. IMPRESSION: No acute cardiopulmonary findings. ACT 112: Negative or not required by law. Electronically signed by: Víctor Ward M.D. 12/22/2020 1:41 PM Discharge Plan Visit Data Chief Complaint: Abdominal Pain Stated Complaint: AB PAIN ED Provider: Frandy Infante Discharge Problem: Acute perforated appendicitis, Abdominal pain, Leukocytosis Patient Disposition: Admitted As Inpatient Discharge Instructions Interventions: ED Discharge Assessment Last Done: 12/22/20 18:43 Discharge Problem: Abdominal pain Qualifiers: Abdominal location: right lower quadrant Qualified Code(s): R10.31 - Right lower quadrant pain Leukocytosis Qualifiers: Leukocytosis type: unspecified Qualified Code(s): D72.829 - Elevated white blood cell count, unspecified
--- NOTE | 2020-12-22 18:35 | Anesthesiology Consultation ---
Date of Service December 22, 2020 Assessment & Plan (1) Encounter for pre-operative examination: (2) Paroxysmal A-fib: Chart Review Chart Review: Acceptable Risk for Surgery History Surgery Operation Date: 12/22/20 17:00 Proposed Procedures p Laparoscopic Appendectomy, Possible Open - Huan Boyd DO, FACS Height/Weight Height: 5 ft 11 in Weight: 88.2 kg Allergies Allergy/AdvReac Type Severity Reaction Status Date / Time No Known Allergies Allergy Mild Verified 12/22/20 14:57 Medications Home Medications Medication Instructions Recorded Confirmed Last Taken acetaminophen [Tylenol 8 Hour] 650 mg PO Q12H PRN 12/22/20 12/22/20 12/22/20 06:00 aspirin 81 mg PO QAM 12/22/20 12/22/20 12/19/20 escitalopram oxalate [Lexapro] 5 mg PO QAM 12/22/20 12/22/20 12/19/20 melatonin 10 mg PO HS PRN 12/22/20 12/22/20 12/19/20 metoprolol tartrate 12.5 mg PO BID 12/22/20 12/22/20 12/20/20 [id number] 1 tab PO QAM 12/22/20 12/22/20 12/19/20 [Centrum Silver] omega-3 fatty acids [Fish Oil 1,000 mg PO QAM 12/22/20 12/22/20 12/19/20 Concentrate] saw palmetto 160 mg PO QAM 12/22/20 12/22/20 12/19/20 Active Medications Generic Name Dose Route Start Last Admin Trade Name Freq PRN Reason Stop Dose Admin Miscellaneous Information 1 ea 12/22/20 15:06 12/22/20 15:13 Piperacill/Tazobac Consult Active N/A 01/21/21 15:05 1 ea UD PRN Administration Consult Morphine Sulfate 2 mg 12/22/20 15:44 12/22/20 16:58 Morphine Sulfate 2 Mg/Ml Carp IV 01/05/21 15:43 2 mg Q1H PRN Administration Moderate Pain (Rating 3,4,5,6) NPO Date Last Intake of Fluids: 12/22/20 Time Last Intake of Fluids: 08:00 Date Last Intake of Solids: 12/21/20 Past Medical History Medical History (Updated 12/22/20 @ 18:37 by Fredrick Harrison MD) Acute perforated appendicitis Cigarette smoker HLD (hyperlipidemia) Paroxysmal A-fib Prediabetes Tobacco use disorder Past Family History Family History Other Diabetes Heart disease Past Surgical History Surgical History (Updated 12/22/20 @ 18:33 by Fredrick Harrison MD) No significant past surgical history Social History Smoking Status: Never smoker tobacco type: cigarettes and smokeless tobacco Smoking cigarettes per day: 3-4 CIGARETTES PER WEEK, CHEWING TOBACCO 1.5 CANS/WEEK Hx Alcohol Use: Yes Alcohol type: beer Hx Substance Use: No substance use type: marijuana Last Used Substance Other:: 20 YEARS AGO Physical Exam Vital Signs Last Vital Signs Temp 36.7 C 12/22/20 12:15 Pulse 75 12/22/20 18:20 Resp 18 12/22/20 18:20 BP 97/65 L 12/22/20 18:00 Pulse Ox 94 12/22/20 18:20 Testing Laboratory Results 12/22/20 12:45 12/22/20 12:45 Urine Color Dark Yellow 12/22/20 14:02 Urine Appearance Clear (Clear) 12/22/20 14:02 Urine pH 6.0 (4.5-7.5) 12/22/20 14:02 Ur Specific [place] 1.024 (1.000-1.030) 12/22/20 14:02 Urine Protein 1+ (Negative) H 12/22/20 14:02 Urine Glucose (UA) Negative (Negative) 12/22/20 14:02 Urine Ketones Trace (Negative) H 12/22/20 14:02 Urine Nitrite Negative (Negative) 12/22/20 14:02 Ur Leukocyte Esterase Negative (Negative) 12/22/20 14:02 Urine WBC (Auto) 1-5 /hpf (0-5) 12/22/20 14:02 Urine RBC (Auto) 0-4 /hpf (0-4) 12/22/20 14:02 U Hyaline Cast (Auto) 1-5 /lpf (0-5) 12/22/20 14:02 U Epithel Cells (Auto) 5-10 /lpf (0-5) H 12/22/20 14:02 Urine Bacteria (Auto) Negative (Negative) 12/22/20 14:02 COVID test negative today Electrocardiogram Date: 12/22/20 Findings: + NSR @ (91) and + LA (minimal criteria for anterior infarct) Chest X-Ray Date: 12/22/20 Findings: + NAD Echocardiogram Date: 04/21/19 EF: 55% LV Function: normal Valvular Disease: + no significant valvular disease
[2020-12-22] MEDS ORDERED: ATROPINE SULFATE 0.1 MG/ML 10ML SYR IV PRN ×2 (18:37→20:08)
[2020-12-22] MEDS ORDERED: KETOROLAC 30 MG/ML VIAL IV PRN (18:37)
[2020-12-22] MEDS ORDERED: fentaNYL citrate 100 MCG/2 ML VIAL IV PRN ×2 (18:37→20:08)
[2020-12-22] MEDS ORDERED: ONDANSETRON INJ 2 MG/ML 2 ML VIAL IV PRN ×3 (18:37→21:32)
[2020-12-22] MEDS ORDERED: PROMETHAZINE HCL 12.5 MG in SODIUM CHLORIDE 0.9% 50 ML IV PRN ×2 (18:37→20:08)
[2020-12-22] MEDS ORDERED: BUPIVACAINE 0.5 % 5 MG/1 ML MPF 30ML VIAL ONE (19:14)
[2020-12-22] MEDS ORDERED: MIDAZOLAM HCL 1 MG/ML 2ML VIAL ONE (19:16)
[2020-12-22] MEDS ORDERED: fentaNYL citrate 100 MCG/2 ML VIAL ONE (19:17)
[2020-12-22] MEDS ORDERED: METOCLOPRAMIDE HCL INJ 5 MG/ML 2 ML VIAL IV PRN (20:08)
[2020-12-22] MEDS ORDERED: ePHEDrine sulfate 50 MG/ML AMP IV PRN (20:08)
[2020-12-22] MEDS ORDERED: HYDROmorphone INJ 2 MG/ML SYR/VIAL IV PRN (20:08)
[2020-12-22] MEDS ORDERED: PROPOFOL IV EMULSION 10 MG/ML 20 ML VIAL IV ONE (20:10)
[2020-12-22] MEDS ORDERED: DEXAMETHASONE SOD INJ 4 MG/ML VIAL ONE (20:11)
[2020-12-22] MEDS ORDERED: ROCURONIUM BROMIDE 10 MG/ML 5 ML VIAL IV ONE (20:11)
[2020-12-22] MEDS ORDERED: ONDANSETRON INJ 2 MG/ML 2 ML VIAL ONE (20:11)
[2020-12-22] MEDS ORDERED: LIDOCAINE HCL 2% 2 ML VIAL/AMP(20MG/ML) INFIL ONE (20:11)
[2020-12-22] MEDS ORDERED: ROCURONIUM BROMID 50MG/5ML SYR ONE (20:11)
[2020-12-22] MEDS ORDERED: GLYCOPYRROLATE 0.2 MG/ML VIAL ONE (20:12)
[2020-12-22] MEDS ORDERED: NEOSTIGMINE METHYLSULFATE 5 MG/5 ML SYR ONE (20:12)
[2020-12-22] MEDS ORDERED: cefOXitin 2,000 MG in DEXTROSE 5% 50 ML IV ONE (20:36)
--- NOTE | 2020-12-22 20:46 | Operative Report ---
PG Post Operative Report Pre & Post Diagnosis Operation Date: 12/22/20 17:00 Pre-Op Diagnosis: Acute perforated appendicitis Post-Op Diagnosis: Acute perforated appendicitis I identified the patient and participated in the time-out.: Yes Procedure Operation Date: 12/22/20 17:00 Actual Procedures p Laparoscopic Appendectomy(Not Applicable) - Huan Boyd DO, FACS Surgeon Huan Boyd DO, FACS Plant Hr Manager Dallin [place] Estimated Blood Loss 20 Findings Consistent with Post-Op Diagnosis Acute, perforated appendicitis. Contained, no abscess or feculent drainage. Supple base. Good hemostasis. 10 mm CALDERON drain placed. Specimens Appendix Drains 10 mm CALDERON drain in the right lower quadrant Anesthesia Type General Complications none Disposition Accompanied Patient To Recovery: No Disposition: Recovery Room Indications 60-year-old male presented to the emergency department with abdominal pain and elevated white count, CT showed severe acute appendicitis with contained perforation. The risks of the procedure were discussed, all questions were answered, and the patient agreed to proceed with surgery as planned. Description of Procedure The patient was properly identified, consented, and taken to the operating room where he was placed in the supine position. General endotracheal anesthesia was induced. SCDs and a safety belt were placed. Preoperative antibiotics were administered. A Dumont catheter was not placed. The patient's abdomen was prepped and draped in the standard sterile fashion. Surgical timeout was performed and all parties were in agreement that this was the correct patient and procedure to be performed and we continued as planned. A curvilinear infraumbilical incision was made with electrocautery and deepened down to the fascia with blunt dissection. The base of the umbilicus was grasped with a Kranthi and elevated towards the ceiling. An incision was made in the midline fascia with a knife and entry into the peritoneum was confirmed. Stay suture of 0 Vicryl was placed and a Villalobos trocar was inserted. The abdomen was insufflated with carbon dioxide which the patient tolerated without incident. The laparoscope was inserted and no damage from initial trocar placement was noted, no gross abnormalities were noted within the 4 quadrants the abdomen. 5 mm ports were then placed in the left lower quadrant with care not to damage the epigastric vessels, and in the suprapubic midline with care not to damage the bladder. The patient was placed in Trendelenburg position and rotated towards the left. The small bowel was swept away from the right lower quadrant. The distal ileum was densely adherent to the right lower quadrant and this was gently teased away with blunt dissection. There was some turbid fluid in the right lower quadrant which was suctioned. With careful dissection I was able to tease the small khris l in the small bowel mesentery away from what appeared to be the perforated appendix. The cecum was grasped with an atraumatic grasper exposing the base of the appendix. The appendix was significantly inflamed and there was a focal area of gangrene with a perforation. A window was created between the base of the appendix and the mesoappendix. A purple loaded endoscopic stapler was then used to divide the appendix at its base. The sonocision was then used to divide the mesoappendix. There were 1 or 2 areas of bleeding which were controlled with repeated fires of the sonocision and hemostasis was achieved. The appendix was placed in an Endo Catch bag and removed through the umbilical port site. The right lower quadrant and pelvis was irrigated and hemostasis was found to be good. A 10 mm CALDERON drain was placed in the right lower quadrant and exited through the left lower quadrant incision site. This was secured into place with a 2-0 nylon suture. The remaining trochars were removed and the abdomen was allowed to collapse. The umbilical port site fascia was closed with 0 Vicryl suture. The wound was irrigated, and the skin of all ports was closed with 4-0 Monocryl subcuticular sutures. Dermabond was placed over the wounds. A drain dressing was placed around the CALDERON. The patient was extubated in the operating room and taken to the PACU where he recovered without apparent incident. All sponge, instrument and needle counts were correct at the conclusion of the procedure. The patient tolerated the procedure well. The physician's dam tender assistant was present and scrubbed for the entire the case. He was critical in positioning the patient, prepping and draping, retraction and exposure, driving the laparoscope, closure the incisions, and placement of the dressings. I attest to the content of the Intraoperative Record and any orders documented therein. Any exceptions are noted below.
[2020-12-22] MEDS ORDERED: oxyCODONE HCL SOLN 5 MG/5 ML UDC PO PRN (21:32)
[2020-12-22] MEDS ORDERED: KETOROLAC TROMETHAMINE 15 MG/ML VIAL IV PRN (21:32)
[2020-12-22] MEDS: ACETAMINOPHEN 1,000 MG/100 ML VIAL IV SCH (22:05)
[2020-12-22] MEDS: LACTATED RINGER'S 1,000 ML IV SCH (22:05)
[2020-12-22] MEDS: PIPERACILLIN/TAZOBACTAM 3.375 GM in DEXTROSE 5% 100 ML IV SCH (22:07)
--- NOTE | 2020-12-22 22:24 | Anesthesiology Progress Note ---
Date of Service December 22, 2020 Anesthesia Post Procedure Vital Signs Vital Signs: Temp Pulse Pulse Pulse Resp BP BP 12/22/20 22:00 36.9 C 74 20 114/74 12/22/20 21:32 37 C 79 18 111/70 12/22/20 21:30 79 18 113/74 12/22/20 21:20 37.2 C 83 17 125/77 12/22/20 21:10 89 17 125/75 12/22/20 21:00 88 18 127/76 12/22/20 20:50 37.2 C 85 19 139/103 H 12/22/20 18:31 77 19 12/22/20 18:30 78 18 102/67 12/22/20 18:20 75 18 12/22/20 18:10 76 17 12/22/20 18:01 74 18 12/22/20 18:00 75 19 97/65 L 12/22/20 17:50 75 18 12/22/20 17:40 76 17 12/22/20 17:31 78 16 12/22/20 17:30 81 17 96/64 L 12/22/20 17:20 84 18 12/22/20 17:10 79 18 12/22/20 17:01 78 18 12/22/20 17:00 76 19 105/68 12/22/20 16:50 85 21 12/22/20 16:40 79 19 12/22/20 16:31 95 H 15 12/22/20 16:30 84 21 106/70 12/22/20 16:20 83 20 12/22/20 16:10 82 21 12/22/20 16:01 86 22 12/22/20 16:00 84 21 103/71 12/22/20 15:50 81 17 12/22/20 15:40 82 18 12/22/20 15:31 89 21 12/22/20 15:30 85 19 101/71 12/22/20 15:20 86 15 12/22/20 15:10 86 23 12/22/20 15:01 82 18 12/22/20 15:00 95 H 17 103/67 12/22/20 14:50 83 17 12/22/20 14:40 83 19 12/22/20 14:31 83 16 12/22/20 14:30 85 19 106/69 12/22/20 14:20 91 H 30 H 12/22/20 14:19 90 35 H 12/22/20 14:01 92 H 23 12/22/20 14:00 100 H 21 122/78 12/22/20 13:50 89 24 12/22/20 13:40 85 20 12/22/20 13:31 96 H 16 12/22/20 13:30 93 H 25 H 127/72 12/22/20 13:20 113 H 15 12/22/20 13:10 97 H 18 12/22/20 13:01 90 18 12/22/20 13:00 89 19 120/70 12/22/20 12:52 91 H 21 12/22/20 12:47 101 H 22 114/74 12/22/20 12:15 36.7 C 107 H 18 127/79 Pulse Ox 12/22/20 22:00 96 12/22/20 21:32 94 12/22/20 21:30 94 12/22/20 21:20 94 12/22/20 21:10 95 12/22/20 21:00 95 12/22/20 20:50 95 12/22/20 18:31 95 12/22/20 18:30 94 12/22/20 18:20 94 12/22/20 18:10 94 12/22/20 18:01 94 12/22/20 18:00 94 12/22/20 17:50 94 12/22/20 17:40 94 12/22/20 17:31 93 12/22/20 17:30 94 12/22/20 17:20 94 12/22/20 17:10 93 12/22/20 17:01 93 12/22/20 17:00 94 12/22/20 16:50 94 12/22/20 16:40 93 12/22/20 16:31 93 12/22/20 16:30 93 12/22/20 16:20 94 12/22/20 16:10 94 12/22/20 16:01 93 12/22/20 16:00 94 12/22/20 15:50 93 12/22/20 15:40 93 12/22/20 15:31 93 12/22/20 15:30 94 12/22/20 15:20 94 12/22/20 15:10 95 12/22/20 15:01 94 04/25/21 15:00 93 12/22/20 14:50 94 12/22/20 14:40 94 12/22/20 14:31 95 12/22/20 14:30 94 12/22/20 14:20 94 12/22/20 14:19 93 12/22/20 14:01 12/22/20 14:00 12/22/20 13:50 93 12/22/20 13:40 94 12/22/20 13:31 96 12/22/20 13:30 95 12/22/20 13:20 94 12/22/20 13:10 95 12/22/20 13:01 94 12/22/20 13:00 94 12/22/20 12:52 93 12/22/20 12:47 93 12/22/20 12:15 94 Pain Intensity Abdomen: Pain Intensity: 1 Transfer of Care Handoff Completed per policy Notes Mental Status: alert / awake / arousable and participated in evaluation Patient Amnestic to Procedure: Yes Nausea / Vomiting: adequately controlled Pain: adequately controlled Airway Patency, RR, SpO2: stable & adequate BP & HR: stable & adequate Hydration State: stable & adequate Anesthetic Complications: no major complications apparent
[2020-12-22] MEDS: METOPROLOL TARTRATE 25 MG TAB PO SCH (23:30)
[2020-12-23] MEDS: ACETAMINOPHEN 1,000 MG/100 ML VIAL IV SCH ×3 (06:04→22:18)
[2020-12-23] MEDS: PIPERACILLIN/TAZOBACTAM 3.375 GM in DEXTROSE 5% 100 ML IV SCH ×3 (06:05→22:18)
[2020-12-23 06:19] LABS: Basophils # (auto) 0.02 K/uL (0-0.2); Basophils % (auto) 0.1 %; Hematocrit (blood only) 38.4 % (42-52); Immature Granulocytes # (auto) 0.01 K/uL (0.00-0.02); Immature Granulocytes % (auto) 0.1 %; Lymphocytes # (auto) 0.71 K/uL (1.2-3.4); Lymphocytes % (auto) 5.2 %; Mean Corpuscular Hemoglobin 33.3 pg (25-34); Mean Corpuscular Volume 91.4 fL (80-100); Mean Platelet Volume 10.8 fL (7.4-10.4); Monocytes # (auto) 0.71 K/uL (0.11-0.59); Monocytes % (auto) 5.2 %; Neutrophils # (auto) 12.15 K/uL (1.4-6.5); Neutrophils % (auto) 89.4 %; Platelet Count 160 K/uL (130-400); RDW Coefficient of Variation 13.7 % (11.5-14.5)
[2020-12-23 06:47] LABS: BUN Creatinine Ratio 11.5 (10-20); Calcium 8.1 mg/dl (8.5-10.1); Creatinine Clr Calc Pharmacy 92.7 ml/min; Est GFR (African American) 106.7; Est GFR (Non-African American) 92.1; Mean Corpuscular Hgb Conc 36.5 g/dL (32-36)
[2020-12-23] MEDS: METOPROLOL TARTRATE 25 MG TAB PO SCH ×2 (09:53→20:36)
[2020-12-23] MEDS: ESCITALOPRAM OXALATE 10 MG TAB PO SCH (09:53)
[2020-12-23] MEDS: ENOXAPARIN INJ 40 MG/0.4 ML SYR SQ SCH (09:59)
--- NOTE | 2020-12-23 10:52 | Surgery Progress Note ---
Date of Service December 23, 2020 Assessment & Plan (1) Acute perforated appendicitis: POD 1 appendectomy WBC improved to 13 cont drain & IV abx 24-48 hours advance diet slowly Admission and Anticipated Discharge Date Admission Date: December 22, 2020 Supervising Physician Co-Signing Physician Notes Patient seen and examined, labs reviewed, agree with above. POD #1 laparoscopic appendectomy for appendicitis with contained perforation. Overall doing well, still sore. Not very hungry at this time. He is passing gas. On exam he is afebrile stable vitals. CALDERON with serosanguineous drainage. Incisions without infection. Abdomen appropriately tender. WBC 13 from 17 preop. We will continue IV antibiotics and CALDERON drain for another day or 2. He will be discharged with 10 to 14 days of antibiotics. Subjective no c/o, no fevers or chills Physical Exam Gastrointestinal (Abdomen): Inspection/Auscultation: + abdominal surgical incision (dressing intact) and + abdominal surgical drain present (70 cc total) Percussion/Palpation: abdomen soft Results & Data ([facility]) Vital Signs (Past 12 Hours) Vital Signs Temp Pulse Resp BP Pulse Ox 12/23/20 07:29 36.7 C 60 17 105/69 93 12/23/20 03:50 37.0 C 70 16 105/68 94 12/23/20 00:48 36.6 C 71 16 110/69 92 12/22/20 23:21 36.7 C 66 20 122/73 93 PG Care Time/CCT Total # of Minutes Spent Total Time Spent with Patient: Total time spent is greater than 50% in coordination of care (as documented) at patient's floor/unit and/or counseling patient: Coding Level of Care Code None Diagnoses Acute perforated appendicitis K35.32
[2020-12-23] MEDS: LACTATED RINGER'S 1,000 ML IV SCH ×2 (10:56→15:05)
--- NOTE | 2020-12-23 14:14 | Electrocardiogram Report ---
Test Reason : Blood Pressure : / mmHG Vent. Rate : 091 BPM Atrial Rate : 091 BPM P-R Int : 156 ms QRS Dur : 090 ms QT Int : 364 ms P-R-T Axes : 070 -26 036 degrees QTc Int : 447 ms Normal sinus rhythm Left atrial enlargement Poor R wave progression, consider anterior CO vs. lead placement vs. LVH Abnormal ECG When compared with ECG of 14-SEP-2019 01:56, Minimal criteria for Anterior infarct are now Present Confirmed by Dae Mercado ([id number]) on 12/23/2020 2:14:30 PM Referred By: REFERRED SELF Confirmed By:Dae Mercado
[2020-12-24] MEDS: ACETAMINOPHEN 1,000 MG/100 ML VIAL IV SCH (05:39)
[2020-12-24] MEDS: PIPERACILLIN/TAZOBACTAM 3.375 GM in DEXTROSE 5% 100 ML IV SCH (05:39)
[2020-12-24] MEDS: LACTATED RINGER'S 1,000 ML IV SCH (05:45)
[2020-12-24 06:33] LABS: Basophils # (auto) 0.03 K/uL (0-0.2); Basophils % (auto) 0.3 %; Hematocrit (blood only) 38.2 % (42-52); Hemoglobin 13.4 g/dL (14.0-18.0); Immature Granulocytes # (auto) 0.01 K/uL (0.00-0.02); Immature Granulocytes % (auto) 0.1 %; Lymphocytes # (auto) 2.36 K/uL (1.2-3.4); Lymphocytes % (auto) 23.2 %; Mean Corpuscular Hemoglobin 32.4 pg (25-34); Mean Corpuscular Hgb Conc 35.1 g/dL (32-36); Mean Corpuscular Volume 92.3 fL (80-100); Mean Platelet Volume 10.8 fL (7.4-10.4); Monocytes # (auto) 0.63 K/uL (0.11-0.59); Monocytes % (auto) 6.2 %; Neutrophils # (auto) 6.96 K/uL (1.4-6.5); Neutrophils % (auto) 68.2 %; Platelet Count 180 K/uL (130-400); RDW Coefficient of Variation 13.9 % (11.5-14.5); RDW Standard Deviation 47.1 fL (36.4-46.3); Red Blood Count 4.14 M/uL (4.7-6.1); White Blood Count 10.19 K/uL (4.8-10.8)
--- NOTE | 2020-12-24 07:38 | Surgery Progress Note ---
Date of Service December 24, 2020 Assessment & Plan (1) Acute perforated appendicitis: POD 2 appendectomy WBC improved to 10 recheck later today, anticipate d/c Admission and Anticipated Discharge Date Admission Date: December 22, 2020 Supervising Physician Co-Signing Physician Notes Patient seen and examined, labs reviewed, agree with above. POD #2 laparoscopic appendectomy for acute appendicitis with contained perforation. Tolerating regular diet, had a bowel movement, no pain. On exam he is afebrile stable vitals. Abdomen is soft, probably tender to palpation, some ecchymosis around umbilical incision but no evidence of infection. CALDERON drain serosanguineous. WBC 10. Will DC drain, DC to home, follow-up in 10 to 14 days in general surgery clinic. Patient remain on antibiotics for another week. Subjective tolerating regular , no fevers/chills Physical Exam Gastrointestinal (Abdomen): Inspection/Auscultation: + abdominal surgical incision (dry) and + abdominal surgical drain present (40 cc overnight) Percussion/Palpation: abdomen soft Results & Data ([facility]) Vital Signs (Past 12 Hours) Vital Signs Temp Pulse Resp BP Pulse Ox 12/24/20 07:23 36.5 C 57 L 16 132/81 94 12/23/20 23:34 36.9 C 57 L 16 124/78 95 PG Care Time/CCT Total # of Minutes Spent Total Time Spent with Patient: Total time spent is greater than 50% in coordination of care (as documented) at patient's floor/unit and/or counseling patient: Coding Level of Care Code None Diagnoses Acute perforated appendicitis K35.32
[2020-12-24] MEDS: ESCITALOPRAM OXALATE 10 MG TAB PO SCH (08:09)
[2020-12-24] MEDS: METOPROLOL TARTRATE 25 MG TAB PO SCH (08:09)
[2020-12-24] MEDS: ENOXAPARIN INJ 40 MG/0.4 ML SYR SQ SCH (08:09)
--- NOTE | 2020-12-26 11:22 | Discharge Summary ---
Date of Service December 26, 2020 Admission HPI Per Admitting Provider 60-year-old male presented to the emergency department with 3 days of abdominal pain. Mostly lower abdominal in nature. He had some relief yesterday evening but became much worse this morning when standing up and walking around. He has never had pain like this before. He gets colonoscopies every 5 years with no significant abnormalities. He reported some fevers at home. N.p.o. since 8:00 this morning after drinking some Gatorade. No prior abdominal surgeries. Has some hypertension. Principal Diagnosis Perforated appendicitis Discharge Exam Constitutional WD/WN, vitals as above Gastrointestinal (Abdomen) Inspection/Auscultation: + abdominal surgical incision (no erythema); abdomen not distended Percussion/Palpation: abdomen soft Discharge Data Allergies Allergy/AdvReac Type Severity Reaction Status Date / Time No Known Allergies Allergy Mild Verified 12/22/20 14:57 Consultations 12/22/20 15:43 Consult General Surgery Stat 12/22/20 16:42 ED Decision to Admit Stat Procedures Performed Operation Date: 12/22/20 17:00 Actual Procedures p Laparoscopic Appendectomy(Not Applicable) - Huan oByd, , FACS Ordered Studies 12/22/20 13:11 CT abd pelvis IV con only Stat Hospital Course (1) Acute perforated appendicitis: 60 y/o male presented to the ER with 3 days of abdominal pain. White count was 17,[address] was consistent with perforated appendicitis. He was taken to the operating room for laparoscopic appendectomy and transferred to the surgical floor for observation. CALDERON drain was placed and he was kept on IV Zosyn. By the next morning his white count was improved and he was able to tolerate an advancing diet. By day 2 his white count had normalized and he remained afebrile. CALDERON drain was removed and he was stable for discharge home on oral antibiotics. Total Time Total Time Spent Total Time Spent (In Minutes): 15 Discharge Plan Discharge Items Patient Disposition: Home - Self-Care Reason For Visit: APPY Discharge Diagnosis: appendectomy Activity: Per Instructions section Lifting: No more than 10 pounds Bathing Comment: may shower; no soaking in tubs/pools Exercise/Sports: Wait until after follow-up appointment Driving/Machine Use: do not resume driving while taking narcotics for pain Non-emergency contact: Surgeon Call non-emergency contact if: you have any medication questions, your symptoms worsen, your pain is worsening, your pain is unusual for you, your pain is concerning for you, you have a fever, your temperature is above 101.5, your wound has increased redness, your wound has increased drainage and your wound pain has increased Follow-up/Referrals: Huan Boyd DO, FACS [Physician] - 01/06/21 9:15 am (Please call to schedule follow up in clinic within 2 weeks) Ashok Mcghee DO [Primary Care Provider] - Diet: Regular Addtl Attending Provider Instructions: Do not take Tylenol concurrently with the narcotic Percocet. Both Tylenol and Percocet contain Acetaminophen and you should not exceed >3grams of Acetaminophen within a 24 hour time period. Please complete the full course of antibiotic prescribed to you Pending Studies at Discharge: Yes Studies:: surgical pathology Stand-Alone Forms: My [facility], Smoking Cessation Medications and DC Order Prescriptions: New amoxicillin-pot clavulanate [Augmentin] 875-125 mg tablet 1 tab PO Q12H Qty: 14 RF: 0 oxycodone-acetaminophen [Percocet] 5-325 mg tablet 1 - 2 tab PO .q4-6h PRN (Reason: pain, for initial therapy, max 6 tabs per day) Qty: 10 RF: 0 Continued omega-3 fatty acids [Fish Oil Concentrate] 1,000 mg Capsule 1,000 mg PO QAM RF: 0 aspirin 81 mg Tablet,Delayed Release (Dr/Ec) 81 mg PO QAM RF: 0 saw palmetto 160 mg Capsule 160 mg PO QAM RF: 0 [id number]-[id number] Tablet 1 tab PO QAM RF: 0 escitalopram oxalate [Lexapro] 5 mg Tablet 5 mg PO QAM RF: 0 melatonin 10 mg Tablet 10 mg PO HS PRN (Reason: Sleep) RF: 0 metoprolol tartrate 25 mg Tablet 12.5 mg PO BID RF: 0 Discontinued acetaminophen [Tylenol 8 Hour] 650 mg Tablet Extended Release 650 mg PO Q12H PRN (Reason: Pain) RF: 0 Discharge Orders: Discharge Order (Routine); Ordered 12/24/20 Ordered By: Fredrick Rust Jr Admission Data Admit Date/Time: 12/22/20 20:44 Attending Provider: Huan Boyd Admit Provider: Huan Boyd Primary Care Provider: Ashok Mcghee Other Providers: Huan Boyd Other Interventions: Discharge Summary Assessment (RN) Last Done: 12/24/20 11:01 Coding Level of Care Code D/C Day Management <30 mins Diagnoses Acute perforated appendicitis K35.32
== END 2020-12-24 12:03 | disposition home or self-care (01) ==
LOC: ED 12:05 → 3E 18:43 → OR 18:43